=== PATIENT | male | born 1945 | race Caucasian/White ===

== ENCOUNTER 2017-06-11 09:49 | Emergency (ER) | payer MEDICARE, OTHER, SELFPAY ==
[2017-06-11 09:52] VITALS: BP 146/98; PULSE 81; RESP 22; TEMP 37; O2SAT 95; BMI 30.3
--- NOTE | 2017-06-11 10:05 | RAD_ITS ---
STUDY: X-RAY CHEST REASON FOR EXAM: Male, 71 years old. Dyspnea and palpitations. TECHNIQUE: Single portable frontal chest. COMPARISON: 2 views of the chest dated August 15, 2012. FINDINGS: There is stable appearance and positioning of the 2-lead left pectoral pacemaker, well placed. Patient is status post CABG. There is mixed interstitial and alveolar density within the medial right lung base in the lateral left lung base. There is no pleural effusion. There is no pneumothorax. There is new mild enlargement of the cardiomediastinal silhouette. There is no vascular congestion identified. Normal visualized pulmonary arteries. There is atherosclerotic calcification of the aortic arch with tortuosity. There are diffuse degenerative changes of the visualized thoracic spine. There is no acute osseous abnormality. There is no demonstrated abnormality of the visualized soft tissue structures of the upper abdomen. RAD/Chest 1 View (Portable) IMPRESSION: Foci of atelectasis versus early consolidation within the right medial lung base and left lateral lung base. Status post CABG. Atherosclerotic peripheral vascular disease. Stable appearance and positioning of the 2-lead left pectoral pacemaker. Mild cardiomegaly. No pleural effusion. No pneumothorax. Electronically Signed: Fran Mott MD at 10:48 EDT , Service support ,
--- NOTE | 2017-06-11 10:06 | EKG12_ITS ---
Test Reason : PALPS Blood Pressure : / mmHG Vent. Rate : 068 BPM Atrial Rate : 197 BPM P-R Int : 000 ms QRS Dur : 124 ms QT Int : 464 ms P-R-T Axes : 265 083 -71 degrees QTc Int : 493 ms Atrial flutter with variable A-V block with frequent ventricular-paced complexes Inferior infarct , age undetermined ST & T wave abnormality, consider lateral ischemia Abnormal ECG Confirmed by BEVERLEY ARITA, LISA ([id number]), city editor EDOUARD SAPP ([id number]) on 06/14/2017 1:00:24 PM Referred By: ANDERSON Confirmed By:LISA LOWERY MD
[2017-06-11 10:10] VITALS: O2SAT 91
--- NOTE | 2017-06-11 10:10 | ED.DCSUM_ITS ---
- ER Visit Summary Date of Service: 06/11/17 Chief Complaint: [Palpitations and shortness of breath] History of Present Illness: The patient is a 71 M [presents the emergency department with palpitations that started for 5 days ago. Patient states that he has a vibrating sensation in the middle of his chest.] Patient denies any chest pain. Patient states that he has not been able to sleep for the last 2 nights due to feeling short of breath. Patient describes some swelling in both lower extremities. Overall the patient does not feel like he has gained weight though. Patient states last pacer check was about a month ago when he was told that he had 8 years left on his battery life. Patient does have a history of coronary artery disease and history of atrial fibrillation. Physical Examination: [HEENT-PERRLA, EOMI. Cranial nerves II through XII grossly intact. TMs clear. Mucous membranes moist. No adenopathy. Cardiovascular-irregularly irregular with a 2 out of 6 systolic ejection murmur. Lungs-clear to auscultation, chest wall stable without crepitus or subcu emphysema Abdomen-normoactive bowel sounds, soft, nontender, no rebound or rigidity, no peritoneal signs. Extremities-intact ?4, normal range of motion, normal pulses, atraumatic]. +1 edema bilateral lower extremities that is symmetric. Test Results: EKG obtained on arrival showed atrial flutter with variable AV block as well as old inferior infarct noted and nonspecific ST changes noted] CBC with differential showed a white count of 6.4, hemoglobin 13.5, hematocrit 40.5, platelets 142. Chemistries unremarkable. BUN was 18 and creatinine 1.34. Troponin was 0.15. BNP was 516. Chest x-ray showed some atelectasis versus consolidation left lung base. Patient had cardiomegaly. Patient clinically does not have pneumonia or infectious process. Emergency Department Course and Treatment: [Patient case was discussed with Dr. Cam Fong his cracking and fanning machine operator. Dr. Fong recommended starting patient on Lasix and potassium. Patient was given 40 mg Lasix IV.] Patient had his pacemaker interrogated and he is chronically in atrial flutter. It is anticoagulated. Treatment Plan: [Patient states that he has been very anxious and is requesting something for anxiety. Patient was started on Lasix and potassium. Patient will also be dispensed an albuterol MDI at his request because he feels like he is having wheezing at times. Disposition: [Discharged home in stable condition.] Impression: [Atrial flutter Dyspnea suspect secondary to CHF Anxiety] This note was generated with [employer] dictation software. It may contain incorrect words, spelling, and punctuation that were not noted in review of the chart prior to signing ED Disposition - Plan for ED Patient: Chief Complaint: Palpitations Referrals: Asaf Sanon MD [Primary Care Provider] -
[2017-06-11 10:33] LABS: Basophil# 0.01 X10^3/uL; Basophil% 0.2 % (0-1); Eosinophil# 0.08 X10^3/uL; Eosinophils% 1.3 % (0-5); Hematocrit 40.5 % (40-54); Hemoglobin 13.6 g/dl (13.0-16.5); Lymphocyte % 12.5 % (19-41); Mean Corp Hgb Conc 33.6 g/gl (32-36); Mean Corpuscular Volume 101.3 fL (80-94); Mean Platelet Vol. 11.2 fl (6.2-12.0); Monocyte# 0.53 X10^3/uL; Monocyte% 8.3 % (0-10); Neutrophil # 4.97 X10^3/uL (2.7-7.7); Neutrophil % 77.5 % (47-70); Platelet Count 142 K/mm3 (150-450); RBC Distribution Width CV 14.3 % (11.6-14.6); White Blood Count 6.4 K/mm3 (4.4-11.0)
[2017-06-11 10:35] LABS: POSITIVE COUNT NO; POSITIVE DIFFERENTIAL NO; POSITIVE MORPHOLOGY NO
[2017-06-11 10:39] VITALS: BP 162/106; PULSE 60; RESP 18; O2SAT 94
[2017-06-11 10:47] LABS: Anion Gap 8 (5-15); BUN 18 mg/dL (7-18); BUN/Creat Ratio 13.4 RATIO (10-20); Calcium,Total 8.9 mg/dL (8.5-10.1); Chloride 109 mmol/L (98-107); Creatinine, Serum 1.34 mg/dL (0.70-1.30); EST Glomerular Filtration Rate 55 mL/min (>60); Est Glom Filt Rate - Afr Amer 67 mL/min (>60); Estimated Creatinine Clearance 55.49 ml/min; Glucose 156 mg/dL (74-106); Potassium 3.8 mmol/L (3.5-5.1); Sodium Level 139 mmol/L (136-145)
[2017-06-11 11:01] LABS: BNP,B-Type NATRIURETIC PEPTIDE 516.1 pg/mL (0-100)
[2017-06-11 11:45] VITALS: BP 154/100; PULSE 69; RESP 22; O2SAT 96
[2017-06-11] MEDS: Furosemide 40 MG/4 ML Vial IV (12:03)
--- NOTE | 2017-06-11 12:05 | ED.DEP ---
ED Disposition - Plan for ED Patient: Chief Complaint: Palpitations Instructions: ED Paroxysmal Atrial Flutter, ED Afib, ED CHF General, ED Stress React Prescriptions: Furosemide [Lasix] 40 mg PO BIDLX #60 tab Lorazepam [Ativan] 1 mg PO TID PRN PRN #15 tab PRN Reason: Anxiety Potassium Chloride [K-Dur] 20 meq PO DAILY #30 tab Referrals: Asaf Sanon MD [Primary Care Provider] - Additional Instructions: Follow up with Dr. Fong's office Discontinue your HCTZ medication
--- NOTE | 2017-06-11 12:51 | PCM.PACRNU ---
Pacer Nurse Hospital Visit Notes: Dual Chamber Pacemaker Evaluation: Interrogation completed at bedside in ER#14 per MD order for increased SOB. Interrogation shows atrial burden 99.9%. Pt appears to be in atrial flutter continuously since 05/31/17. No VHR episodes noted since last check on 05/31/17. Ventricular rate fairly well controlled. Left pectoral pocket/incision w/o s/s of infection or erosion. Presenting rhythm shows atrial flutter with ventricular paced @ 62 ppm. CENTRAL SUPPLY MANAGER=94.2%. Battery longevity approx 5.5 yrs. Lead impedances and sensing remain stable. Normal PPM function. No parameter changes made. Dr. Garcia aware of above findings. Dr. Fong notified of above findings. No parameter changes made. Mel Jackson RN - Pacer Check Procedure Procedures: 94951 PM Eval Dual
== END 2017-06-11 12:30 | disposition home or self-care (01) ==
PROVIDERS: Emergency Provider Emergency Medicine; Family Provider Family Medicine; PCP Family Medicine
DX: I48.92 Unspecified atrial flutter (principal); R06.00 Dyspnea, unspecified; I50.9 Heart failure, unspecified; F41.9 Anxiety disorder, unspecified; I25.10 Atherosclerotic heart disease of native coronary artery without angina pectoris; I48.91 Unspecified atrial fibrillation; I25.2 Old myocardial infarction; E78.00 Pure hypercholesterolemia, unspecified; Z95.0 Presence of cardiac pacemaker; Z79.02 Long term (current) use of antithrombotics/antiplatelets; Z79.82 Long term (current) use of aspirin; Z79.899 Other long term (current) drug therapy
CPT/HCPCS: 71045; 80048; 83880; 84484; 85025; 93005; 94640; 96374; 99284; A4216; J1940

== ENCOUNTER → 2017-06-22 14:53 | Outpatient (CLI) | payer MEDICARE, OTHER, SELFPAY ==
[2017-06-22 15:54] LABS: Anion Gap 5 (5-15); BUN 17 mg/dL (7-18); BUN/Creat Ratio 11.4 RATIO (10-20); Calcium,Total 9.3 mg/dL (8.5-10.1); Chloride 106 mmol/L (98-107); Creatinine, Serum 1.49 mg/dL (0.70-1.30); EST Glomerular Filtration Rate 49 mL/min (>60); Est Glom Filt Rate - Afr Amer 59 mL/min (>60); Glucose 168 mg/dL (74-106); Potassium 3.9 mmol/L (3.5-5.1); Sodium Level 140 mmol/L (136-145)
== END ==
PROVIDERS: Family Provider Family Medicine; PCP Family Medicine; Visit Provider Physician Assistant Medical
DX: I48.0 Paroxysmal atrial fibrillation (principal); I25.5 Ischemic cardiomyopathy
CPT/HCPCS: 36415; 80048

== ENCOUNTER 2017-06-26 11:08 | Day surgery (SDC) | payer MEDICARE, OTHER, SELFPAY ==
[2017-06-25 08:47] VITALS: BMI 30.4
--- NOTE | 2017-06-26 12:48 | PCM.OP.BLANK ---
Problem List (1) Atrial flutter Status: Chronic Operative Report Date of Procedure: 06/26/17 DC cardioversion. Indication: Atrial flutter with a controlled ventricular response rate status post pacemaker placement. Symptomatic. Procedure: The patient was seen by Dr. Pedersen of the critical care division and after informed consent was obtained anterior posterior pads were applied. The patient was then administered 4 mg of intravenous etomidate and then underwent DC cardioversion with 200 J of synchronized DC cardioversion energy with prompt reversal to sinus rhythm. EKG documented AV sequential pacing. Conclusion: Successful DC cardioversion to sinus rhythm. Patient would follow-up with EKG in the office in a week.
--- NOTE | 2017-06-26 13:31 | PCM.OP.BLANK ---
Operative Report Date of Procedure: 06/26/17 CONSCIOUS SEDATION REPORT DATE OF SERVICE: June 26, 2017 BRIEF HISTORY OF PRESENT ILLNESS: The patient is a 71-year-old male who presented to [facility] for elective outpatient cardioversion due to underlying atrial fibrillation. The patient's most recent echocardiogram revealed ejection fraction of approximately 30%. The patient did undergo a previous cardioversion in December 2016, for which he received 4 mg of etomidate. The patient denies any previous anesthetic complications. He is currently anticoagulated on Xarelto. He does have a history of obstructive sleep apnea, for which he is reportedly compliant with use of nocturnal CPAP therapy. PHYSICAL EXAMINATION: VITAL SIGNS: Reviewed and were acceptable. GENERAL: The patient is a male, in no apparent distress, speaking in full sentences. HEENT: Normocephalic, atraumatic. Mucous membranes are moist and pink. Good mouth opening noted. Trachea is midline. Good neck mobility. CHEST: S1, S2 irregularly irregular. No murmurs, rubs or gallops were noted. LUNGS: Clear to auscultation bilaterally without appreciable wheezes, rales or rhonchi. ABDOMEN: Soft, nontender, nondistended. Positive bowel sounds. EXTREMITIES: There is no clubbing, cyanosis or edema. ASA Class: II DESCRIPTION OF PROCEDURE: After confirmation of informed consent, the patient's anesthesia plan was reviewed in detail. Etomidate was chosen. Risks and benefits were reviewed and the patient agreed to proceed. At 1234, the patient was given 4 mg of etomidate. The patient achieved an appropriate level of sedation and was given a 200 joule synchronized cardioversion by Dr. Fong at the bedside. This was successful in achieving normal sinus rhythm. The patient was monitored until 1244, at which time he reached his baseline mental status and function. The patient tolerated the procedure well. COMPLICATIONS: None ESTIMATED BLOOD LOSS: None RECOMMENDATIONS: Okay to recover in usual fashion. Code Visit 9xxxx: Other Procedure See Report - [id number]
== END 2017-06-26 13:00 | disposition home or self-care (01) ==
LOC: CLSP 11:10
PROVIDERS: Family Provider Family Medicine; PCP Family Medicine; Visit Provider Internal Medicine Cardiovascular Disease
DX: I48.92 Unspecified atrial flutter (principal); I34.0 Nonrheumatic mitral (valve) insufficiency; I49.5 Sick sinus syndrome; I25.10 Atherosclerotic heart disease of native coronary artery without angina pectoris; I25.810 Atherosclerosis of coronary artery bypass graft(s) without angina pectoris; I25.5 Ischemic cardiomyopathy; E78.5 Hyperlipidemia, unspecified; G47.33 Obstructive sleep apnea (adult) (pediatric); I25.2 Old myocardial infarction; G62.9 Polyneuropathy, unspecified; I13.0 Hypertensive heart and chronic kidney disease with heart failure and stage 1 through stage 4 chronic kidney disease, or unspecified chronic kidney disease; N18.9 Chronic kidney disease, unspecified; I50.22 Chronic systolic (congestive) heart failure; Z79.82 Long term (current) use of aspirin; Z79.02 Long term (current) use of antithrombotics/antiplatelets; Z79.899 Other long term (current) drug therapy
CPT/HCPCS: 92960; 93005; J7040

== ENCOUNTER 2018-01-22 19:23 | Emergency (ER) | payer MEDICARE, OTHER, SELFPAY ==
[2018-01-22 19:24] VITALS: BP 96/73; PULSE 66; RESP 18; TEMP 36; O2SAT 99; BMI 27.8
--- NOTE | 2018-01-22 19:38 | EKG12_ITS ---
Test Reason : HYPERGLYCEMIA Blood Pressure : / mmHG Vent. Rate : 060 BPM Atrial Rate : 060 BPM P-R Int : 372 ms QRS Dur : 128 ms QT Int : 472 ms P-R-T Axes : 000 -11 259 degrees QTc Int : 472 ms Atrial-paced rhythm with prolonged AV conduction Left ventricular hypertrophy with QRS widening and repolarization abnormality Inferior infarct , age undetermined Abnormal ECG Confirmed by LEONIDAS ARITA, GERARD ([id number]), purchasing expeditor EDOUARD SAPP ([id number]) on 01/25/2018 2:30:21 PM Referred By: BENY Confirmed By:GERARD LAUREN MD
[2018-01-22 19:41] LABS: Bedside Glucose 309 mg/dL (70-110)
[2018-01-22] MEDS: 0.9% Normal Saline 1,000 ML 1000 ML IV (20:01)
[2018-01-22 20:14] LABS: Absolute Lymphocyte Count 0.67 X10^3/ul (0.83-4.51); Absolute Neutrophil Count 2.2 X10^3/uL (2.0-7.7); Basophil# 0.01 X10^3/uL; Basophil% 0.3 % (0-1); Eosinophil# 0.13 X10^3/uL; Eosinophils% 3.8 % (0-5); Hematocrit 44.9 % (40-54); Hemoglobin 15.3 g/dl (13.0-16.5); Lymphocyte # 0.67 X10^3/ul (4.0); Lymphocyte % 19.6 % (19-41); Mean Corp Hgb Conc 34.1 g/gl (32-36); Mean Corpuscular Hgb 32.2 pg (27.0-32.0); Mean Corpuscular Volume 94.5 fL (80-94); Mean Platelet Vol. 11.4 fl (6.2-12.0); Monocyte# 0.43 X10^3/uL; Monocyte% 12.6 % (0-10); Neutrophil # 2.18 X10^3/uL (2.7-7.7); Neutrophil % 63.7 % (47-70); Platelet Count 128 K/mm3 (150-450); RBC Distribution Width CV 13.8 % (11.6-14.6); Red Blood Count 4.75 M/mm3 (4.6-6.2); White Blood Count 3.4 K/mm3 (4.4-11.0)
[2018-01-22 20:19] LABS: POSITIVE COUNT NO; POSITIVE DIFFERENTIAL NO; POSITIVE MORPHOLOGY NO
[2018-01-22 20:30] LABS: Anion Gap 7 (5-15); BUN 20 mg/dL (7-18); BUN/Creat Ratio 13.2 RATIO (10-20); Calcium,Total 8.9 mg/dL (8.5-10.1); Chloride 99 mmol/L (98-107); Creatinine, Serum 1.51 mg/dL (0.70-1.30); EST Glomerular Filtration Rate 48 mL/min (>60); Est Glom Filt Rate - Afr Amer 58 mL/min (>60); Glucose 294 mg/dL (74-106); Potassium 4.1 mmol/L (3.5-5.1); Sodium Level 135 mmol/L (136-145)
[2018-01-22 20:45] LABS: Bacteria 0 SEEN /hpf (None Seen); Mucous, Urine 0 SEEN /hpf (<or=2+); Red Blood Cells-Urine 0 SEEN /hpf (0-5); Squamous Epithelial Cells - UA 0 SEEN /hpf (0-5)
[2018-01-22 20:49] LABS: Color, Urine Yellow (Yellow); Glucose, Dipstick 1000 mg/dl (Normal); Ketone-Dipstick 5 mg/dl (Negative); Leukocyte Esterase-Dipstick Negative /ul (Negative); Nitrite-Dipstick Negative (Negative); Occult Blood-Urine 25 /ul (Negative); Protein-Dipstick 30 mg/dl (Negative); Specific Gravity, Urine 1.015 (1.002-1.030); Urine Bilirubin Dipstick Negative (Negative); Urine Clarity Clear (Clear); Urine Urobilinogen Normal (Normal)
[2018-01-22 20:58] LABS: Hyaline Cast 0-5 SEEN /lpf (0-5)
[2018-01-22 20:59] LABS: White Blood Cells 0-5 SEEN /hpf (0-5)
--- NOTE | 2018-01-22 21:22 | ED.VISSUMM ---
- ER Visit Summary Date of Service: 01/22/18 Chief Complaint: Blood sugar greater than 500 on routine blood work History of Present Illness: The patient is a 72 M who has multiple medical problems presents because blood sugar 8500. He had polyuria, polydipsia, nocturia and polyphagia for some time. He also reports intermittent blurred vision. He denies double vision or loss of vision. Denies fever, chills or night sweats. He denies trouble speech or swallowing. He denies cardiac respiratory symptoms. He denies nausea, vomiting or diarrhea. He denies skin lesion. He denies any neurologic symptoms. Past medical history coronary disease, GA, ischemic heart myopathy, paroxysmal atrial fibrillation, hypertension hypercholesterolemia. Does have a pacemaker. Physical Examination: Vital signs noted and unremarkable. HEENT exam is marked with dry mucosa and tongue. Trach is midline. Lungs are clear to auscultation. Heart is regular. Abdomen is soft nontender. Patient is alert and oriented ?3. Motor is 5 over 5. Sensory is intact. DTRs are symmetric with no clonus or Babinski sign. Cranial 2 through 12 are intact. Cerebellar testing is normal. Test Results: EKG reveals a atrial paced rhythm with prolonged [place] interval and QRS duration. There is evidence of LVH with repolarization changes. There is also evidence of a prior inferior GA. White count is 3.4 with 63% segs 30% lymphocytes. Sodium is 135. CO2 is 29 with an anion gap of 7. Blood sugars 294. BUN is 20 and currently is 1.51. Most recent creatinine was June 22, 2017 and was 1.49. Urine is marked for ketones, 5 and glucose, 1000. Emergency Department Course and Treatment: Patient has classic symptoms for new onset diabetes. He was administered 1 L of normal saline wide open. Since his anion gap is normal will treat with Metformin. She does first dose emergency department. He is to follow-up with Dr. tay in 1 week for diabetic education and counseling. Treatment Plan: Outpatient follow-up with his primary care physician Dr. Asaf tay Disposition: Discharged home in stable improved condition Impression: Newly diagnosed diabetes History coronary disease History of myocardial infarction History of ischemic cardia myopathy History hypertension History of hypercholesterolemia This note was generated with [employer] software. It may contain incorrect words, spelling, and punctuation that were not noted in review of the chart prior to signing ED Disposition - Plan for ED Patient: Disposition: Home or Assisted Living Chief Complaint: Hyperglycemia Instructions: ED Hyperglycemia Diabetic Prescriptions: Metformin HCl 500 mg PO BID #60 tablet Referrals: Asaf Sanon MD [Primary Care Provider] - 1 Week Additional Instructions: Your prescription was electronically transmitted to [facility] pharmacy in [facility]. [facility] for [facility] of blood sugar and diabetic counseling and education.
--- NOTE | 2018-01-22 21:27 | ED.DCSUM_ITS ---
- ER Visit Summary Date of Service: 01/22/18 Chief Complaint: Blood sugar greater than 500 on routine blood work History of Present Illness: The patient is a 72 M who has multiple medical problems presents because blood sugar 8500. He had polyuria, polydipsia, nocturia and polyphagia for some time. He also reports intermittent blurred vision. He denies double vision or loss of vision. Denies fever, chills or night sweats. He denies trouble speech or swallowing. He denies cardiac respiratory symptoms. He denies nausea, vomiting or diarrhea. He denies skin lesion. He denies any neurologic symptoms. Past medical history coronary disease, DC, ischemic heart myopathy, paroxysmal atrial fibrillation, hypertension hypercholesterolemia. Does have a pacemaker. Physical Examination: Vital signs noted and unremarkable. HEENT exam is marked with dry mucosa and tongue. Trach is midline. Lungs are clear to auscultation. Heart is regular. Abdomen is soft nontender. Patient is alert and oriented ?3. Motor is 5 over 5. Sensory is intact. DTRs are symmetric with no clonus or Babinski sign. Cranial 2 through 12 are intact. Cerebellar testing is normal. Test Results: EKG reveals a atrial paced rhythm with prolonged ID interval and QRS duration. There is evidence of LVH with repolarization changes. There is also evidence of a prior inferior DC. White count is 3.4 with 63% segs 30% lymphocytes. Sodium is 135. CO2 is 29 with an anion gap of 7. Blood sugars 294. BUN is 20 and currently is 1.51. Most recent creatinine was June 22, 2017 and was 1.49. Urine is marked for ketones, 5 and glucose, 1000. Emergency Department Course and Treatment: Patient has classic symptoms for new onset diabetes. He was administered 1 L of normal saline wide open. Since his anion gap is normal will treat with Metformin. She does first dose emergency department. He is to follow-up with Dr. tay in 1 week for diabetic education and counseling. Treatment Plan: Outpatient follow-up with his primary care physician Dr. Asaf tay Disposition: Discharged home in stable improved condition Impression: Newly diagnosed diabetes History coronary disease History of myocardial infarction History of ischemic cardia myopathy History hypertension History of hypercholesterolemia This note was generated with [employer] software. It may contain incorrect words, spelling, and punctuation that were not noted in review of the chart prior to signing ED Disposition - Plan for ED Patient: Disposition: Home or Assisted Living Chief Complaint: Hyperglycemia Instructions: ED Hyperglycemia Diabetic Prescriptions: Metformin HCl 500 mg PO BID #60 tablet Referrals: Asaf Sanon MD [Primary Care Provider] - 1 Week Additional Instructions: Your prescription was electronically transmitted to [facility] pharmacy in [facility]. [facility] for [facility] of blood sugar and diabetic counseling and education.
[2018-01-22 21:41] VITALS: BP 140/81; PULSE 61; RESP 16; O2SAT 98
== END 2018-01-22 21:41 | disposition home or self-care (01) ==
PROVIDERS: Emergency Provider Emergency Medicine; Family Provider Family Medicine; PCP Family Medicine
DX: E11.9 Type 2 diabetes mellitus without complications (principal); I25.10 Atherosclerotic heart disease of native coronary artery without angina pectoris; I25.2 Old myocardial infarction; G72.89 Other specified myopathies; I10 Essential (primary) hypertension; E78.00 Pure hypercholesterolemia, unspecified; Z95.0 Presence of cardiac pacemaker
CPT/HCPCS: 80048; 81001; 82962; 85025; 93005; 96360; 96361; 99284; J7030

== ENCOUNTER → 2018-03-29 12:59 | Outpatient (CLI) | payer MEDICARE, OTHER, SELFPAY ==
[2018-03-14 09:37] VITALS: BMI 27.8
--- NOTE | 2018-03-29 13:01 | ECHOD_ITS ---
Reason For Study: ATRIAL FIB-FLUTTER Procedure This was a 2D Doppler, Color Flow transthoracic echocardiogram. Exam performed in department. Left Ventricle Normal LV size. Mild concentric left ventricular hypertrophy. The estimated ejection fraction is 35 %. Moderate global left ventricular systolic dysfunction. Unable to assess diastolic dysfunction due to arrhythmia. Right Ventricle Normal RV size. ICD or pacer leads identified within the right ventricle. Normal systolic function. Atria The left atrium is mildly enlarged. The right atrium is mildly enlarged. Mitral Valve Normal mitral valve. Mild (1+) eccentric mitral valve insufficiency. Tricuspid Valve Normal tricuspid valve. Aortic Valve Normal aortic valve. Trisinus/trileaflet aortic valve. Mild (1+) eccentric aortic valve insufficiency. Pulmonic Valve Normal pulmonic valve. Great Vessels Normal aortic root. The pulmonary artery is normal size. Normal inferior vena cava. Pericardium/Pleural No pericardial effusion. MMode/2D Measurements & Calculations LVIDd: 5.5 cm IVSd: 1.2 cm Ao root diam: 3.6 cm LVIDs: 5.0 cm LVPWd: 1.3 cm RVDd: 3.6 cm FS: 7.6 % LAV(MOD-bp): 82.2 ml LVAd ap4: 43.3 cm2 SV(MOD-sp4): 51.8 ml LAV(MOD-bp) Indexed: 38.3 ml/m2 EDV(MOD-sp4): 176.6 ml LAV(MOD-sp2): 79.3 ml EDV(sp4-el): 179.9 ml LAV(MOD-sp4): 70.6 ml LVAs ap4: 34.8 cm2 ESV(MOD-sp4): 124.8 ml ESV(sp4-el): 127.3 ml EF(MOD-sp4): 29.3 % EF(sp4-el): 29.2 % SV(sp4-el): 52.6 ml LA A4 area: 25.5 cm2 LA dimension(2D): 4.4 cm RA A4 area: 23.2 cm2 Time Measurements MV dec time: 0.19 sec Doppler Measurements & Calculations MV E max mazin: 75.8 cm/sec Lat Peak E' Mazin: 10.2 cm/sec Med Peak E' Mazin: 3.7 cm/sec MV A max mazin: 55.7 cm/sec E/E' lat: 7.4 E/E' med: 20.6 MV E/A: 1.4 Ao V2 max: 122.7 cm/sec AI max mazin: 424.8 cm/sec LV V1 max: 78.1 cm/sec Ao max P.0 mmHg AI max P.2 mmHg LV V1 max P.4 mmHg AI dec slope: 185.9 cm/sec2 AI P1/2t: 669.1 msec PA V2 max: 64.4 cm/sec TR max mazin: 282.2 cm/sec TR max P.9 mmHg Interpretation Summary Normal LV size. Mild concentric left ventricular hypertrophy. The estimated ejection fraction is 35 %. Moderate global left ventricular systolic dysfunction. Unable to assess diastolic dysfunction due to arrhythmia. ICD or pacer leads identified within the right ventricle. Compared to previous study, the left ventricular systolic function has improved.. Ordering Physician: Cam Fong Referring Physician: SATURNINO GRIGSBY Performed By: Concetta Isaac RDCS
== END ==
PROVIDERS: Family Provider Family Medicine; PCP Family Medicine; Referring Provider Internal Medicine Cardiovascular Disease; Visit Provider Internal Medicine Cardiovascular Disease
DX: I25.5 Ischemic cardiomyopathy (principal)
CPT/HCPCS: 93306

== ENCOUNTER → 2018-07-31 | Outpatient (CLI) | payer MEDICARE, OTHER, SELFPAY ==
[2018-03-14 09:37] VITALS: BMI 27.8
--- NOTE | 2018-07-31 09:46 | VDLE_ITS ---
Reason For Study: RLE pain RIGHT LEFT GSV is normal. CFV is compressible, spontaneous, phasic, CFV is compressible, spontaneous, phasic, competent, and demonstrates normal competent and demonstrates normal augmentation. augmentation. FV is compressible, spontaneous, phasic, competent and demonstrates normal augmentation. POP V is compressible, spontaneous, phasic, competent and demonstrates normal augmentation. T/P Trunk is compressible. PTV is compressible. RT PerV is compressible. Procedure Exam performed in department. A preliminary report was called and/or faxed to Jessica Olivas @ [phone] @ 10:10 am. Interpretation Summary Deep veins of the right lower extremity are patent and compressible segmentally. There is no evidence of right lower extremity deep vein thrombosis. Valvular competence appears intact within the proximal deep venous system on the right . The right greater saphenous vein appears patent and compressible segmentally. Ordering Physician: Jessica Olivas Referring Physician: Josemanuel Riley Performed By: Alina Sullivan, MEIR, RVT
== END | disposition home or self-care (01) ==
LOC: CVS 09:44
PROVIDERS: Family Provider Internal Medicine; PCP Internal Medicine; Referring Provider Physician Assistant; Visit Provider Physician Assistant
DX: M79.661 Pain in right lower leg (principal)
CPT/HCPCS: 93971

== ENCOUNTER 2018-08-07 13:04 | Observation (INO) | payer MEDICARE, OTHER, SELFPAY ==
[2018-03-14 09:37] VITALS: BMI 27.8
[2018-08-07] VITALS (13 sets, daily range): BP systolic 83–124; BP diastolic 62–92; PULSE 61–143; RESP 13–19; TEMP 36.1–36.9; O2SAT 93–100; BMI 26.7; BMI 26.4
--- NOTE | 2018-08-07 13:12 | EKG12_ITS ---
Test Reason : POST-CARDIOVERSION Blood Pressure : / mmHG Vent. Rate : 067 BPM Atrial Rate : 067 BPM P-R Int : 192 ms QRS Dur : 178 ms QT Int : 470 ms P-R-T Axes : 000 -71 109 degrees QTc Int : 496 ms AV dual-paced rhythm Abnormal ECG Confirmed by KATJA SHAIKH ([id number]), content editor PEGGY FRANCOIS ([id number]) on 08/12/2018 10:04:32 AM Referred By: Dariana Valentin Confirmed By:KATJA SHAIKH
--- NOTE | 2018-08-07 13:16 | RAD_ITS ---
STUDY: X-RAY CHEST REASON FOR EXAM: Male, 72 years old. Chest pain. TECHNIQUE: Single AP portable view of the chest. COMPARISON: Comparison is made with prior study dated June 11, 2017. FINDINGS: EKG electrodes are seen. Minimal residual pleural parenchymal changes at the left lung base although there has been improvement as compared to prior study. Sternal cerclage wires and vascular clips are present from a prior sternotomy and coronary artery bypass graft procedure (CABG). A left-sided dual-chamber pacemaker is seen. Cardiomegaly. Normal mediastinum and kaushik. Normal visualized pulmonary arteries. There is atherosclerotic calcification of the aortic arch with tortuosity. There are diffuse degenerative changes of the visualized thoracic spine. Normal visualized ribs, clavicles, and shoulders. There is no demonstrated abnormality of the visualized soft tissue structures of the upper abdomen. RAD/Chest 1 View (Portable) IMPRESSION: Mild pleural parenchymal changes at the left lung base. Electronically Signed: Andre Pena, at 14:03 EDT , Service support ,
[2018-08-07] MEDS: dilTIAZem 25 MG/5 ML Vial 20 MG IV BOLUS (13:38)
[2018-08-07 13:39] LABS: Absolute Lymphocyte Count 0.43 X10^3/ul (0.83-4.51); Absolute Neutrophil Count 3.4 X10^3/uL (2.0-7.7); Basophil# 0.01 X10^3/uL; Basophil% 0.2 % (0-1); Eosinophil# 0.14 X10^3/uL; Hematocrit 38.7 % (40-54); Hemoglobin 12.2 g/dl (13.0-16.5); Lymphocyte # 0.43 X10^3/ul (4.0); Lymphocyte % 9.3 % (19-41); Mean Corp Hgb Conc 31.5 g/gl (32-36); Mean Corpuscular Hgb 30.3 pg (27.0-32.0); Mean Corpuscular Volume 96.3 fL (80-94); Mean Platelet Vol. 11.6 fl (6.2-12.0); Monocyte# 0.64 X10^3/uL; Monocyte% 13.8 % (0-10); Neutrophil # 3.42 X10^3/uL (2.7-7.7); Neutrophil % 73.7 % (47-70); Platelet Count 135 K/mm3 (150-450); RBC Distribution Width CV 16.5 % (11.6-14.6); RBC Distribution Width SD 57.8 fl (35.1-43.9); Red Blood Count 4.02 M/mm3 (4.6-6.2); White Blood Count 4.6 K/mm3 (4.4-11.0)
--- NOTE | 2018-08-07 13:40 | ED.VISSUMM ---
- ER Visit Summary Date of Service: 08/07/18 Chief Complaint: Palpitations History of Present Illness: The patient is a 72 M history of CAD, OK, A. fib, pacemaker, double bypass surgery in 2004, anticoagulated on Xarelto, zyu-[id number]-omlbyyshi diabetes, ischemic cardiomyopathy. Patient had palpitations that started suddenly today and is been continuous. He denies any chest pain or shortness of breath. It began around 10 AM. Says he felt a little lightheaded but did not pass out. He denies any recent illness. He is currently on amiodarone and beta-jeffery for his A. fib. Physical Examination: Older male initial blood pressure 83/62 while in the room his pressure was 121/68. He is currently getting a fluid bolus. He has a wide-complex tachycardia on the monitor with a rate of 143. Afebrile. He is awake alert he is talking he is interacting well he is tolerating the heart rate well. H EENT exam unremarkable. Neck nontender no lymphadenopathy. Lungs clear to auscultation bilaterally. Heart tachycardic rate about 141 I do not appreciate a murmur abdomen is soft and nontender. Normal bowel sounds no peritoneal signs. Patient is moving all 4 extremities. He has 1+ pitting edema both lower extremities. Calves are nontender. Neurologically is awake and alert with no focal motor deficits. Test Results: Chest x-ray shows cardiomegaly with left-sided pacemaker but no acute process. Initial EKG shows a wide complex tachycardia that may be A. fib with aberrancy cannot be ruled out that it is V. tach or another rhythm. But is tolerating it very well. CBC shows a white count of 4 hemoglobin 12. Chemistries are unremarkable creatinine 1.33 is some known renal insufficiency troponin slightly elevated 0.092. Emergency Department Course and Treatment: Older male with a significant cardiac history with a pacemaker. History of A. fib. Has a wide-complex tachycardia this could be atrial fib or atrial flutter with aberrancy. It could be an SVT with a bundle branch block or V. tach. He is awake alert currently he is normotensive. I am a try to treat him with IV Cardizem. We may have to cardiovert the patient and pacer pads are in place. Treatment Plan: Patient was given IV Cardizem without any relief of his symptoms. Spoke to cardiology we felt it was his best interest to cardioverting. Patient was given 50 mg IV at propofol had good conscious sedation cardioverted at 360 J x 1. Patient immediately went into a sinus rhythm. He woke up from the conscious sedation and currently is doing very well on repeat exam at 1440. Due to patient's elevated troponin and cardioversion and history I feel is appropriate to admit him overnight for further evaluation and cardiac monitoring. I spoke to the hospitalist. Disposition: Admission Impression: Acute palpitations secondary to wide-complex tachycardia secondary to acute A. fib with RVR and aberrancy History of A. fib anticoagulated on Xarelto History of pacemaker History of ischemic cardiomyopathy, CAD, double bypass surgery Acute conscious sedation by ER physician using propofol for 10 minutes Acute cardioversion by ER physician This note was generated with [employer] dictation software. It may contain incorrect words, spelling, and punctuation that were not noted in review of the chart prior to signing ED Disposition - Plan for ED Patient: Disposition: Acute Care [facility]
[2018-08-07 13:41] LABS: Differential Indicated SCAN CRITERIA MET; POSITIVE COUNT NO; POSITIVE DIFFERENTIAL YES; POSITIVE MORPHOLOGY NO
[2018-08-07 13:48] LABS: Anion Gap 8 (5-15); BUN 28 mg/dL (7-18); BUN/Creat Ratio 21.1 RATIO (10-20); Calcium,Total 9.4 mg/dL (8.5-10.1); Chloride 103 mmol/L (98-107); Creatinine, Serum 1.33 mg/dL (0.70-1.30); EST Glomerular Filtration Rate 56 mL/min (>60); Est Glom Filt Rate - Afr Amer 67 mL/min (>60); Estimated Creatinine Clearance 53.48 ml/min; Glucose 140 mg/dL (74-106); Potassium 3.6 mmol/L (3.5-5.1); Sodium Level 139 mmol/L (136-145)
--- NOTE | 2018-08-07 14:41 | HP.PCM_ITS ---
Problem List (1) Atrial fibrillation with RVR Status: Acute (2) Hypotensive episode Status: Acute (3) Presence of cardiac pacemaker Status: Chronic (4) Sick sinus syndrome Status: Chronic Comment: S/P PPM November 2005; (5) Atherosclerosis of coronary artery bypass graft without angina pectoris Status: Chronic Qualifiers: [place] vs. transplanted heart: [place] heart Qualified Code(s): I25.810 - Atherosclerosis of coronary artery bypass graft(s) without angina pectoris (6) Ischemic cardiomyopathy Status: Chronic (7) Hyperlipidemia Status: Chronic Qualifiers: Hyperlipidemia type: pure hypercholesterolemia Qualified Code(s): E78.00 - Pure hypercholesterolemia, unspecified; E78.0 - Pure hypercholesterolemia (8) Hypertension Status: Chronic Qualifiers: Hypertension type: essential hypertension Qualified Code(s): I10 - Essential (primary) hypertension (9) Atherosclerosis of coronary artery of [place] heart without angina pectoris Status: Chronic Qualifiers: Coronary Disease-Associated Artery/Lesion type: [place] artery Qualified Code(s): I25.10 - Atherosclerotic heart disease of [place] coronary artery without angina pectoris Comment: PTCA/Stent to RCA 06/27/2004; CABG with MCKENZIE to LAD and free MARGAUX to OM2 in June 2004; PTCA/Stent of the proximal LAD June 2007; (10) Chronic systolic (congestive) heart failure Status: Chronic History of Present Illness Date of Admission: 08/07/18 Chief Complaint: Chest pain, Lightheadedness, Dizziness, Hypotensive. The patient is a 72 y/o M w/ PMHx: Diabetes mellitus type II, CKD stage III (baseline Cr 1.3-1.5), PAF/PAFlutter s/p prior Cardioversions, Hx PVT, Sick sinus syndrome s/p pacemaker placement, CAD s/p PTCA/Stent to RCA 06/27/2004, CABG x 2 with MCKENZIE to LAD and free MARGAUX to OM2 in June 2004,PTCA/Stent of the proximal LAD June 2007, HTN, HLD, Ischemic Cardiomyopathy, Chronic Systolic CHF, Anxiety and Depression who presents to the [facility] ED on 08/07/18 with history of onset at approximately 10 AM palpitations, sensation of racing heart with associated lightheadedness and severe fatigue and malaise with no associated chest discomfort or dyspnea prompting eventual presentation to the ED for evaluation. He notes that he had similar presentations in the past with episodes of atrial fibrillation with RVR. He denies any recent illnesses. Work- up in the ED initially T 96.9, heart rate 143, BP 83/62, respiratory rate 18, 98% on room air--> HR 140, with cardioversion, successful with rate following 71, BP 112/89, respiratory rate 16, 96% on 2 L, CBC with WBC 4.6, hemoglobin 12.2, platelet 135 with mild shift, BMP with BUN/Cr 28/1.33, glucose 140, trop 0.092, initial EKG with atrial fibrillation with RVR, follow-up EKG following cardioversion w/ successfully cardioverted, paced, CXR with mild pleural- parenchymal changes at the left lung base. In the ED patient administered Cardizem 20 mg IV bolus as well as propofol and normal saline. ED physician discussed case with Dr. Fong who recommended cardioversion. Past Medical History Past Medical History (Chronic Problems): Chronic Problems (Last Reviewed 03/14/18 @ 09:28 by Cam Fong MD) Paroxysmal atrial fibrillation (Chronic) DCCV 12/2016 and June 2017; Nonrheumatic mitral (valve) insufficiency (Chronic) Paroxysmal ventricular tachycardia (Chronic) Atrial flutter (Chronic) Presence of cardiac pacemaker (Chronic ~08/19/12) Sick sinus syndrome (Chronic) S/P PPM November 2005; H/O coronary artery bypass surgery (Chronic ~06/28/04) MCKENZIE-LAD, Free MARGAUX-OM2 History of coronary artery stent placement (Chronic) Stent - RCA 06/2004 Stent-LAD 06/2007 Atherosclerosis of coronary artery bypass graft without angina pectoris (Chronic) Ischemic cardiomyopathy (Chronic) Hyperlipidemia (Chronic) Hypertension (Chronic) Atherosclerosis of coronary artery of [place] heart without angina pectoris (Chronic) PTCA/Stent to RCA 06/27/2004; CABG with MCKENZIE to LAD and free MARGAUX to OM2 in June 2004; PTCA/Stent of the proximal LAD June 2007; Chronic systolic (congestive) heart failure (Chronic) Medical History: Medical History (Last Reviewed 03/14/18 @ 09:28 by Cam Fong MD) Nonrheumatic mitral (valve) insufficiency (Chronic) I34.0 Paroxysmal ventricular tachycardia (Chronic) I47.2 Atrial flutter (Chronic) I48.92 Sick sinus syndrome (Chronic) I49.5 S/P PPM November 2005; Atherosclerosis of coronary artery bypass graft without angina pectoris (Chronic) I25.810 Ischemic cardiomyopathy (Chronic) I25.5 Hyperlipidemia (Chronic) E78.5 Hypertension (Chronic) I10 Atherosclerosis of coronary artery of [place] heart without angina pectoris (Chronic) I25.10 PTCA/Stent to RCA 06/27/2004; CABG with MCKENZIE to LAD and free MARGAUX to OM2 in June 2004; PTCA/Stent of the proximal LAD June 2007; Chronic systolic (congestive) heart failure (Chronic) I50.22 History of cardioversion Onset Date: ~12/25/16 Z98.890 Obstructive sleep apnea G47.33 Old myocardial infarction Onset Date: ~06/2004 I25.2 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 Renal insufficiency N28.9 Allergies Penicillins Adverse Reaction (Mild, Verified 03/14/18 08:51) Upset Stomach SEASONAL Allergy (Mild, Uncoded 01/22/18 19:24) Other Home Medications: Ambulatory Orders Medication Instructions Recorded Amiodarone HCl 200 mg PO DAILY 08/07/18 Gabapentin [Neurontin] 300 mg PO PRN PRN 08/07/18 Latanoprost 0.005% [Xalatan 1 drp QHS 08/07/18 Opthalmic] Lisinopril 5 mg PO QHS 08/07/18 Metoprolol Tartrate [Lopressor] 100 mg PO DAILY 08/07/18 Prednisolone Acetate [Pred Forte] 1 drp OP QHS 08/07/18 Rivaroxaban [Xarelto] 20 mg PO DAILY 08/07/18 Rosuvastatin Calcium [Crestor] 40 mg PO QHS 08/07/18 Tamsulosin HCl [Flomax] 0.4 mg PO DAILY 08/07/18 Venlafaxine HCl [Venlafaxine HCl 150 mg PO DAILY 08/07/18 ER] Surgical History: Surgical History (Last Reviewed 03/14/18 @ 09:28 by Cam Fong MD) Presence of cardiac pacemaker (Chronic) Onset Date: ~08/19/12 Z95.0 H/O coronary artery bypass surgery (Chronic) Onset Date: ~06/28/04 Z95.1 MCKENZIE-LAD, Free MARGAUX-OM2 History of coronary artery stent placement (Chronic) Z95.5 Stent - RCA 06/2004 Stent-LAD 06/2007 History of electrophysiologic study Onset Date: ~05/2008 Z98.890 07/09/07 History of right hip replacement Z96.641 Surgical History: coronary bypass surgery, - - CABG x2, PCI, right hip replacement, pacemaker placement, bilateral total knee replacement. 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 Drugs: None - *Family History Maternal Family History: Family History (Last Reviewed 03/14/18 @ 09:28 by Cam Fong MD) Mother CVA (cerebral vascular accident) Hypertension Sister Hypertension Daughter Brain aneurysm History Items: - - Patient notes a maternal family history of hypertension. Paternal Family History: Family History (Last Reviewed 03/14/18 @ 09:28 by Cam Fong MD) Mother CVA (cerebral vascular accident) Hypertension Sister Hypertension Daughter Brain aneurysm History Items: - - Patient notes a paternal family history of coronary disease, heart disease, passed from [place]. Review of Systems Constitutional: Reports: Malaise, Weakness, Fatigue. Denies: Chills, Fever, Weight Change HEENT: Denies: Head Aches, Sinus Congestion, Sinus Drainage Cardiovascular: Reports: Edema, Light Headedness, Palpitations. Denies: Chest Pain, Chest Pressure, Chest Tightness, Heaviness, Paroxysmal Noc. Dyspnea, Syncope Respiratory: Denies: Cough, Shortness of breath at rest, Sputum production Gastrointestinal: Denies: Abdominal Pain, Nausea, Vomiting Genitourinary: Denies: Dysuria Musculoskeletal: Reports: Joint Pain. Denies: Joint Tenderness Skin: Denies: Rash, Wounds Neurological: Reports: - - Dizziness.. Denies: Focal weakness, Numbness, Tingling Psychiatric: Reports: Anxiety, Depression. Denies: Homicidal Ideations, Suicidal Ideations Hematologic/ Lymphatic: Reports: Anemia, Easy Bruising, Easy Bleeding VTE Information - Inpt Only VTE Present on Admission: No VTE Mechan Device Prophylaxis: SCD's VTE Pharm Prophylaxis ordered?: Yes Patient Problems: Active and Suspected Problems (Last Reviewed 03/14/18 @ 09:28 by Cam Fong MD) Atrial fibrillation with RVR (Acute) Hypotensive episode (Acute) Subjective: Seated upright in ED bed, notably improved since cardioversion successfully return to paced rhythm. Objective: Physical Examination: General: awake, alert, oriented x 3 and cooperative, seated upright in the ED bed, fatigued appearing but notes he is feeling remarkably improved since initial presentation status post successful cardioversion. Skin: normal color, turgor, no icterus, cyanosis except occasional very staged ecchymoses to extremities, some abrasions to bilateral lower extremity shins. HEENT: AT/NC, EOMI, PERRLA, only dry MM, no carotid bruits or JVD noted. Lungs: CTA bilaterally, moderate effort, moderate decrease BL bases, no rales, ronchi or wheezing. Heart: Initially irregular regular with atrial fibrillation with RVR, now paced; no gallop, rub audible. Abdomen: soft, overweight, NTTP, ND, normal BS, no HSM. Extremities: no cyanosis, clubbing, lateral lower extremity pedal to mid mayes 1+ pitting edema. Neurological: patient awake, alert, oriented x 3; cognitive function intact; pupils equally reactive to light and accomodation; cranial nerves II-XII grossly normal, moving all 4 extremities, no focal deficits, strength [place] to severely global decrease secondary to acute presentation. Psychiatric: affect appears fatigued, no acute evidence of depressive or anxiety feelings. - Physical Exam Vital Signs Temp Pulse Resp BP Pulse Ox 96.9 F L 140 H 16 112/89 H 96 08/07/18 13:06 08/07/18 14:22 08/07/18 14:22 08/07/18 14:22 08/07/18 14:14 Oxygen Flow Rate (L/min) [1 ( 2 Initial Baseline)] Oxygen Flow Rate (L/min) 2 Oxygen Delivery Method [1 ( Nasal Cannula Initial Baseline)] Oxygen Delivery Method Nasal Cannula Weight: 197 lb 1.492 oz Body Mass Index (BMI) 26.7 Finger Stick Blood Glucose 309 Laboratory Tests Past 24 Hrs 08/07/18 08/07/18 13:20 13:20 WBC 4.6 RBC 4.02 L Hgb 12.2 L Hct 38.7 L MCV 96.3 H MCH 30.3 MCHC 31.5 L RDW 16.5 H RDW Differential 57.8 H Plt Count 135 L MPV 11.6 Immature Gran % (Auto) 0.000 Neut % (Auto) 73.7 H Lymph % (Auto) 9.3 L Crisp % (Auto) 13.8 H Eos % (Auto) 3.0 Baso % (Auto) 0.2 Absolute Neuts (auto) 3.4 Absolute Lymphs (auto) 0.43 L Total Counted Not Reportable Sodium 139 Potassium 3.6 Chloride 103 Carbon Dioxide 28.0 Anion Gap 8 BUN 28 H Creatinine 1.33 H Estim Creat Clear Calc 53.48 Est GFR (MDRD) Af Amer 67 Est GFR (MDRD) Non-Af 56 L BUN/Creatinine Ratio 21.1 H Glucose 140 H Calcium 9.4 Troponin I 0.092 H Assessment/Plan All Active Problems (Last Reviewed 03/14/18 @ 09:28 by Cam Fong MD) Atrial fibrillation with RVR (Acute) Hypotensive episode (Acute) The patient is a 72 y/o M w/ PMHx: Diabetes mellitus type II, CKD stage III (baseline Cr 1.3-1.5), PAF/PAFlutter s/p prior Cardioversions, Hx PVT, Sick sinus syndrome s/p pacemaker placement, CAD s/p PTCA/Stent to RCA 06/27/2004, CABG x 2 with MCKENZIE to LAD and free MARGAUX to OM2 in June 2004,PTCA/Stent of the proximal LAD June 2007, HTN, HLD, Ischemic Cardiomyopathy, Chronic Systolic CHF, Anxiety and Depression who presents to the [facility] ED on 08/07/18 with history of onset at approximately 10 AM palpitations, sensation of racing heart with associated lightheadedness and severe fatigue and malaise with no associated chest discomfort or dyspnea prompting eventual presentation to the ED for evaluation. (1) Paroxsymal atrial fibrillation/flutter w/ RVR: Work-up in the ED initially T 96.9, heart rate 143, BP 83/62, respiratory rate 18, 98% on room air--> HR 140, with cardioversion, successful with rate following 71, BP 112/89, respiratory rate 16, 96% on 2 L, CBC with WBC 4.6, hemoglobin 12.2, platelet 135 with mild shift, BMP with BUN/Cr 28/1.33, glucose 140, trop 0.092, initial EKG with atrial fibrillation with RVR, follow-up EKG following cardioversion w/ successfully cardioverted, paced, CXR with mild pleural-parenchymal changes at the left lung base. Will admit to PCU to closely monitor and reassure no recurrent atrial fibrillation with RVR, maintain on telemetry, obtain cardiac enzyme serial set, obtain magnesium level, recent 03/29/18 ECHO w/ normal LV size, mild concentric LVH, EF 35%, moderate global left ventricular systolic dysfunction noted improvement from prior echo, obtain TSH level. We will continue patient metoprolol, Xarelto regimen. Cardiology consulted, pending. (2) CAD: s/p PTCA/Stent to RCA 06/27/2004, CABG x 2 with MCKENZIE to LAD and free MARGAUX to OM2 in June 2004,PTCA/Stent of the proximal LAD June 2007, maintain on Xarelto, statin, beta-jeffery, ELVA inhibitor. (3) Chronic Systolic CHF, Ischemic Cardiomyopathy: Will maintain on Xarelto, statin, beta-jeffery, ELVA inhibitor, recent 03/29/18 ECHO w/ normal LV size, mild concentric LVH, EF 35%, moderate global left ventricular systolic dysfunction noted improvement from prior echo. Does have recent BL LE edema, but denies weight gain, notes weight loss, place SNUG elva wraps. (4) History sick sinus syndrome: Status post pacemaker, interrogation pending. (5) Diabetes mellitus type II: Not on regimen, ADA diet, accu checks w/ ISS. (6) Hypertension: Continue home regimen including lisinopril, metoprolol with hold parameters given initially hypotensive but likely associated with RVR presentation, PRN hydralazine. (7) Hyperlipidemia: Continue home statin regimen. (8) Chronic Kidney Disease Stage III: Admission BUN/Cr 28/1.331, baseline renal function.3-1.5, stable, repeat BMP in AM. (9) Chronic Normocytic Anemia: Admission Hgb 12.2, encourage outpatient Fe panel, ferritin evaluation per PCP. (10) Anxiety and Depression: Continue home venlafaxine regimen. (11) BPH: Continue home Flomax regimen. (12) DVT prophylaxis: SCDs, Xarelto. (13) CODE status: Patient does not have healthcare power of [place] attorney or living will set up. Patient is present and discussed the importance of initiating this following his discharge and to discuss his preferences especially living will given specifics he noted with his children. Discussed CODE status at length including difference between FULL code, DNR-CCA and DNR-CC status. Following discussions about the differences in these status, Full Code status. Advanced Care Planning Face to Face Time: 16 minutes. Code Visit OBSV E&M: 93030 Initial observation care L3 Procedures: 09255 Advncd Care Plan 30 Min
--- NOTE | 2018-08-07 14:56 | NURSING ---
DR HERNANDEZ FOR DR LLAMAS
--- NOTE | 2018-08-07 15:00 | CM.ED ---
SOCIAL WORK INFORMANT: ADMISSION NURSE REASON FOR REFERRAL: PLACEMENT NEEDS FOR MET WITH PATIENT AND IN ROOM. INTRODUCED ROLE AND REASON FOR REFERRAL. PATIENT REPORTS HAS HAD SEVERAL PORTILLO AND IS UNABLE TO RETURN HOME ALONE. 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 PATIENT REPORTS HAS MEDICAID AND SERVICES THROUGH [employer]. PATIENT UNABLE TO RECALL NAME OF GUEST RELATIONS ASSOCIATE THROUGH [employer]. DISCUSSED SAFE PLAN FOR . PATIENT REPORTS DOES HAVE A FRIEND WHO WOULD BE ABLE TO ASSIST, BUT FRIEND IS CURRENTLY OUT OF TOWN. INQUIRED IF THIS WORKER COULD CALL CHILDREN TO DISCUSS SITUATION AND PLAN FOR . PATIENT DOES NOT WISH FOR CHILDREN TO BE CALLED AT THIS TIME. PATIENT REPORTS GUEST RELATIONS ASSOCIATE WAS JUST AT THE HOME AND THEY DISCUSSED RESPITE CARE IN A SITUATION LIKE THIS. NOT WANTING TO GO TO FACILITY. SUPPORT AND EDUCATION PROVIDED TO AND PATIENT. INFORMED PATIENT AND THIS WORKER WILL DISCUSS WITH [facility] [address] NEED FOR RESPITE CARE FOR . BOTH IN AGREEMENT WITH PLAN. CALL TO [facility] [place], SPOKE WITH PRAVEEN. HAS MEDICAID-[facility]. PRAVEEN UPDATED ON THE ABOVE AND STATES WILL REACH OUT TO [facility] IN REGARDS TO BED FOR FOR RESPITE CARE WHILE PATIENT IN HOSPITAL. PRAVEEN INQUIRING WHAT FACILITY PATIENT AND WANTING RESPITE. WILL DISCUSS WITH PATIENT AND AND CALL PRAVEEN BACK. PLAN: PATIENT TO BE ADMITTED, WORKING ON EMERGENCY RESPITE FOR . DARI CANTU, WATER TREATMENT TECHNICIAN, DIGITAL MARKETING ASSISTANT.
--- NOTE | 2018-08-07 15:03 | NURSING ---
DR HERNANDEZ IN ER
--- NOTE | 2018-08-07 15:03 | NURSING ---
PCU AFIB WITH RVR WHITE
--- NOTE | 2018-08-07 15:30 | CM.ED ---
SOCIAL WORK THIS WORKER ASSISTING PATIENT WITH EMERGENCY RESPITE FOR D/T ADMISSION TO PCU. CALL BACK TO THE [facility] ON [place], SPOKE WITH PRAVEEN AND UPDATED ON PATIENT AND 'S REQUEST FOR RES[facility]ITE AT THE [facility] OR [facility]. PRAVEEN ARZOLA WILL REACH OUT TO FACILITIES TO UPDATE ON SITUATION AND WILL CALL THIS WORKER BACK. NURSING STAFF UPDATED. THIS WORKER TO CONTINUE TO FOLLOW. DARI CANTU, CREDIT CLERK, SALES AGENT TRADING STAMPS.
[2018-08-07 15:59] LABS: Magnesium 2.3 mg/dL (1.6-2.6); Thyroid Stim Hormone (TSH) 4.25 uIU/mL (0.358-3.74)
--- NOTE | 2018-08-07 16:20 | CM.ED ---
SOCIAL WORK CALL TO PRAVEEN WITH THE [facility] FOR UPDATE ON STATUS OF EMERGENCY RESPITE FOR PATIENT'S . PRAVEEN ON THE PHONE. THIS WORKER TO CALL BACK. DARI CANTU, TUBE TURNER, RECONCILIATION ACCOUNTANT.
--- NOTE | 2018-08-07 16:30 | CM.ED ---
SOCIAL WORK CALL TO PRAVEEN WITH THE [facility]. PER PRAVEEN, HAS REACHED OUT TO FACILITIES AND HAS NOT HEARD BACK AT THIS TIME. PRAVEEN TO CALL THIS WORKER BACK. DARI CANTU, COURTROOM DEPUTY OR CALENDAR CLERK, BOWLING BALL WEIGHER AND PACKER.
--- NOTE | 2018-08-07 16:45 | CM.ED ---
SOCIAL WORK CALL TO DR. TAFOYA OFFICE. OFFICE TO FAX OVER MOST RECENT HISTORY AND PHYSICAL FROM 06/12/18. SPOKE WITH MARIEL AT THE [facility], UPDATED ON NEED FOR RESPITE CARE FOR PATIENT'S . MARIEL TO SPEAK WITH [email or web address] AND GET BACK TO THIS WORKER. DARI CANTU, WASTE PICKER, CLINICAL REHABILITATION LIAISON.
--- NOTE | 2018-08-07 17:15 | CM.ED ---
SOCIAL WORK HISTORY AND PHYSICAL FROM DR. TAFOYA OFFICE RECEIVED FOR PATIENT'S . CALL FROM MARIEL WITH THE [facility] WHO REPORTS ABLE TO ACCOMMODATE . WILL UPDATE NURSING, PATIENT AND . DARI CANTU, RESEARCH CHEMICAL ENGINEER, FIXTURE FABRICATOR REPAIRER.
[2018-08-07 17:20] LABS: Bedside Glucose 101 mg/dL (70-110)
--- NOTE | 2018-08-07 17:40 | CM.ED ---
SOCIAL WORK UPDATED BY CHARGE NURSE, DANIEL- DR. LAUREN TO BE IN TO SEE PATIENT. DISPOSITION PENDING. DANIEL TO CALL THIS WORKER ONCE DR. LAUREN HAS ASSESSED PATIENT. RESPITE FOR PATIENT'S HAS BEEN SET UP, IF NEEDED, AT THE AVENUE. THIS WORKER TO CONTINUE TO FOLLOW. DARI CANTU, DOCTOR CHIROPRACTIC, LEAD TANK MECHANIC.
[2018-08-07 17:52] LABS: T4 Free Direct 1.39 ng/dL (0.76-1.46)
--- NOTE | 2018-08-07 18:19 | CON.PCM_ITS ---
Reason for Consult Date of Consultation: 08/07/18 Reason for Consultation: Palpitations. History of Present Illness: The patient is a 72 year old M with a history of coronary artery disease status post coronary artery bypass surgery in 2004 with a left internal mammary artery to the left anterior descending artery, free right internal mammary artery to the obtuse marginal branch, and previous angioplasty and stenting of the right coronary artery in June 2004 and angioplasty of the left anterior descending artery in June 2007. He also has a history of ischemic cardia myopathy with an estimated ejection fraction of 30%, paroxysmal atrial fibrillation status post cardioversion December 2016 in June 2017. He also has a history of hypertension as well as permanent pacemaker implantation. He had been doing well at home until today when he called saying that he was having palpitations and checked his blood pressure and it was noted to be 70 systolic. He was sent from our office to the emergency room where he was noted to be in a wide-complex tachycardia with a rate of approximately 141 bpm. It appeared to be consistent with an atrial flutter after discussion with the ER physician he was DC cardioverted and currently is doing well with what appears to be an AV dual paced rhythm. He denied any chest pain or paroxysmal nocturnal dyspnea. [] Past Medical History Allergies/Adverse Reactions: Allergies Penicillins Adverse Reaction (Mild, Verified 03/14/18 08:51) Upset Stomach SEASONAL Allergy (Mild, Uncoded 01/22/18 19:24) Other Home Medications: Ambulatory Orders Medication Instructions Recorded Amiodarone HCl 200 mg PO DAILY 08/07/18 Furosemide 20 mg PO DAILY 08/07/18 Gabapentin [Neurontin] 300 mg PO BID 08/07/18 Latanoprost 0.005% [Xalatan 1 drp EACH EYE QHS 08/07/18 Opthalmic] Lisinopril 5 mg PO QHS 08/07/18 Metoprolol Tartrate [Lopressor] 100 mg PO DAILY 08/07/18 Prednisolone Acetate [Pred Forte] 1 drp EACH EYE QHS 08/07/18 Rivaroxaban [Xarelto] 20 mg PO DAILY 08/07/18 Rosuvastatin Calcium [Crestor] 40 mg PO QHS 08/07/18 Tamsulosin HCl [Flomax] 0.4 mg PO DAILY 08/07/18 Venlafaxine HCl [Venlafaxine HCl 150 mg PO DAILY 08/07/18 ER] metFORMIN (XR) [Glucophage Xr] 500 mg PO BID 08/07/18 Past Medical History (Chronic Problems): Chronic Problems (Last Reviewed 03/14/18 @ 09:28 by Cam Fong MD) Paroxysmal atrial fibrillation (Chronic) DCCV 12/2016 and June 2017; Nonrheumatic mitral (valve) insufficiency (Chronic) Paroxysmal ventricular tachycardia (Chronic) Atrial flutter (Chronic) Presence of cardiac pacemaker (Chronic ~08/19/12) Sick sinus syndrome (Chronic) S/P PPM November 2005; H/O coronary artery bypass surgery (Chronic ~06/28/04) MCKENZIE-LAD, Free MARGAUX-OM2 History of coronary artery stent placement (Chronic) Stent - RCA 06/2004 Stent-LAD 06/2007 Atherosclerosis of coronary artery bypass graft without angina pectoris (Chronic) Ischemic cardiomyopathy (Chronic) Hyperlipidemia (Chronic) Hypertension (Chronic) Atherosclerosis of coronary artery of [place] heart without angina pectoris (Chronic) PTCA/Stent to RCA 06/27/2004; CABG with MCKENZIE to LAD and free MARGAUX to OM2 in June 2004; PTCA/Stent of the proximal LAD June 2007; Chronic systolic (congestive) heart failure (Chronic) Surgical History: coronary bypass surgery, - - CABG x2, PCI, right hip replaceme nt, pacemaker placement, bilateral total knee replacement. Psychiatric History: Anxiety, Depression - *Family History Maternal Family History: Family History (Last Reviewed 03/14/18 @ 09:28 by Cam Fong MD) Mother CVA (cerebral vascular accident) Hypertension Sister Hypertension Daughter Brain aneurysm History Items: - - Patient notes a maternal family history of hypertension. Paternal Family History: Family History (Last Reviewed 03/14/18 @ 09:28 by Cam Fong MD) Mother CVA (cerebral vascular accident) Hypertension Sister Hypertension Daughter Brain aneurysm History Items: - - Patient notes a paternal family history of coronary disease, heart disease, passed from ID. 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 Drugs: None Review of Systems - Review of Systems General: Reports: Fatigue. Denies: Fever, Night Sweats HEENT: Denies: Vision Change Cardiovascular: Reports: Palpitations. Denies: Chest Discomfort, Shortness of Breath, Orthopnea, PND, Peripheral Edema, Lightheadedness, Dizziness, Near Syncope, Syncope Respiratory: Denies: Cough, Sputum Production, Hemoptysis Gastrointestinal: Denies: Indigestion, Hematemesis, Hematochezia, Melena Genitourinary: Denies: Dysuria, Hematuria Muscoloskeletal: Denies: Myalgias Skin: Denies: Rash Neurological: Reports: Dizziness Psychiatric: Denies: Anxiety Hematologic/ Lymphatic: Denies: Anemia Subjectve: Pleasant gentleman in no distress at this time Objective: Vital Signs Temp Pulse Resp BP Pulse Ox 98.4 F 70 16 121/77 H 100 08/07/18 15:27 08/07/18 15:51 08/07/18 15:27 08/07/18 15:27 08/07/18 15:27 Oxygen Flow Rate (L/min) [1 ( 2 Initial Baseline)] Oxygen Flow Rate (L/min) 6 Oxygen Delivery Method [1 ( Nasal Cannula Initial Baseline)] Oxygen Delivery Method Nasal Cannula Weight: 195 lb 1.745 oz Body Mass Index (BMI) 26.4 Finger Stick Blood Glucose 309 General: Awake, Alert, Oriented x 3 HEENT: PERRL, EOMI, Sclera Non Icteric Neck: Supple, Good ROM, No Lymph Node Enlargement Lungs: Clear to auscultation Cardiovascular: Regular Rhythm, Normal S1, Normal S2, No Murmurs, No Rubs, No Gallops Vascular: No Carotid Bruits, Normal Femoral Pulses, Normal Radial Pulses, Normal Dorsalis Pedal Pulse, Normal Posterior Tibial Pulses Abdomen: Bowel Sounds Present, Soft, Non Tender, No HSM, No Organomegaly Extremities: No Cyanosis, No Clubbing, No edema Musculoskeletal: No Erythema Skin: No Rashes Lymphatic: No Lymph Node Enlargement Neurological: No Focal Motor or Sensory Deficit 08/07/18 13:20: WBC 4.6, RBC 4.02 L, Hgb 12.2 L, Hct 38.7 L, MCV 96.3 H, MCH 30.3, MCHC 31.5 L, RDW 16.5 H, RDW Differential 57.8 H, Plt Count 135 L, MPV 11.6, Immature Gran % (Auto) 0.000, Neut % (Auto) 73.7 H, Lymph % (Auto) 9.3 L, Cook % (Auto) 13.8 H, Eos % (Auto) 3.0, Baso % (Auto) 0.2, Absolute Neuts (auto) 3.4, Total Counted Not Reportable 08/07/18 13:20: Sodium 139, Potassium 3.6, Chloride 103, Carbon Dioxide 28.0, Anion Gap 8, BUN 28 H, Creatinine 1.33 H, Est GFR (MDRD) Af Amer 67, Est GFR (MDRD) Non-Af 56 L, BUN/Creatinine Ratio 21.1 H, Glucose 140 H, Calcium 9.4, Troponin I 0.092 H 08/07/18 13:20: Magnesium 2.3 08/07/18 16:02: Troponin I 0.130 H Rhythm: EKG: ECHO: Stress Test: Cardiac Cath: PCI: CT Surgery: Holter monitor: EPS: PPM: CXR: Chest CT Scan: Assessment/Plan 1. Wide-complex tachycardia. Patient presents with a symptomatic wide-complex tachycardia. He previously has a history of atrial fibrillation and it appears that this is consistent with the same. He underwent DC cardioversion. He is therapeutically anticoagulated and is on a beta-jeffery as well as amiodarone. I would recommend that we give him an extra loading dose of IV amiodarone. He does have significant social issues and at some point he may be a candidate for AV fawad ablation. At this time however we will try and control the above rhythm. I would also suggest that we increase his metoprolol to 100 mg twice a day 2. Coronary artery disease * He is status post coronary artery bypass surgery I do not get indication that there is any evidence of angina. He does have mild troponin elevation but I suspect the above is secondary to his atrial tachyarrhythmia. No further changes will be made. * 3. Hypertension * He does have a previous history of hypertension and will continue his current medications for appropriate blood pressure control. * 4. Cardiomyopathy * He does have evidence of previous cardiomyopathy with an estimated ejection fraction per recent echocardiogram of approximately 35%. He has not had any heart failure symptoms. We will continue him on the same medications. * 5. Status post pacemaker * His pacemaker was last interrogated in February of this year. It will be interrogated again in a.m. to make sure that this is not ventricular tachycardia. After medicated the above with the pacemaker nurse. In the meantime his electrolytes should be kept within the normal ranges with potassium over 4 and magnesium close to 2. * * Thank you for allowing me to participate in the care of your patient. Please don't hesitate to call if any issues arise
--- NOTE | 2018-08-07 18:25 | CM.ED ---
SOCIAL WORK UPDATED BY CHARGE NURSE, PATIENT TO REMAIN IN OBSERVATION OVERNIGHT. NURSE TO SET UP TRANSPORT FOR TO THE AVENUE. CALL TO MARIEL WITH THE [facility]EN[facility] TO UPDATE ON PLAN FOR TRANSPORT WITHIN THE HOUR. DARI CANTU, SEED POTATO ARRANGER, NUCLEAR CONTROL ROOM OPERATOR.
[2018-08-07] MEDS: Lisinopril 5 MG Tablet PO (22:18)
[2018-08-07] MEDS: Latanoprost 0.005% 1 Bottle 1 DRP EACH EYE (22:18)
[2018-08-07] MEDS: Metoprolol Tartrate 100 MG Tablet PO (22:19)
[2018-08-07] MEDS: prednisoLONE eye drops (1 mL) 1 DROP OPTH.BTL 1 DRP OP (22:19)
[2018-08-07] MEDS: Atorvastatin Calcium 80 MG Tablet PO (22:19)
[2018-08-07 23:41] LABS: Bedside Glucose 100 mg/dL (70-110)
[2018-08-08 02:54] VITALS: PULSE 60
[2018-08-08 03:30] VITALS: BP 142/83; PULSE 56; RESP 18; TEMP 36.8; O2SAT 97
--- NOTE | 2018-08-08 05:55 | EKG12_ITS ---
Test Reason : PALPATIONS Blood Pressure : / mmHG Vent. Rate : 141 BPM Atrial Rate : 141 BPM P-R Int : 000 ms QRS Dur : 164 ms QT Int : 424 ms P-R-T Axes : 000 -68 119 degrees QTc Int : 649 ms Ventricular-paced rhythm Abnormal ECG Possible SVT with paced Ventricular Response Confirmed by KATJA SHAIKH ([id number]), order editor PEGGY FRANCOIS ([id number]) on 08/12/2018 10:05:46 AM Referred By: Dariana Valentin Confirmed By:KATJA SHAIKH
[2018-08-08 06:22] LABS: Anion Gap 9 (5-15); BUN 25 mg/dL (7-18); BUN/Creat Ratio 20.7 RATIO (10-20); Calcium,Total 8.5 mg/dL (8.5-10.1); Chloride 106 mmol/L (98-107); Creatinine, Serum 1.21 mg/dL (0.70-1.30); EST Glomerular Filtration Rate 62 mL/min (>60); Est Glom Filt Rate - Afr Amer 75 mL/min (>60); Estimated Creatinine Clearance 58.79 ml/min; Glucose 85 mg/dL (74-106); Potassium 3.3 mmol/L (3.5-5.1); Sodium Level 140 mmol/L (136-145)
[2018-08-08 07:00] VITALS: PULSE 55
[2018-08-08 07:10] LABS: Bedside Glucose 78 mg/dL (70-110)
[2018-08-08 07:40] VITALS: O2SAT 94
[2018-08-08 09:04] VITALS: BP 130/79; PULSE 58; PULSE 60; RESP 14; TEMP 37.1; O2SAT 94
[2018-08-08] MEDS: Metoprolol Tartrate 100 MG Tablet PO (09:04)
[2018-08-08] MEDS: Venlafaxine XR 150 MG Capsule PO (09:04)
[2018-08-08] MEDS: Tamsulosin HCl 0.4 MG Capsule PO (09:04)
[2018-08-08] MEDS: Amiodarone 200 MG Tablet PO (09:05)
--- NOTE | 2018-08-08 09:15 | PN.CARD_ITS ---
Subjectve: Patient seen and evaluated. Appears to be doing well. Did well overnight. Objective: Vital Signs Temp Pulse Resp BP Pulse Ox 98.7 F 60 14 130/79 H 94 08/08/18 09:04 08/08/18 09:04 08/08/18 09:04 08/08/18 09:04 08/08/18 09:04 Oxygen Flow Rate (L/min) [1 ( 2 Initial Baseline)] Oxygen Flow Rate (L/min) 6 Oxygen Delivery Method [1 ( Nasal Cannula Initial Baseline)] Oxygen Delivery Method Room Air Weight: 195 lb 1.745 oz Body Mass Index (BMI) 26.4 Finger Stick Blood Glucose 309 Intake and Output for Last 24 Hours 08/06/18 08/07/18 08/08/18 23:59 23:59 23:59 Intake Total 562 / 562 Balance 562 / 562 General: Awake, Alert, Oriented x 3 HEENT: PERRL, EOMI, Sclera Non Icteric Neck: Supple, Good ROM, No Lymph Node Enlargement Lungs: Clear to auscultation Cardiovascular: Regular Rhythm, Normal S1, Normal S2, No Murmurs, No Rubs, No Gallops Vascular: No Carotid Bruits, Normal Femoral Pulses, Normal Radial Pulses, Normal Dorsalis Pedal Pulse, Normal Posterior Tibial Pulses Abdomen: Bowel Sounds Present, Soft, Non Tender, No HSM, No Organomegaly Extremities: No Cyanosis, No Clubbing, No edema Musculoskeletal: No Erythema Skin: No Rashes Lymphatic: No Lymph Node Enlargement Neurological: No Focal Motor or Sensory Deficit Psych/Mental Status: Appropriate 08/07/18 13:20: WBC 4.6, RBC 4.02 L, Hgb 12.2 L, Hct 38.7 L, MCV 96.3 H, MCH 30.3, MCHC 31.5 L, RDW 16.5 H, RDW Differential 57.8 H, Plt Count 135 L, MPV 11.6, Immature Gran % (Auto) 0.000, Neut % (Auto) 73.7 H, Lymph % (Auto) 9.3 L, [place]rus % (Auto) 13.8 H, Eos % (Auto) 3.0, Baso % (Auto) 0.2, Absolute Neuts (auto) 3.4, Total Counted Not Reportable 08/07/18 13:20: Sodium 139, Potassium 3.6, Chloride 103, Carbon Dioxide 28.0, Anion Gap 8, BUN 28 H, Creatinine 1.33 H, Est GFR (MDRD) Af Amer 67, Est GFR (MDRD) Non-Af 56 L, BUN/Creatinine Ratio 21.1 H, Glucose 140 H, Calcium 9.4, Troponin I 0.092 H 08/07/18 13:20: Magnesium 2.3 08/07/18 16:02: Troponin I 0.130 H 08/07/18 19:50: Troponin I 0.228 H 08/08/18 05:40: Sodium 140, Potassium 3.3 L, Chloride 106, Carbon Dioxide 25.0, Anion Gap 9, BUN 25 H, Creatinine 1.21, Est GFR (MDRD) Af Amer 75, Est GFR (MDRD) Non-Af 62, BUN/Creatinine Ratio 20.7 H, Glucose 85, Calcium 8.5 Rhythm: EKG: ECHO: Stress Test: Cardiac Cath: PCI: CT Surgery: Holter monitor: EPS: PPM: CXR: Chest CT Scan: Medical Necessity - Tobacco Use Smoking Status: Never smoker Tobacco Use: Non-smoker Assessment/Plan 1. Wide-complex tachycardia. Patient presents with a symptomatic wide-complex tachycardia. He previously has a history of atrial fibrillation and it appears that this is consistent with the same. He underwent DC cardioversion. He is therapeutically anticoagulated and is on a beta-jeffery as well as amiodarone. I would recommend that we give him an extra loading dose of IV amiodarone. He does have significant social issues and at some point he may be a candidate for AV fawad ablation. At this time however we will try and control the above rhythm. I would also suggest that we increase his metoprolol to 100 mg twice a day 2. Coronary artery disease * He is status post coronary artery bypass surgery I do not get indication that there is any evidence of angina. He does have mild troponin elevation but I suspect the above is secondary to his atrial tachyarrhythmia. No further changes will be made. * 3. Hypertension * He does have a previous history of hypertension and will continue his current medications for appropriate blood pressure control. * 4. Cardiomyopathy * He does have evidence of previous cardiomyopathy with an estimated ejection fraction per recent echocardiogram of approximately 35%. He has not had any heart failure symptoms. We will continue him on the same medications. * 5. Status post pacemaker * His pacemaker was last interrogated in February of this year. It will be interrogated again in a.m. to make sure that this is not ventricular tachycardia. After medicated the above with the pacemaker nurse. In the meantime his electrolytes should be kept within the normal ranges with potassium over 4 and magnesium close to 2. * Device was interrogated this morning and it demonstrates normally functioning permanent pacemaker. * * From my standpoint the patient can be discharged. * Thank you for allowing me to participate in the care of your patient. Please don't hesitate to call if any issues arise
--- NOTE | 2018-08-08 10:52 | PCM.DC ---
- Discharge Diagnoses Current Active Problems: Current Active and Chronic Problems (Last Reviewed 03/14/18 @ 09:28 by Cam Fong MD) Atrial fibrillation with RVR (Acute) Hypotensive episode (Acute) You will use the following diet at home:: Cardiac Discharge Activity: Return to Normal Activity Call your doctor if you observe: Shortness of breath, Dizziness, Fainting spells, Chest pain, Increased palpitations (irregular heartbeat) Allergies/Adverse Reactions: Allergies Penicillins Adverse Reaction (Mild, Verified 03/14/18 08:51) Upset Stomach SEASONAL Allergy (Mild, Uncoded 01/22/18 19:24) Other Medications to take at Discharge Amiodarone HCl 200 mg PO DAILY 08/07/18 Furosemide 20 mg PO DAILY 08/07/18 Gabapentin [Neurontin] 300 mg PO BID 08/07/18 Latanoprost 0.005% [Xalatan Opthalmic] 1 drp EACH EYE QHS 08/07/18 Lisinopril 5 mg PO QHS 08/07/18 Prednisolone Acetate [Pred Forte] 1 drp EACH EYE QHS 08/07/18 Rivaroxaban [Xarelto] 20 mg PO DAILY 08/07/18 Rosuvastatin Calcium [Crestor] 40 mg PO QHS 08/07/18 Tamsulosin HCl [Flomax] 0.4 mg PO DAILY 08/07/18 Venlafaxine HCl [Venlafaxine HCl ER] 150 mg PO DAILY 08/07/18 metFORMIN (XR) [Glucophage Xr] 500 mg PO BID 08/07/18 Metoprolol Tartrate [Lopressor (beta jeffery)] 100 mg PO BID #60 tab 08/08/18 The following prescriptions were given: Metoprolol Tartrate [Lopressor (beta jeffery)] 100 mg PO BID #60 tab Transmission Status: Pending to [facility]/pharmacy #[id number] Primary Care Physician: Josemanuel Riley MD [Primary Care Provider] - Please follow up with your Primary Care Physician in: 1 Week Test Results: Test results from this visit will be discussed in further detail at your follow-up appointment, if applicable. Please Follow Up With: Cam Fong MD - May see [employer] TE[employer]/PA When: 1-2 Weeks Proposed Discharge Date: 08/08/18
--- NOTE | 2018-08-08 10:59 | DS.PCM_ITS ---
<Lulu Lindo - Last Filed: 08/08/18 11:16> Discharge Date and Diagnosis Date of Admission: 08/07/18 Date of Discharge: 08/08/18 - Primary Discharge Diagnosis Active and Suspected Problems (Last Reviewed 03/14/18 @ 09:28 by Cam Fong MD) 1. Paroxysmal atrial fibrillation/flutter with RVR/wide-complex tachycardia 2. CAD status post PTCA/stent and CABG x2 (2004) 3. Chronic systolic CHF, ischemic cardiomyopathy 4. History of sick sinus syndrome status post pacemaker 5. Type 2 diabetes mellitus 6. Hypertension 7. Hyperlipidemia 8. Chronic kidney disease stage III 9. Chronic normocytic anemia 10. Anxiety and depression 11. BPH - Secondary Discharge Diagnosis Chronic Problems (Last Reviewed 03/14/18 @ 09:28 by Cam Fong MD) Paroxysmal atrial fibrillation (Chronic) DCCV 12/2016 and June 2017; Nonrheumatic mitral (valve) insufficiency (Chronic) Paroxysmal ventricular tachycardia (Chronic) Atrial flutter (Chronic) Presence of cardiac pacemaker (Chronic ~08/19/12) Sick sinus syndrome (Chronic) S/P PPM November 2005; H/O coronary artery bypass surgery (Chronic ~06/28/04) MCKENZIE-LAD, Free MARGAUX-OM2 History of coronary artery stent placement (Chronic) Stent - RCA 06/2004 Stent-LAD 06/2007 Atherosclerosis of coronary artery bypass graft without angina pectoris (Chronic) Ischemic cardiomyopathy (Chronic) Hyperlipidemia (Chronic) Hypertension (Chronic) Atherosclerosis of coronary artery of [place] heart without angina pectoris (Chronic) PTCA/Stent to RCA 06/27/2004; CABG with MCKENZIE to LAD and free MARGAUX to OM2 in June 2004; PTCA/Stent of the proximal LAD June 2007; Chronic systolic (congestive) heart failure (Chronic) Hospital Course and Treatment Imaging Results: Diagnostic Data Chest X-Ray 08/07/18 13:16 IMPRESSION: Mild pleural parenchymal changes at the left lung base. Electronically Signed: Andre Pena, at 14:03 EDT , Service support , Dr. Fong- Cardiology Operations: None Procedures: None Summary of Care Provided: The patient is a 72 year old M admitted 08/07/2018 due to chest pain, lightheadedness, dizziness, hypotension. 1. Paroxysmal atrial fibrillation/flutter with RVR/wide-complex tachycardia- Follows with Dr. Fong, consulted during admission. Initial EKG in ED with atrial fibrillation with RVR, patient was successfully cardioverted. Has remained AV paced. Pacemaker interrogation completed and demonstrated normally functioning permanent pacemaker. Patient's metoprolol regimen increased to 100 mg twice daily. Continue amiodarone, Xarelto regimen. Follow-up with cardiology in 1 to 2 weeks. 2. CAD status post PTCA/stent and CABG x2 (2004)-patient has a history of stent to RCA June 2004, CABG x2 with mckenzie to LAD and free MARGAUX to OM 2 in June 2004, stent of proximal LAD June 2007. Continue Xarelto, statin, beta-jeffery, ELVA inhibitor. 3. Chronic systolic CHF, ischemic cardiomyopathy-no acute exacerbation. Echo March 2017 with EF 35%, moderate global left ventricular systolic dysfunction improved from prior echo. Continue Xarelto, statin, beta-jeffery, ELVA inhibitor. 4. History of sick sinus syndrome status post pacemaker-pacemaker interrogated as noted above. 5. Type 2 diabetes mellitus-continue metformin regimen. 6. Hypertension-stable, continue lisinopril regimen. Metoprolol increased as noted above. 7. Hyperlipidemia-continue statin. 8. Chronic kidney disease stage III-stable. 9. Chronic normocytic anemia-hemoglobin mildly decreased. Recommend outpatient iron, ferritin lab. 10. Anxiety and depression-continue home venlafaxine regimen. 11. BPH-continue Flomax regimen. Patient seen and examined prior to discharge. Physical assessment as noted below. Patient is stable for discharge with follow up recommendations as noted above. This patient was seen by NAWAF Cloud under the supervision of Dr. Romo. - Physical Exam General: Alert, Oriented x3, Cooperative HEENT: Atraumatic, PERRLA, EOMI, Normocephalic Neck: Supple, No JVD, Negative Carotid Bruits Lungs: Clear to auscultation, Normal air movement Cardiovascular: Regular rate, Regular Rhythm, Normal S1, Normal S2, No murmurs, - - AV paced. Abdomen: Bowel Sounds Present, Soft, Non Tender, Non-Distended Extremities: No clubbing, No cyanosis, No edema, Capillary Refill Less than 3 Seconds Skin: No rashes, No breakdown Musculoskeletal: No Tenderness to Palpation of Joints or Extremities Neurological: Cranial nerves II-XII grossly intact, Neuro grossly intact Psych/Mental Status: Normal Affect, Appropriate Vital Signs Temp Pulse Resp BP Pulse Ox 98.7 F 60 14 130/79 H 94 08/08/18 09:04 08/08/18 09:04 08/08/18 09:04 08/08/18 09:04 08/08/18 09:04 Oxygen Flow Rate (L/min) [1 ( 2 Initial Baseline)] Oxygen Flow Rate (L/min) 6 Oxygen Delivery Method [1 ( Nasal Cannula Initial Baseline)] Oxygen Delivery Method Room Air Weight: 195 lb 1.745 oz Body Mass Index (BMI) 26.4 Finger Stick Blood Glucose 309 Intake and Output for Last 24 Hours 08/06/18 08/07/18 08/08/18 23:59 23:59 23:59 Intake Total 562 / 562 Balance 562 / 562 Laboratory Tests Past 24 Hrs 08/07/18 08/07/18 08/07/18 13:20 13:20 13:20 WBC 4.6 RBC 4.02 L Hgb 12.2 L Hct 38.7 L MCV 96.3 H MCH 30.3 MCHC 31.5 L RDW 16.5 H RDW Differential 57.8 H Plt Count 135 L MPV 11.6 Immature Gran % (Auto) 0.000 Neut % (Auto) 73.7 H Lymph % (Auto) 9.3 L [place] % (Auto) 13.8 H Eos % (Auto) 3.0 Baso % (Auto) 0.2 Absolute Neuts (auto) 3.4 Absolute Lymphs (auto) 0.43 L Total Counted Not Reportable Sodium 139 Potassium 3.6 Chloride 103 Carbon Dioxide 28.0 Anion Gap 8 BUN 28 H Creatinine 1.33 H Estim Creat Clear Calc 53.48 Est GFR (MDRD) Af Amer 67 Est GFR (MDRD) Non-Af 56 L BUN/Creatinine Ratio 21.1 H Glucose 140 H Calcium 9.4 Magnesium 2.3 Troponin I 0.092 H TSH 4.25 H Free T4 08/07/18 08/07/18 08/07/18 16:02 16:02 19:50 WBC RBC Hgb Hct MCV MCH MCHC RDW RDW Differential Plt Count MPV Immature Gran % (Auto) Neut % (Auto) Lymph % (Auto) [place] % (Auto) Eos % (Auto) Baso % (Auto) Absolute Neuts (auto) Absolute Lymphs (auto) Total Counted Sodium Potassium Chloride Carbon Dioxide Anion Gap BUN Creatinine Estim Creat Clear Calc Est GFR (MDRD) Af Amer Est GFR (MDRD) Non-Af BUN/Creatinine Ratio Glucose Calcium Magnesium Troponin I 0.130 H 0.228 H TSH Free T4 1.39 08/08/18 05:40 WBC RBC Hgb Hct MCV MCH MCHC RDW RDW Differential Plt Count MPV Immature Gran % (Auto) Neut % (Auto) Lymph % (Auto) [place] % (Auto) Eos % (Auto) Baso % (Auto) Absolute Neuts (auto) Absolute Lymphs (auto) Total Counted Sodium 140 Potassium 3.3 L Chloride 106 Carbon Dioxide 25.0 Anion Gap 9 BUN 25 H Creatinine 1.21 Estim Creat Clear Calc 58.79 Est GFR (MDRD) Af Amer 75 Est GFR (MDRD) Non-Af 62 BUN/Creatinine Ratio 20.7 H Glucose 85 Calcium 8.5 Magnesium Troponin I TSH Free T4 POC Glucose 08/08/18 08/07/18 08/07/18 07:00 22:15 17:08 POC Glucose 78 100 101 Discharge Diet: Low fat/ Low Cholesterol Discharge Activity: Return to Normal Activity Call your doctor if you observe: Shortness of breath, Dizziness, Fainting spells, Chest pain, Increased palpitations (irregular heartbeat) Home Medications: Medications to take at Discharge Amiodarone HCl 200 mg PO DAILY 08/07/18 Furosemide 20 mg PO DAILY 08/07/18 Gabapentin [Neurontin] 300 mg PO BID 08/07/18 Latanoprost 0.005% [Xalatan Opthalmic] 1 drp EACH EYE QHS 08/07/18 Lisinopril 5 mg PO QHS 08/07/18 Prednisolone Acetate [Pred Forte] 1 drp EACH EYE QHS 08/07/18 Rivaroxaban [Xarelto] 20 mg PO DAILY 08/07/18 Rosuvastatin Calcium [Crestor] 40 mg PO QHS 08/07/18 Tamsulosin HCl [Flomax] 0.4 mg PO DAILY 08/07/18 Venlafaxine HCl [Venlafaxine HCl ER] 150 mg PO DAILY 08/07/18 metFORMIN (XR) [Glucophage Xr] 500 mg PO BID 08/07/18 Metoprolol Tartrate [Lopressor (beta jeffery)] 100 mg PO BID #60 tab 08/08/18 Following Prescrptions Were Given to Patient: Metoprolol Tartrate [Lopressor (beta jeffery)] 100 mg PO BID #60 tab Transmission Status: Received by [id number] Primary Care Physician: Josemanuel Riley MD [Primary Care Provider] - Please follow up with your Primary Care Physician in: 1 Week Please Follow Up With: Cam Fong MD - May see LOOM BLOWER/PA When: 1-2 Weeks Disposition: Home Minutes spent on discharge:: 35 Patient Condition:: Stable Medical Necessity - Tobacco Use Smoking Status: Never smoker Tobacco Use: Non-smoker Meaningful Use Info Meaningful Use Diagnoses (Choose all that apply): None applicable <[email or web address] - Last Filed: 08/08/18 17:18> Discharge Date and Diagnosis - Secondary Discharge Diagnosis Chronic Problems (Last Reviewed 03/14/18 @ 09:28 by Cam Fong MD) Paroxysmal atrial fibrillation (Chronic) DCCV 12/2016 and June 2017; Nonrheumatic mitral (valve) insufficiency (Chronic) Paroxysmal ventricular tachycardia (Chronic) Atrial flutter (Chronic) Presence of cardiac pacemaker (Chronic ~08/19/12) Sick sinus syndrome (Chronic) S/P PPM November 2005; H/O coronary artery bypass surgery (Chronic ~06/28/04) MCKENZIE-LAD, Free MARGAUX-OM2 History of coronary artery stent placement (Chronic) Stent - RCA 06/2004 Stent-LAD 06/2007 Atherosclerosis of coronary artery bypass graft without angina pectoris (Chronic) Ischemic cardiomyopathy (Chronic) Hyperlipidemia (Chronic) Hypertension (Chronic) Atherosclerosis of coronary artery of [place] heart without angina pectoris (Chronic) PTCA/Stent to RCA 06/27/2004; CABG with MCKENZIE to LAD and free MARGAUX to OM2 in June 2004; PTCA/Stent of the proximal LAD June 2007; Chronic systolic (congestive) heart failure (Chronic) Hospital Course and Treatment Summary of Care Provided: This patient was seen in conjunction with Lulu STEVENS. I have independently interviewed and examined the patient and reviewed pertinent history, examination findings, laboratory and plan of management. I have reviewed the note and agree with the documented findings with the few additional points. In brief, patient is admitted for chest pain, palpitation, lightheadedness, dizziness and hypotension, systolic 70 at home secondary to wide-complex tachycardia. Patient was noted to have wide-complex tachycardia, probably aberrant from pacemaker heart rate 141/min. Patient was successfully cardioverted after it appeared consistent with atrial flutter/atrial fibrillation. Patient was seen by floor worker. Pacemaker interrogation was done. Found normally functioning pacemaker. Metoprolol increased to 200 mg twice daily. On amiodarone and Xarelto. Other active comorbidities include coronary artery status post stents and two- vessel CABG. Chronic systolic heart failure with ischemic cardiomyopathy, no acute exacerbation. Sick sinus syndrome status post pacemaker. Other comorbidities include [facility] at [facility], hypertension, dyslipidemia, chronic kidney disease stage III chronic normocytic anemia and BPH. Discharge medication reconciliation done. Discharge follow-up instructions completed. Discharge process discussed with the patient and all questions were answered to patient's satisfaction. Total time spent, exact 35 minutes on discharge meds reconciliation, examination, review of imaging and blood test and discussion with the patient on follow-up instructions. I have discussed my assessment with LOOM BLOWERLulu and orders have been reviewed. M [] Subjective: Patient had no acute event last night. Heart rate is controlled, 55 to 60/min, regular. Blood pressure is stable. - Physical Exam General: Alert, Oriented x3, Cooperative HEENT: Atraumatic, PERRLA, EOMI, Normocephalic Neck: Supple, No JVD, Negative Carotid Bruits Lungs: Clear to auscultation, Normal air movement Cardiovascular: Regular rate, Normal S1, Normal S2, No murmurs, - Abdomen: Bowel Sounds Present, Soft, Non Tender, Non-Distended Extremities: No cyanosis, No edema, Capillary Refill Less than 3 Seconds Skin: No rashes, No breakdown Musculoskeletal: No Tenderness to Palpation of Joints or Extremities, Arthritic Changes Neurological: Cranial nerves II-XII grossly intact Psych/Mental Status: Normal Affect, Appropriate Vital Signs Temp Pulse Resp BP Pulse Ox 98.7 F 60 14 130/79 H 94 08/08/18 09:04 08/08/18 09:04 08/08/18 09:04 08/08/18 09:04 08/08/18 09:04 Oxygen Flow Rate (L/min) [1 ( 2 Initial Baseline)] Oxygen Flow Rate (L/min) 6 Oxygen Delivery Method [1 ( Nasal Cannula Initial Baseline)] Oxygen Delivery Method Room Air Weight: 195 lb 1.745 oz Body Mass Index (BMI) 26.4 Finger Stick Blood Glucose 309 Intake and Output for Last 24 Hours 08/06/18 08/07/18 08/08/18 23:59 23:59 23:59 Intake Total 562 / 562 Balance 562 / 562 Laboratory Tests Past 24 Hrs 08/07/18 08/07/18 08/08/18 16:02 19:50 05:40 Sodium 140 Potassium 3.3 L Chloride 106 Carbon Dioxide 25.0 Anion Gap 9 BUN 25 H Creatinine 1.21 Estim Creat Clear Calc 58.79 Est GFR (MDRD) Af Amer 75 Est GFR (MDRD) Non-Af 62 BUN/Creatinine Ratio 20.7 H Glucose 85 Calcium 8.5 Troponin I 0.228 H Free T4 1.39 POC Glucose 08/08/18 08/08/18 08/07/18 11:16 07:00 22:15 POC Glucose 123 H 78 100 08/07/18 17:08 POC Glucose 101 Code Visit Inpatient E&M: 24001 Disch Hosp
[2018-08-08 11:25] LABS: Bedside Glucose 123 mg/dL (70-110)
--- NOTE | 2018-08-08 11:41 | PHA.DC.MC ---
Pharmacy Service has performed discharge medication reconciliation and counseling for this patient. The patient's discharge medication list was reviewed for discrepancies and discrepancies were resolved. The patient was counseled on the following discharge medications and changes in medications for homegoing were reviewed. 1. METOPROLOL TARTRATE: DOSE INCREASED The Reason for Use, instructions for use, and potential side effects were reviewed for all new medications. The patient's questions regarding all of their medications were answered. The patient was able to verbally demonstrate an understanding of their discharge medications. Home Medications Amiodarone HCl 200 mg PO DAILY 08/07/18 Furosemide 20 mg PO DAILY 08/07/18 Gabapentin [Neurontin] 300 mg PO BID 08/07/18 Latanoprost 0.005% [Xalatan Opthalmic] 1 drp EACH EYE QHS 08/07/18 Lisinopril 5 mg PO QHS 08/07/18 Prednisolone Acetate [Pred Forte] 1 drp EACH EYE QHS 08/07/18 Rivaroxaban [Xarelto] 20 mg PO DAILY 08/07/18 Rosuvastatin Calcium [Crestor] 40 mg PO QHS 08/07/18 Tamsulosin HCl [Flomax] 0.4 mg PO DAILY 08/07/18 Venlafaxine HCl [Venlafaxine HCl ER] 150 mg PO DAILY 08/07/18 metFORMIN (XR) [Glucophage Xr] 500 mg PO BID 08/07/18 Metoprolol Tartrate [Lopressor (beta jeffery)] 100 mg PO BID #60 tab 08/08/18
== END 2018-08-08 10:58 | disposition home or self-care (01) ==
LOC: ED 13:33 → PCU 15:13
PROVIDERS: Admitting Provider Family Medicine; Emergency Provider Emergency Medicine; Family Provider Internal Medicine; PCP Internal Medicine; Referring Provider Family Medicine; Visit Provider Internal Medicine
DX: I48.0 Paroxysmal atrial fibrillation (principal); I25.10 Atherosclerotic heart disease of native coronary artery without angina pectoris; I13.0 Hypertensive heart and chronic kidney disease with heart failure and stage 1 through stage 4 chronic kidney disease, or unspecified chronic kidney disease; I50.22 Chronic systolic (congestive) heart failure; E11.22 Type 2 diabetes mellitus with diabetic chronic kidney disease; N18.3 Chronic kidney disease, stage 3 (moderate); E78.5 Hyperlipidemia, unspecified; I25.2 Old myocardial infarction; N40.0 Benign prostatic hyperplasia without lower urinary tract symptoms; I48.92 Unspecified atrial flutter; G47.33 Obstructive sleep apnea (adult) (pediatric); E11.42 Type 2 diabetes mellitus with diabetic polyneuropathy; F41.9 Anxiety disorder, unspecified; F32.9 Major depressive disorder, single episode, unspecified; D64.9 Anemia, unspecified; Z79.899 Other long term (current) drug therapy; Z95.1 Presence of aortocoronary bypass graft; Z79.01 Long term (current) use of anticoagulants; Z79.84 Long term (current) use of oral hypoglycemic drugs; Z95.0 Presence of cardiac pacemaker
CPT/HCPCS: 36415; 71045; 80048; 82962; 83735; 84439; 84443; 84484; 85025; 92960; 93005; 96365; 96375; 97162; 97166; 99218; 99285; J7030; J7040; A4216; G0378

== ENCOUNTER → 2018-08-13 | Outpatient (CLI) | payer MEDICARE, OTHER, SELFPAY ==
[2018-08-13 15:27] VITALS: BMI 26.4
[2018-08-13 16:13] LABS: Absolute Lymphocyte Count 0.41 X10^3/ul (0.83-4.51); Absolute Neutrophil Count 2.4 X10^3/uL (2.0-7.7); Basophil# 0.01 X10^3/uL; Basophil% 0.3 % (0-1); Eosinophil# 0.11 X10^3/uL; Eosinophils% 3.2 % (0-5); Hemoglobin 11.8 g/dl (13.0-16.5); Lymphocyte # 0.41 X10^3/ul (4.0); Mean Corp Hgb Conc 31.1 g/gl (32-36); Mean Corpuscular Hgb 29.9 pg (27.0-32.0); Mean Corpuscular Volume 96.2 fL (80-94); Mean Platelet Vol. 12.2 fl (6.2-12.0); Monocyte# 0.47 X10^3/uL; Monocyte% 13.8 % (0-10); Neutrophil # 2.41 X10^3/uL (2.7-7.7); Neutrophil % 70.7 % (47-70); Platelet Count 115 K/mm3 (150-450); RBC Distribution Width CV 16.7 % (11.6-14.6); Red Blood Count 3.95 M/mm3 (4.6-6.2); White Blood Count 3.4 K/mm3 (4.4-11.0)
[2018-08-13 16:17] LABS: Differential Indicated SCAN CRITERIA MET; POSITIVE COUNT NO; POSITIVE DIFFERENTIAL YES; POSITIVE MORPHOLOGY NO
[2018-08-13 16:25] LABS: Anion Gap 7 (5-15); BUN 24 mg/dL (7-18); Chloride 108 mmol/L (98-107); Creatinine, Serum 1.26 mg/dL (0.70-1.30); EST Glomerular Filtration Rate 59 mL/min (>60); Est Glom Filt Rate - Afr Amer 72 mL/min (>60); Glucose 122 mg/dL (74-106); Potassium 3.8 mmol/L (3.5-5.1); Sodium Level 142 mmol/L (136-145)
[2018-08-13 16:55] LABS: Platelet Estimate SLT DEC (ADEQ)
[2018-08-13 16:56] LABS: Anisocytosis 1+; Differential Comment SCANNED
== END | disposition home or self-care (01) ==
LOC: LAB 15:36
PROVIDERS: Family Provider Internal Medicine; PCP Internal Medicine; Referring Provider Physician Assistant Medical; Visit Provider Physician Assistant Medical
DX: I48.91 Unspecified atrial fibrillation (principal)
CPT/HCPCS: 36415; 80048; 85025

== ENCOUNTER 2018-08-21 14:44 | Inpatient (IN) | payer MEDICARE, OTHER, SELFPAY ==
[2018-08-13 15:27] VITALS: BMI 26.4
[2018-08-21] VITALS (7 sets, daily range): BP systolic 127–145; BP diastolic 66–86; PULSE 61–106; RESP 15–22; TEMP 36.3–36.8; O2SAT 97–100; BMI 22.9; BMI 23.0; BMI 22.2; BMI 22.3
--- NOTE | 2018-08-21 15:00 | CM.ED ---
SOCIAL WORK INFORMANT: NURSE SUZANNE REASON FOR REFERRAL: PLACEMENT FOR PATIENT'S CASE DISCUSSED WITH NURSING. PATIENT AND KNOWN TO THIS WORKER FROM PREVIOUS VISIT IN JULY. MET WITH PATIENT AND IN ROOM. PER PATIENT, HE HAS ALREADY DISCUSSED NEED FOR PLACEMENT OF WITH [facility] APPEALS NURSE. PLAN IS FOR [place] [facility] [place]. CALL TO THE AVENUE, SPOKE WITH FRAN. PER MARIEL PETERS AWARE OF PLACEMENT AND EVERYTHING HAS BEEN ARRANGED. THIS WORKER TO ASSIST WITH TRANSPORTATION NEED. THIS WORKER DISCUSSED TRANSPORT WITH PATIENT AND . FRIEND AT [facility] AND STATES ABLE TO TRANSPORT PATIENT TO FACILITY IF [facility] CAN ASSIST WITH GETTING PATIENT IN AND OUT OF CAR. ALL IN AGREEMENT WITH PLAN. WANTING TO STAY WITH PATIENT FOR A WHILE IN ED BEFORE GOING TO THE AVENUE. MARIEL AT THE AVENUE AWARE AND REQUESTS THIS WORKER CALL THE AVENUE WHEN IS IN ROUTE TO FACILITY. NURSING STAFF UPDATED ON THE ABOVE. DARI CANTU, ELECTRICAL SIGN WIRER HELPER, LICENSE REGISTRATION EXAMINER.
--- NOTE | 2018-08-21 15:22 | CM.ED ---
SOCIAL WORK RECEIVED VOICEMAIL FROM [place] WITH [facility]. PER [facility], HOME HEALTH WAS TO OPEN PATIENT THIS DAY. IF HOME HEALTH NEEDED UPON D/C, [facility] ABLE TO ACCOMMODATE NEED. DARI CANTU, SECRETARY, INSTRUMENT ROOM TECHNICIAN
--- NOTE | 2018-08-21 15:24 | CT_ITS ---
STUDY: CT BRAIN WITHOUT CONTRAST REASON FOR EXAM: Male, 73 years old. Generalized weakness after falling. RADIATION DOSAGE (If Supplied By Facility): CTDIvol = ( 44.99 ) mGy, DLP = ( 796.11 ) mGycm TECHNIQUE: Transaxial CT imaging of the brain was performed without administration of intravenous contrast material. Individualized dose optimization techniques were used for this CT. COMPARISON: No relevant priors. FINDINGS: Normal soft tissue structures. Normal calvarium. Normal size ventricles and extra-axial spaces for the patient's age. Normal white matter tracts of the cerebral hemispheres. Normal basal ganglia and thalami. Normal brainstem. Normal cerebellum. There is no intracranial hemorrhage. There are no findings of an acute ischemic infarction. Circumferential mucosal thickening in the right maxillary sinus status post nasoantral window. CT/Brain/Head without Contrast IMPRESSION: Normal unenhanced CT scan of the brain. Circumferential mucosal thickening in the right maxillary sinus status post nasoantral window. Electronically Signed: Pauline Lyman MD at 17:12 EDT , Service support ,
--- NOTE | 2018-08-21 15:24 | EKG12_ITS ---
Test Reason : WEAKNESS Blood Pressure : / mmHG Vent. Rate : 065 BPM Atrial Rate : 065 BPM P-R Int : 320 ms QRS Dur : 132 ms QT Int : 488 ms P-R-T Axes : 065 011 219 degrees QTc Int : 507 ms Atrial-paced rhythm with prolonged AV conduction with occasional sinus complexes and Premature atrial complexes Non-specific intra-ventricular conduction block Inferior infarct , age undetermined T wave abnormality, consider anterolateral ischemia Abnormal ECG Confirmed by BEVERLEY ARITA, LISA ([id number]), editor map YAZMIN ISLAS ([id number]) on 08/26/2018 1:28:16 PM Referred By: CD Confirmed By:LISA LOWERY MD
--- NOTE | 2018-08-21 15:30 | RAD_ITS ---
STUDY: X-RAY CHEST REASON FOR EXAM: Male, 73 years old. Weakness TECHNIQUE: Single AP portable view of the chest. COMPARISON: Prior chest exam of August 07, 2018 FINDINGS: The lungs are clear and expanded. The previous atelectasis has resolved. Negative for pleural effusion. Normal size heart. Status post prior midline sternotomy. Right atrial and right ventricular pacemaker leads are in good position and unchanged from the prior exam. Normal visualized pulmonary arteries. There is atherosclerotic calcification of the aortic arch with tortuosity. Normal visualized thoracic spine. Normal visualized ribs, clavicles, and shoulders. There is no demonstrated abnormality of the visualized soft tissue structures of the upper abdomen. RAD/Chest 1 View (Portable) IMPRESSION: No acute cardiopulmonary findings. Negative for consolidation, focal atelectasis, cardiomegaly or pleural effusion. Prior atelectatic changes have resolved. Status post midline sternotomy. Right atrial and ventricular pacemaker leads are in good position and unchanged from prior exam. Electronically Signed: Pauline Lyman MD at 16:40 EDT , Service support ,
--- NOTE | 2018-08-21 15:56 | ED.DCSUM_ITS ---
History of Present Illness Chief Complaint: Weakness Narrative: Generalized weakness for several weeks. He has fallen multiple times sustaining an abrasion to his left forehead and injuring his coccyx. He has felt near syncopal. He stopped his Lasix and is still not feeling better. He complains of diffuse weakness, nothing lateralizing. No slurred speech or facial droop. No mental status change. Current severity is moderate. No relieving or exacerbating factors. Past Medical History - Allergies and Home Meds Allergies/Adverse Reactions: Allergies Penicillins Adverse Reaction (Mild, Verified 08/21/18 14:54) Upset Stomach SEASONAL Allergy (Mild, Uncoded 08/21/18 14:54) Other Primary Care Physician: Josemanuel Riley MD [Primary Care Provider] - Prior records reviewed: Yes Surgical History: coronary bypass surgery, - - CABG x2, PCI, right hip replacement, pacemaker placement, bilateral total knee replacement. Smoking Status: Never smoker - Family History Maternal Family History: Family History (Last Reviewed 03/14/18 @ 09:28 by Cam Fong MD) Mother CVA (cerebral vascular accident) Hypertension Sister Hypertension Daughter Brain aneurysm Family History: Reports: - - Patient notes a maternal family history of hypertension. Paternal Family History: Family History (Last Reviewed 03/14/18 @ 09:28 by Cam Fong MD) Mother CVA (cerebral vascular accident) Hypertension Sister Hypertension Daughter Brain aneurysm Family History: Reports: - - Patient notes a paternal family history of coronary disease, heart disease, passed from [place]. Review of Systems General: Reports: Malaise. Denies: Chills, Fever, Sweats Eyes: Denies: Visual changes - bilaterally, Diplopia ENT: Denies: Rhinorrhea, Sore throat Cardiovascular: Reports: - - syncope. Denies: Chest pain, Palpitations Respiratory: Reports: Dyspnea. Denies: Cough, Dyspnea on exertion Gastrointestinal: Denies: Abdominal pain, Nausea, Vomiting, Diarrhea, Melena, Hematochezia Genitourinary: Denies: Dysuria, Hematuria, Frequency Musculoskeletal: Denies: Back pain, Extremity Pain Skin: Denies: Rash, Wounds Neurological: Reports: Headache, Weakness. Denies: Numbness Psych: Denies: Anxiety Hematologic: Denies: Easy bruising, Easy bleeding Allergy: Denies: Swelling of the mouth Physical Exam Vital Signs/Narrative: Vital Signs Temp Pulse Resp BP Pulse Ox 08/21/18 14:45 97.4 F L 71 16 129/86 H 98 General: Well nourished, Cachectic, No Acute Distress Head: Normocephalic, Trauma - left forehead Eyes: Perrl, EOMI, Scleral icterus ENT: No rhinorrhea, Dry mucous membranes Neck: Supple, Nontender Cardiovascular: Regular rate, Regular rhythm, No murmurs Respiratory: No distress, CTA bilaterally, Chest nontender Abdomen: Soft, Nontender, Nondistended, Normal bowel sounds Back: Nontender, Normal Inspection Extremities: Nontender, No edema Skin: No rash, Pallor Neurological: Alert, Oriented x3, Cranial nerves II-XII grossly intact, Normal Strength, Normal Sensation Psychological: Normal affect, Normal Mood Diagnostic/Tx/Re-eval - Rhythm Strip Rate: 65 - Medical Decision Making Initial labs revealed a creatinine of almost 7 and a BUN of over 100. Liver enzymes are also elevated and lipase is 500. Troponin is elevated but his creatinine is markedly elevated so likely insignificant. He has no chest pain or shortness of breath and no ischemic findings on his EKG. CT brain is negative and hip films are negative. A CT abdomen/pelvis is negative for obvious renal pathology or obvious other abnormality. A Boykin catheter was placed and he had approximately 400 cc of urine that appeared concentrated but no evidence of significant urinary retention. Exact cause of his symptoms is unclear. I do feel he meets criteria for full admission and may require right upper quadrant imaging and possible MRCP. He is quite weak and unable to ambulate. His neurologic exam remains normal and he appears to be mentating well. Care time of 37 minutes was spent, reviewing imaging, discussing with radiologist, arranging admission. Speak with the hospitalist and documenting. Full serial examinations were performed. - Critical Care Time Critical care time (excluding procedures): 30-74 minutes ED Disposition - Plan for ED Patient: Disposition: Acute Care Hospital [facility] Diagnosis: Acute renal failure, Dehydration, Elevated liver enzymes Referrals: Josemanuel Riley MD [Primary Care Provider] -
[2018-08-21 16:01] LABS: Bacteria 0 SEEN /hpf (None Seen); Mucous, Urine 0 SEEN /hpf (<or=2+)
[2018-08-21 16:06] LABS: Color, Urine Yellow (Yellow); Glucose, Dipstick Normal (Normal); Ketone-Dipstick Negative (Negative); Leukocyte Esterase-Dipstick Negative /ul (Negative); Nitrite-Dipstick Negative (Negative); Occult Blood-Urine 150 /ul (Negative); Protein-Dipstick 100 mg/dl (Negative); Specific Gravity, Urine 1.015 (1.002-1.030); Urine Bilirubin Dipstick Negative (Negative); Urine Clarity Sl. Cloudy (Clear); Urine Urobilinogen 4 mg/dl (Normal)
[2018-08-21 16:14] LABS: Amorphous Sediment 1+ URATE; Red Blood Cells-Urine 10-25 SEEN /hpf (0-5); Squamous Epithelial Cells - UA 0-5 SEEN /hpf (0-5); Transitional Epithelial - Ur 0-5 SEEN /hpf (0-5); White Blood Cells 0-5 SEEN /hpf (0-5)
--- NOTE | 2018-08-21 17:05 | RAD_ITS ---
STUDY: X-RAY - PELVIS AND RIGHT HIP REASON FOR EXAM: Male, 73 years old. Pain in the right hip after falling. Prior history of hip replacement. TECHNIQUE: 3 views of the pelvis and hip. COMPARISON: None. FINDINGS: There is a non-specific bowel gas pattern. Normal visualized soft tissue structures. Normal bilateral iliac wings, sacroiliac joints and visualized sacrum. Normal bilateral superior and inferior pubic rami. Normal pubic symphysis. Normal bilateral ischial tuberosities. Status post total hip replacement. The standard femoral and tibial components remain located without disruption or periprosthetic fracture. RAD/HIP, UNI W/ Pelvis 2-3 Views IMPRESSION: Status post total hip arthroplasty with no acute bone, joint or hardware findings. Electronically Signed: Pauline Lyman MD at 17:23 EDT , Service support ,
[2018-08-21 17:19] LABS: Absolute Lymphocyte Count 0.57 X10^3/ul (0.83-4.51); Absolute Neutrophil Count 7.1 X10^3/uL (2.0-7.7); Eosinophil# 0.03 X10^3/uL; Eosinophils% 0.4 % (0-5); Hematocrit 35.9 % (40-54); Hemoglobin 11.5 g/dl (13.0-16.5); Lymphocyte # 0.57 X10^3/ul (4.0); Lymphocyte % 6.7 % (19-41); Mean Corpuscular Hgb 29.6 pg (27.0-32.0); Mean Corpuscular Volume 92.3 fL (80-94); Mean Platelet Vol. 11.7 fl (6.2-12.0); Monocyte# 0.81 X10^3/uL; Monocyte% 9.5 % (0-10); Neutrophil # 7.11 X10^3/uL (2.7-7.7); Neutrophil % 83.2 % (47-70); Platelet Count 216 K/mm3 (150-450); RBC Distribution Width CV 17.2 % (11.6-14.6); RBC Distribution Width SD 55.9 fl (35.1-43.9); Red Blood Count 3.89 M/mm3 (4.6-6.2); White Blood Count 8.5 K/mm3 (4.4-11.0)
[2018-08-21 17:26] LABS: Differential Indicated SCAN CRITERIA MET; POSITIVE COUNT NO; POSITIVE DIFFERENTIAL YES; POSITIVE MORPHOLOGY NO
--- NOTE | 2018-08-21 17:31 | ED.RN ---
bun 113 creat 6.71 lipase [address] lab. dr tian aware
[2018-08-21 17:32] LABS: AST(SGOT) 69 U/L (15-37); Alanine Aminotransfer ALT/SGPT 46 U/L (16-61); Albumin, Serum 3.7 g/dL (3.2-5.0); Alkaline Phosphatase 120 U/L (45-117); Anion Gap 19 (5-15); BUN 113 mg/dL (7-18); BUN/Creat Ratio 16.8 RATIO (10-20); Bilirubin, Direct 1.65 mg/dL (0.00-0.30); Calcium,Total 9.1 mg/dL (8.5-10.1); Chloride 92 mmol/L (98-107); Creatinine, Serum 6.71 mg/dL (0.70-1.30); EST Glomerular Filtration Rate 9 mL/min (>60); Est Glom Filt Rate - Afr Amer 10 mL/min (>60); Estimated Creatinine Clearance 10.62 ml/min; Globulin 4.7 g/dL (2.2-4.2); Glucose 136 mg/dL (74-106); Lipase 500 U/L (73-393); Potassium 3.1 mmol/L (3.5-5.1); Protein, Total 8.4 g/dL (6.4-8.2); Sodium Level 137 mmol/L (136-145)
--- NOTE | 2018-08-21 17:33 | CT_ITS ---
HISTORY: RIGHT FLANK PAIN, C/O RIGHT LEG PAIN FROM FALLING RECENTLY, SYNCOPE, CAD, CHF, HTN, PACER TECHNIQUE: Helically acquired images were obtained of the abdomen and pelvis without oral or IV contrast. A radiation dose optimization technique was used for this scan. COMPARISON: None FINDINGS: # of images incl. paperwork: 545 LOWER CHEST: 4 mm nodule anterior aspect base of the lower lobe of the right lung. Sternotomy wires, implanted cardiac device leads partially visible. LIVER: Incidental small cysts and calcifications. No concerning lesions. GALLBLADDER AND BILIARY TREE: Status post cholecystectomy. Likely incidental mild prominence of the common bile duct. KIDNEYS AND URETERS: 4 mm nonobstructing stone anterior lower pole calyx left kidney. No hydronephrosis. Ureters unremarkable. Incidental small renal cysts. ADRENAL GLANDS: Non-enlarged. SPLEEN: Normal size, no mass. PANCREAS: No pancreatic inflammation or mass. BOWEL: Prior appendectomy. No obstruction or inflammation of the bowel. Colonic anastomosis in the pelvis. Scattered diverticula of the left colon, no diverticulitis. LYMPH NODES: No enlarged mesenteric or retroperitoneal lymph nodes. PERITONEUM: No ascites or free air. No other fluid collection. VESSELS: Atherosclerosis with ectatic but nonaneurysmal infrarenal abdominal aorta 2.8 cm in greatest diameter. URINARY BLADDER: Decompressed with Boykin catheter. REPRODUCTIVE ORGANS: No pelvic masses.Prostate normal size. ABDOMINAL WALL: Mild subcutaneous edema right flank, and right greater than left buttocks and hips. BONES: No acute osseous abnormality. Right lateral 10th and 11th rib fractures which are either chronic or late subacute. Status post right hip arthroplasty. Degenerative changes lumbar spine. CT/Abdomen/Pelvis without Cont IMPRESSION: Mild subcutaneous edema right flank, and right greater than left buttocks and hips. This could represent incidental nonspecific edema, bruising, or cellulitis. Please correlate with physical examination. No other acute findings. Individualized dose optimization techniques were used for this CT. at 1923 Reported and signed by: Charanjit Valdovinos MD Electronically Signed: Charanjit Valdovinos, at 19:22 EDT Tel , Service support ,
[2018-08-21 17:57] LABS: International Normalized Ratio 1.2; Prothrombin Time (Protime)PT. 15.2 SECONDS (11.7-14.9)
[2018-08-21 17:59] LABS: Platelet Estimate ADEQUATE (ADEQ); Red Cell Morphology NORM C+C NORMAL (NORM C&C)
--- NOTE | 2018-08-21 19:24 | CM.ED ---
SOCIAL WORK UPDATED BY NURSING PATIENT'S IS READY TO LEAVE. FRIEND IS HERE TO TRANSPORT. CALL TO THE AVENUE TO UPDATE IS LEAVING AT THIS TIME. DARI CANTU, GAME DESIGNER, [employer]OOM HANDLE DIPPER.
--- NOTE | 2018-08-21 20:04 | HP.PCM_ITS ---
Problem List (1) RAFAT (acute kidney injury) Status: Acute (2) Hyperalbuminemia Status: Acute (3) Elevated liver enzymes Status: Acute History of Present Illness Date of Admission: 08/21/18 Chief Complaint: weakness and falls The patient is a 73 year old M with a significant history of CAD status post CABG and stent; hypertension; atrial fibrillation; and CKD who presented to the emergency department with a 6-week history of weakness and multiple falls. He reported that 6 weeks ago he fell and next day he could barely move. He reported that because of some cardiac issues [address] and ever he has had lightheadedness with standing up; near syncope and multiple falls. He thinks that one of the medication that was escalated was Lasix. He is unable to tell which other medication was escalated. The last time that he took Lasix was 4 days ago. Last time he fell was about 3 days ago. He reports excruciating pain on his right buttocks because of his fall. Reportedly Following his fall he had an x-ray at our hospital and also he went to orthopedic surgeon's office for an x-ray. Past Medical History Past Medical History (Chronic Problems): Chronic Problems (Last Reviewed 08/22/18 @ 03:47 by Lavelle Robertson MD) Paroxysmal atrial fibrillation (Chronic) DCCV 12/2016 and June 2017; Nonrheumatic mitral (valve) insufficiency (Chronic) Paroxysmal ventricular tachycardia (Chronic) Atrial flutter (Chronic) Presence of cardiac pacemaker (Chronic ~08/19/12) Sick sinus syndrome (Chronic) S/P PPM November 2005; H/O coronary artery bypass surgery (Chronic ~06/28/04) MCKENZIE-LAD, Free MARGAUX-OM2 History of coronary artery stent placement (Chronic) Stent - RCA 06/2004 Stent-LAD 06/2007 Atherosclerosis of coronary artery bypass graft without angina pectoris (Chronic) Ischemic cardiomyopathy (Chronic) Hyperlipidemia (Chronic) Hypertension (Chronic) Atherosclerosis of coronary artery of false pass heart without angina pectoris (Chronic) PTCA/Stent to RCA 06/27/2004; CABG with MCKENZIE to LAD and free MARGAUX to OM2 in June 2004; PTCA/Stent of the proximal LAD June 2007; Chronic systolic (congestive) heart failure (Chronic) Medical History: Medical History (Last Reviewed 08/22/18 @ 03:47 by Lavelle Robertson MD) Nonrheumatic mitral (valve) insufficiency (Chronic) I34.0 Paroxysmal ventricular tachycardia (Chronic) I47.2 Atrial flutter (Chronic) I48.92 Sick sinus syndrome (Chronic) I49.5 S/P PPM November 2005; Atherosclerosis of coronary artery bypass graft without angina pectoris (Chronic) I25.810 Ischemic cardiomyopathy (Chronic) I25.5 Hyperlipidemia (Chronic) E78.5 Hypertension (Chronic) I10 Atherosclerosis of coronary artery of false pass heart without angina pectoris (Chronic) I25.10 PTCA/Stent to RCA 06/27/2004; CABG with MCKENZIE to LAD and free MARGAUX to OM2 in June 2004; PTCA/Stent of the proximal LAD June 2007; Chronic systolic (congestive) heart failure (Chronic) I50.22 History of cardioversion Onset Date: ~12/25/16 Z98.890 Obstructive sleep apnea G47.33 Old myocardial infarction Onset Date: ~06/2004 I25.2 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 Renal insufficiency N28.9 Allergies Penicillins Adverse Reaction (Mild, Verified 08/21/18 14:54) Upset Stomach SEASONAL Allergy (Mild, Uncoded 08/21/18 14:54) Other Home Medications: Ambulatory Orders Medication Instructions Recorded Amiodarone HCl 200 mg PO DAILY 08/07/18 Gabapentin [Neurontin] 300 mg PO BID 08/07/18 Latanoprost 0.005% [Xalatan 1 drp EACH EYE QHS 08/07/18 Opthalmic] Prednisolone Acetate [Pred Forte] 1 drp EACH EYE QHS 08/07/18 Rivaroxaban [Xarelto] 20 mg PO DAILY 08/07/18 Rosuvastatin Calcium [Crestor] 40 mg PO QHS 08/07/18 Tamsulosin HCl [Flomax] 0.4 mg PO DAILY 08/07/18 Venlafaxine HCl [Venlafaxine HCl 150 mg PO DAILY 08/07/18 ER] metFORMIN (XR) [Glucophage Xr] 500 mg PO BID 08/07/18 Surgical History: Surgical History (Last Reviewed 08/22/18 @ 03:47 by Lavelle Robertson MD) Presence of cardiac pacemaker (Chronic) Onset Date: ~08/19/12 Z95.0 H/O coronary artery bypass surgery (Chronic) Onset Date: ~06/28/04 Z95.1 MCKENZIE-LAD, Free MARGAUX-OM2 History of coronary artery stent placement (Chronic) Z95.5 Stent - RCA 06/2004 Stent-LAD 06/2007 History of electrophysiologic study Onset Date: ~05/2008 Z98.890 07/09/07 History of right hip replacement Z96.641 Surgical History: coronary bypass surgery, - - CABG x2, PCI, right hip replacement, pacemaker placement, bilateral total knee replacement. Psychiatric History: Anxiety, Depression Smoking Status: Never smoker Tobacco Use: Non-smoker - *Family History Maternal Family History: Family History (Last Reviewed 08/22/18 @ 03:47 by Lavelle Robertson MD) Mother CVA (cerebral vascular accident) Hypertension Sister Hypertension Daughter Brain aneurysm History Items: - - Patient notes a maternal family history of hypertension. Paternal Family History: Family History (Last Reviewed 08/22/18 @ 03:47 by Lavelle Robertson MD) Mother CVA (cerebral vascular accident) Hypertension Sister Hypertension Daughter Brain aneurysm History Items: - - Patient notes a paternal family history of coronary disease, heart disease, passed from [place]. Review of Systems Constitutional: Reports: Weakness. Denies: Chills, Fever, Weight Change HEENT: Denies: Head Aches, Sinus Congestion, Sinus Drainage Cardiovascular: Reports: Light Headedness. Denies: Chest Pain, Palpitations Respiratory: Denies: Cough, Shortness of breath at rest, Sputum production Gastrointestinal: Denies: Abdominal Pain, Nausea, Vomiting Genitourinary: Denies: Dysuria Musculoskeletal: Reports: - - pain at right buttocks. Denies: Joint Pain, Joint Tenderness Skin: Reports: - - multiple bruises. Denies: Rash, Wounds Neurological: Denies: Numbness, Tingling, Focal weakness Psychiatric: Denies: Anxiety, Depression, Homicidal Ideations, Suicidal Ideations Hematologic/ Lymphatic: Reports: Purpura. Denies: Adenopathy, Petechiae VTE Information - Inpt Only VTE Present on Admission: No VTE Mechan Device Prophylaxis: None VTE Pharm Prophylaxis ordered?: No Reason prophylaxis not ordered:: Treatment Not Indicated - On Xarelto for Afib, continue Patient Problems: Active and Suspected Problems (Last Reviewed 08/22/18 @ 03:47 by Lavelle Robertson MD) Acute renal failure (Acute) Dehydration (Acute) Elevated liver enzymes (Acute) RAFAT (acute kidney injury) (Acute) Hyperalbuminemia (Acute) - Physical Exam General: Alert, Oriented x3, Cooperative HEENT: Atraumatic, PERRLA, EOMI, Normocephalic Neck: Supple, No JVD, Negative Carotid Bruits Lungs: Clear to auscultation, Normal air movement Cardiovascular: No murmurs, Irregular Rate Abdomen: Bowel Sounds Present, Soft, Non Tender Extremities: No edema, Capillary Refill Less than 3 Seconds Skin: No rashes, No breakdown, - - multiple bruise on body. Swelling of right buttocks; tender. Musculoskeletal: No Tenderness to Palpation of Joints or Extremities Neurological: Cranial nerves II-XII grossly intact Psych/Mental Status: Normal Affect, Appropriate Vital Signs Temp Pulse Resp BP Pulse Ox 97.4 F L 62 15 127/76 H 97 08/21/18 14:45 08/21/18 19:38 08/21/18 19:38 08/21/18 17:19 08/21/18 19:38 Oxygen Delivery Method Room Air Weight: 78.925 kg Body Mass Index (BMI) 22.9 Finger Stick Blood Glucose 309 Laboratory Tests Past 24 Hrs 08/21/18 08/21/18 08/21/18 15:50 16:50 16:50 WBC 8.5 RBC 3.89 L Hgb 11.5 L Hct 35.9 L MCV 92.3 MCH 29.6 MCHC 32.0 RDW 17.2 H RDW Differential 55.9 H Plt Count 216 MPV 11.7 Immature Gran % (Auto) 0.200 Neut % (Auto) 83.2 H Lymph % (Auto) 6.7 L [place] % (Auto) 9.5 Eos % (Auto) 0.4 Baso % (Auto) 0.0 Absolute Neuts (auto) 7.1 Absolute Lymphs (auto) 0.57 L Total Counted Not Reportable Differential Comment Diff Path Review May foll Platelet Estimate ADEQUATE RBC Morphology NORM C+C PT 15.2 H INR 1.2 Sodium Potassium Chloride Carbon Dioxide Anion Gap BUN Creatinine Estim Creat Clear Calc Est GFR (MDRD) Af Amer Est GFR (MDRD) Non-Af BUN/Creatinine Ratio Glucose Calcium Total Bilirubin Direct Bilirubin AST ALT Alkaline Phosphatase Troponin I Total Protein Albumin Globulin Lipase Urine Color Yellow Urine Clarity Sl. Cloudy Urine pH 6.0 Ur Specific [place] 1.015 Urine Protein 100 H Urine Glucose (UA) Normal Urine Ketones Negative Urine Occult Blood 150 H Urine Nitrite Negative Urine Bilirubin Negative Urine Urobilinogen 4 H Ur Leukocyte Esterase Negative Urine RBC 10-25 SEEN Urine WBC 0-5 SEEN Ur Squamous Epith Cells 0-5 SEEN Ur Transition Epith Cell 0-5 SEEN Amorphous Sediment 1+ URATE Urine Bacteria 0 SEEN Urine Mucus 0 SEEN 08/21/18 16:50 WBC RBC Hgb Hct MCV MCH MCHC RDW RDW Differential Plt Count MPV Immature Gran % (Auto) Neut % (Auto) Lymph % (Auto) [place] % (Auto) Eos % (Auto) Baso % (Auto) Absolute Neuts (auto) Absolute Lymphs (auto) Total Counted Differential Comment Diff Path Review Platelet Estimate RBC Morphology PT INR Sodium 137 Potassium 3.1 L Chloride 92 L Carbon Dioxide 26.0 Anion Gap 19 H BUN 113 H* Creatinine 6.71 H Estim Creat Clear Calc 10.62 Est GFR (MDRD) Af Amer 10 L Est GFR (MDRD) Non-Af 9 L BUN/Creatinine Ratio 16.8 Glucose 136 H Calcium 9.1 Total Bilirubin 2.90 H Direct Bilirubin 1.65 H AST 69 H ALT 46 Alkaline Phosphatase 120 H Troponin I 0.173 H Total Protein 8.4 H Albumin 3.7 Globulin 4.7 H Lipase 500 H Urine Color Urine Clarity Urine pH Ur Specific [place] Urine Protein Urine Glucose (UA) Urine Ketones Urine Occult Blood Urine Nitrite Urine Bilirubin Urine Urobilinogen Ur Leukocyte Esterase Urine RBC Urine WBC Ur Squamous Epith Cells Ur Transition Epith Cell Amorphous Sediment Urine Bacteria Urine Mucus Assessment/Plan All Active Problems (Last Reviewed 08/22/18 @ 03:47 by Lavelle Robertson MD) Acute renal failure (Acute) Dehydration (Acute) Elevated liver enzymes (Acute) RAFAT (acute kidney injury) (Acute) Hyperalbuminemia (Acute) Atrial fibrillation with RVR (Acute) Hypotensive episode (Acute) The patient is a 73 year old M with a significant history of CAD status post CABG and stent; hypertension; atrial fibrillation; and CKD who presented to the emergency department with a 6-week history of weakness and multiple falls and found to have severely BUN and creatinine; hyperbilirubinemia and elevated liver enzymes; as well as elevated troponin consistent with acute on chronic kidney injury secondary to likely dehydration. Acute on chronic kidney injury Stage IIIa Of presentation his creatinine was 6.71 Review of old records show that his baseline creatinine is about 1.24 His BUN on presentation was 113. His BUN 8 days ago was 24. Review of old records show that his previous highest BUN was in 2013 and at that time it was 31. BUN over creatinine is 16.8; less than 20. Likely intrinsic renal (ATN) from progression of prerenal. Will get urinary studies. Because of dysuria severity of kidney injury will consult nephrology. Patient received normal saline bolus in the emergency department. Will continue on gentle IV hydration. Avoid nephrotoxic's Fall with multiple bruises Likely due to dehydration . IV hydration as above. Check Vitamin B12. PRN oxycodone PT and OT to work with patient for strengthening and balance training. Hyperbilirubinemia with transaminitis CT of the abdomen and pelvis showed status post cholecystectomy. Likely incidental mild prominence of the common bile duct. We will get ultrasound of gallbladder to further evaluate biliary ducts. Of note patient has had cholecystectomy as above. If clinically indicated consider MRCP. Elevated troponin Likely due to poor clearance secondary to RAFAT Trend Neuropathy Because of RAFAT: Adjust home gabapentin. Atrial fibrillation On presentation patient is stable A. fib Amiodarone continued Xarelto continued BPH Flomax continued Depression Effexor continued Hyperlipidemia Lipitor continued DVT prophylaxis Not indicated since patient is on Xarelto for A. fib Xarelto continued. Code Visit Inpatient E&M: 37920 Init Hosp L3
[2018-08-21] MEDS: 0.9% Normal Saline 1,000 ML 100 ML IV (23:36)
[2018-08-21] MEDS: 0.9% NaCl Peripheral Flush Adult/Peds IV (23:36)
[2018-08-22] VITALS (9 sets, daily range): BP systolic 93–122; BP diastolic 61–70; PULSE 60–103; RESP 16; TEMP 36.6–37.1; O2SAT 96–100
[2018-08-22] MEDS: oxyCODONE 5 MG Tablet PO ×4 (00:13→23:03)
[2018-08-22 00:52] LABS: Urea Nitrogen, Urine 651 mg/dL (NO RANGE EST.); Urine Sodium 41 mmol/L (Not Establ.)
[2018-08-22 04:55] LABS: Osmolality, Urine 378 mOsm/KG
--- NOTE | 2018-08-22 05:55 | US_ITS ---
STUDY: ABDOMINAL ULTRASOUND - RIGHT UPPER QUADRANT REASON FOR VISIT: Male, 73 years old. Abnormal labs TECHNIQUE: Ultrasound evaluation of the right upper quadrant was performed with real-time and static ponce-scale imaging. TECHNICAL QUALITY: Adequate. COMPARISON: None. FINDINGS: Liver: The liver measures 17 cm. There is normal echogenicity of the liver. The bile ducts are within normal limits. There is hepatic color flow. The direction of portal flow is hepatopetal. There is no demonstrated mass lesion. Gallbladder: Removed. Common Bile Duct (C.B.D.): The common bile duct measures 12 mm. Pancreas: Normal size of the head, body and tail of the pancreas. There is normal echogenicity of the pancreas. There is no demonstrated pancreatic mass or cyst. Right Kidney: Normal size of the right kidney. The right kidney measures 12 cm. Nonobstructing right renal cortical calcification present. There is no demonstrated renal mass or cyst. There is no right hydronephrosis. US/Abdomen Limited IMPRESSION: No acute abdominal pathology identified. Common bile duct prominence, likely secondary to cholecystectomy status. Correlate clinically. Electronically Signed: Asaf Loja, at 19:08 EDT Tel , Service support ,
[2018-08-22 08:33] LABS: Anion Gap 12 (5-15); BUN 107 mg/dL (7-18); BUN/Creat Ratio 17.1 RATIO (10-20); Calcium,Total 8.9 mg/dL (8.5-10.1); Chloride 99 mmol/L (98-107); Creatinine, Serum 6.26 mg/dL (0.70-1.30); EST Glomerular Filtration Rate 9 mL/min (>60); Est Glom Filt Rate - Afr Amer 11 mL/min (>60); Estimated Creatinine Clearance 11.05 ml/min; Glucose 117 mg/dL (74-106); Potassium 3.7 mmol/L (3.5-5.1); Sodium Level 139 mmol/L (136-145)
[2018-08-22] MEDS: Gabapentin 100 MG Capsule PO ×2 (08:52→15:05)
[2018-08-22] MEDS: Venlafaxine XR 150 MG Capsule PO (08:52)
[2018-08-22] MEDS: 0.9% Normal Saline 1,000 ML 100 ML IV (08:52)
[2018-08-22] MEDS: Amiodarone 200 MG Tablet PO (08:52)
--- NOTE | 2018-08-22 10:08 | PN_ITS ---
Patient Problems: Active and Suspected Problems (Last Reviewed 08/22/18 @ 03:47 by Lavelle Robertson MD) Acute renal failure (Acute) Dehydration (Acute) Elevated liver enzymes (Acute) RAFAT (acute kidney injury) (Acute) Hyperalbuminemia (Acute) Subjective: Patient is a 73-year-old gentleman with multiple comorbidities admitted to the emergency department with progressive generalized weakness and multiple falls. Patient was found to have markedly elevated BUN and creatinine. Creatinine admission was 6.71; patient had a creatinine of 1.26 on 08/13/2018. Admitted to a monitored bed for subsequent management Objective: GENERAL: frail HEENT: Atraumatic; EYES; Anicteric, NECK; supple, normal thyroid, RESPIRATORY: Diminished to auscultation CARDIOVASCULAR: Regular S1 S2, systolic murmur GI: soft, non-tender, normoactive bowel sounds, : No Renal angle tenderness; EXTREMITIES: No edema, no clubbing, no cyanosis. MUSCULOSKELETAL: No Joint Tenderness; NEURO: Awake; no lateralizing signs. SKIN: Bruises on both upper and lower extremities PSYCH; flat affect Vitals/I&O's: Vital Signs Temp Pulse Resp BP Pulse Ox 98.6 F 60 16 122/68 H 100 08/22/18 08:48 08/22/18 08:48 08/22/18 08:48 08/22/18 08:48 08/22/18 08:48 Oxygen Delivery Method Room Air Weight: 76.6 kg Body Mass Index (BMI) 22.2 Finger Stick Blood Glucose 309 Intake and Output for Last 24 Hours 08/20/18 08/21/18 08/22/18 23:59 23:59 23:59 Intake Total 662 / 662 Output Total 600 / 600 450 / 450 Balance -600 / -600 212 / 212 Laboratory Results 08/21/18 15:50: Urine Color Yellow, Urine Clarity Sl. Cloudy, Urine pH 6.0, Ur Specific [facility] 1.015, Urine Protein 100 H, Urine Glucose (UA) Normal, Urine Ketones Negative, Urine Occult Blood 150 H, Urine Nitrite Negative, Urine Bilirubin Negative, Urine Urobilinogen 4 H, Ur Leukocyte Esterase Negative, Urine RBC 10-25 SEEN, Urine WBC 0-5 SEEN, Ur Squamous Epith Cells 0-5 SEEN, Ur Transition Epith Cell 0-5 SEEN, Amorphous Sediment 1+ URATE, Urine Bacteria 0 SEEN, Urine Mucus 0 SEEN 08/21/18 16:50: WBC 8.5, RBC 3.89 L, Hgb 11.5 L, Hct 35.9 L, MCV 92.3, MCH 29.6, MCHC 32.0, RDW 17.2 H, RDW Differential 55.9 H, Plt Count 216, MPV 11.7, Im mature Gran % (Auto) 0.200, Neut % (Auto) 83.2 H, Lymph % (Auto) 6.7 L, [place] % (Auto) 9.5, Eos % (Auto) 0.4, Baso % (Auto) 0.0, Absolute Neuts (auto) 7.1, Absolute Lymphs (auto) 0.57 L, Total Counted Not Reportable, Differential Comment , Diff Path Review June, Platelet Estimate ADEQUATE, RBC Morphology NORM C+C 08/21/18 16:50: PT 15.2 H, INR 1.2 08/21/18 16:50: Sodium 137, Potassium 3.1 L, Chloride 92 L, Carbon Dioxide 26.0, Anion Gap 19 H, BUN 113 H*, Creatinine 6.71 H, Estim Creat Clear Calc 10.62, Est GFR (MDRD) Af Amer 10 L, Est GFR (MDRD) Non-Af 9 L, BUN/Creatinine Ratio 16.8, Glucose 136 H, Calcium 9.1, Total Bilirubin 2.90 H, Direct Bilirubin 1.65 H, AST 69 H, ALT 46, Alkaline Phosphatase 120 H, Troponin I 0.173 H, Total Protein 8.4 H, Albumin 3.7, Globulin 4.7 H, Lipase 500 H 08/22/18 00:19: Urine Osmolality 378 08/22/18 00:19: Urine Creatinine Cancelled 08/22/18 00:19: Ur Random Sodium 41, Urine Creatinine 63.50, Urine Urea Nitrogen 651 08/22/18 00:19: Ur Random Sodium Cancelled 08/22/18 03:50: Troponin I 0.194 H 08/22/18 06:18: Sodium 139, Potassium 3.7, Chloride 99, Carbon Dioxide 28.0, Anion Gap 12, BUN 107 H*, Creatinine 6.26 H, Estim Creat Clear Calc 11.05, Est GFR (MDRD) Af Amer 11 L, Est GFR (MDRD) Non-Af 9 L, BUN/Creatinine Ratio 17.1, Glucose 117 H, Calcium 8.9, Troponin I 0.192 H 08/22/18 06:18: Vitamin B12 Pending 08/22/18 09:10: Troponin I 0.203 H Current Medications [facility]) [facility] Last Admin: 08/22/18 08:52 Dose: 200 mg Documented by: Atorvastatin Calcium (Lipitor) 80 mg PO QHS [facility] Dextrose (D50w Syringe) 0 gm IV X1 PRN; Protocol PRN Reason: Hypoglycemia Gabapentin (Neurontin) [facility] Last Admin: 08/22/18 08:52 Dose: 100 mg Documented by: Glucagon () 1 mg IM .X1 PRN PRN Reason: Hypoglycemia Sodium Chloride () 250 mls @ 15 mls/hr IV .[id number] PRN PRN Reason: SALINE FLUSH Sodium Chloride () 1,000 mls @ 100 mls/hr IV .Q10H [facility] Stop: 08/22/18 13:58 Last Admin: 08/22/18 08:52 Dose: 100 mls/hr Documented by: Latanoprost (Xalatan Opthalmic) 1 drop EACH EYE QHS [facility] Nutritional Formula (Lactose Free) (Glucerna Shake) 120 ml PO 4X/DAY [facility] Last Admin: 08/22/18 08:52 Dose: Not Given Documented by: Ondansetron HCl (Zofran) 4 mg IV Q8H PRN PRN PRN Reason: NAUSEA/VOMITING Oxycodone HCl (Oxyir) 5 mg PO Q4H PRN PRN PRN Reason: Moderate Pain (4-6/10) Last Admin: 08/22/18 08:55 Dose: 5 mg Documented by: Prednisolone Acetate (Pred Forte Eye Drops (5 Ml)) 1 drop EACH EYE QHS [facility] Rivaroxaban (Xarelto) 20 mg PO DAILY@1700 [facility] Sodium Chloride () 10 - 40 ml IV UD PRN PRN Reason: SALINE FLUSH Last Admin: 08/21/18 23:36 Dose: 10 ml Documented by: Tamsulosin HCl (Flomax) 0.4 mg PO DAILY@1730 [facility] Venlafaxine HCl (Effexor Xr) 150 mg PO DAILY [facility] Last Admin: 08/22/18 08:52 Dose: 150 mg Documented by: Medical Necessity - Tobacco Use Smoking Status: Never smoker Tobacco Use: Non-smoker Assessment/Plan All Active Problems (Last Reviewed 08/22/18 @ 03:47 by Lavelle Robertson MD) Acute renal failure (Acute) Dehydration (Acute) Elevated liver enzymes (Acute) RAFAT (acute kidney injury) (Acute) Hyperalbuminemia (Acute) Atrial fibrillation with RVR (Acute) Hypotensive episode (Acute) Patient is a 73-year-old gentleman with multiple comorbidities admitted to the emergency department with progressive generalized weakness and multiple falls. Patient was found to have markedly elevated BUN and creatinine. Creatinine admission was 6.71; patient had a creatinine of 1.26 on 08/13/2018. Admitted to a monitored bed for subsequent management 1. Acute kidney injury: [place] to be secondary to prerenal as well as medications. Patient was discharged home on 08/08/2018 with metformin as well as lisinopril. The offending medications discontinued on on admission, patient admitted to a monitored bed way where patient is being managed with IV fluids with subsequent monitoring of electrolytes. As part of patient management ordered renal ultrasound and consultation was placed to nephrology on admission 2. Adult failure to thrive with multiple falls and extensive bruises requested for PT OT eval 3. Coronary artery disease with previous CABG and subsequent stent placement (CABG x2 (2004)-patient has a history of stent to RCA June 2004, CABG x2 with [place] to LAD and free MARGAUX to OM 2 in June 2004, stent of proximal LAD June 2007) 4. Paroxysmal atrial fibrillation patient is on amiodarone as well as systemic anticoagulation with Xarelto. The patient underwent DC cardioversion on 08/07/2018 5. Hypertension-blood pressure controlled, home medications continued with dose adjustment as needed 6. Dyslipidemia-patient is on statin therapy, continued at home dose 7. Elevated troponin secondary to demand ischemia as a result of patient acute kidney injury 8. BPH patient is on Flomax 9. Depression patient is on SSRI 10. Sick sinus syndrome status post pacemaker placement 11. Diabetes mellitus type 2 patient on metformin discontinued in view of his impaired kidney function 12. Chronic kidney disease stage II-III with baseline creatinine of 1.2-1.4 13. Anemia secondary to anemia of chronic disorder monitoring H&H 14. Chronic systolic congestive heart failure secondary to ischemic cardiomyopathy with an ejection fraction of 35% based on echo obtain on 03/29/2018 15. DVT prophylaxis on Xarelto Active Medications Amiodarone HCl (Cordarone) 200 mg PO DAILYCM [facility] Last Admin: 08/22/18 08:52 Dose: 200 mg Documented by: Atorvastatin Calcium (Lipitor) 80 mg PO QHS [facility] Dextrose (D50w Syringe) 0 gm IV X1 PRN; Protocol PRN Reason: Hypoglycemia Gabapentin (Neurontin) 100 mg PO BIDCM [facility] Last Admin: 08/22/18 08:52 Dose: 100 mg Documented by: Glucagon () 1 mg IM .X1 PRN PRN Reason: Hypoglycemia Sodium Chloride () 250 mls @ 15 mls/hr IV .[id number] PRN PRN Reason: SALINE FLUSH Sodium Chloride () 1,000 mls @ 100 mls/hr IV .Q10H [facility] Stop: 08/22/18 13:58 Last Admin: 08/22/18 08:52 Dose: 100 mls/hr Documented by: Latanoprost (Xalatan Opthalmic) 1 drop EACH EYE QHS [facility] Nutritional Formula (Lactose Free) (Glucerna Shake) 120 ml PO 4X/DAY [facility] Last Admin: 08/22/18 08:52 Dose: Not Given Documented by: Ondansetron HCl (Zofran) 4 mg IV Q8H PRN PRN PRN Reason: NAUSEA/VOMITING Oxycodone HCl (Oxyir) 5 mg PO Q4H PRN PRN PRN Reason: Moderate Pain (4-6/10) Last Admin: 08/22/18 08:55 Dose: 5 mg Documented by: Prednisolone Acetate (Pred Forte Eye Drops (5 Ml)) 1 drop EACH EYE QHS [facility] Rivaroxaban (Xarelto) 20 mg PO DAILY@1700 [facility] Sodium Chloride () 10 - 40 ml IV UD PRN PRN Reason: SALINE FLUSH Last Admin: 08/21/18 23:36 Dose: 10 ml Documented by: Tamsulosin HCl (Flomax) 0.4 mg PO DAILY@1730 [facility] Venlafaxine HCl (Effexor Xr) 150 mg PO DAILY [facility] Last Admin: 08/22/18 08:52 Dose: 150 mg Documented by: Clinical Impression(s) from Imaging Studies Brain CT 08/21/18 15:24 IMPRESSION: Normal unenhanced CT scan of the brain. Circumferential mucosal thickening in the right maxillary sinus status post nasoantral window. Electronically Signed: Pauline Lyman MD at 17:12 EDT , Service support , Chest X-Ray 08/21/18 15:30 IMPRESSION: No acute cardiopulmonary findings. Negative for consolidation, focal atelectasis, cardiomegaly or pleural effusion. Prior atelectatic changes have resolved. Status post midline sternotomy. Right atrial and ventricular pacemaker leads are in good position and unchanged from prior exam. Electronically Signed: Pauline Lyman MD at 16:40 EDT , Service support , Hip/Pelvis X-Ray 08/21/18 17:05 IMPRESSION: Status post total hip arthroplasty with no acute bone, joint or hardware findings. Electronically Signed: Pauline Lyman MD at 17:23 EDT , Service support , Abdomen/Pelvis CT 08/21/18 17:33 IMPRESSION: Mild subcutaneous edema right flank, and right greater than left buttocks and hips. This could represent incidental nonspecific edema, bruising, or cellulitis. Please correlate with physical examination. No other acute findings. Individualized dose optimization techniques were used for this CT. at 1923 Reported and signed by: Charanjit Valdovinos MD Electronically Signed: Charanjit Valdovinos, at 19:22 EDT Tel , Service support , Code Visit Inpatient E&M: 40706 Subs Hosp L3
--- NOTE | 2018-08-22 10:18 | US_ITS ---
STUDY: RENAL ULTRASOUND - COMPLETE REASON FOR EXAM: Male, 73 years old. Acute renal failure TECHNIQUE: Ultrasound evaluation of the kidneys was performed with real-time and static hodgson-scale imaging. COMPARISON: Prior abdomen and pelvic CT exam of August 21, 2018 FINDINGS: RIGHT KIDNEY: Normal location of the right kidney, which is normal in size. The right kidney measures 11.3 x 6.6 x 4.6 cm. There is a normal cortex of the right kidney. The renal cortex measures 1.7 cm. 1.3 cm cyst. 2 echogenic foci. There is no right hydronephrosis. DISTAL RIGHT URETER: There is non-visualization of the distal right ureter. There is no demonstrated right ureteral jet. LEFT KIDNEY: Normal location of the left kidney, which is normal in size. The left kidney measures 10.8 x 5.8 x 6.3 cm. There is a normal cortex of the left kidney. The renal cortex measures 1.9 cm. Multiple small cysts of the left kidney measuring on average 1.6 cm and 0.9 cm. 1 echogenic focus. There is no left hydronephrosis. DISTAL LEFT URETER: There is non-visualization of the distal left ureter. There is no demonstrated left ureteral jet. BLADDER: Urinary bladder drained by Boykin catheter. US/Kidney and Bladder IMPRESSION: Normal size of the kidneys bilaterally without hydronephrosis. Simple renal cysts bilaterally. There is one nonobstructing echogenic focus in the lower mid pole of the left kidney, a confirmed nonobstructing renal stone by CT exam. There are 2 nonobstructing echogenic foci of the right kidney; however, not identified on CT exam as renal stones. Electronically Signed: Pauline Lyman MD at 15:35 EDT , Service support ,
[2018-08-22] MEDS: Tamsulosin HCl 0.4 MG Capsule PO (15:05)
[2018-08-22] MEDS: Rivaroxaban 20 MG Tablet PO (15:05)
[2018-08-22] MEDS: 0.9% Normal Saline 1,000 ML 125 ML IV ×2 (15:06→23:00)
[2018-08-22] MEDS: Glucerna Shake 120 ML LIQUID PO ×2 (15:08→21:22)
--- NOTE | 2018-08-22 16:39 | CON.PCM_ITS ---
Problem List (1) RAFAT (acute kidney injury) Status: Acute Consultation - Renal PCP/ Referring MD: Requesting physician: [] Primary care physician: Josemanuel Riley MD - History of Present Illness History of Present Illness: The patient is a 73 year old M past medical history of coronary disease status post CABG, hypertension, A. fib, chronic kidney disease with a baseline creatinine around 1.5 . Patient presented to [facility] emergency room with multiple falls . Patient's fall started about a month ago . Patient stated his cardiac medication doses were increased . He does not know what the name of the medications that were increased he thinks might be Lasix . Patient could not walk yesterday so I decided to go the emergency room . In the emergency room he was found to have acute worsening kidney function with creatinine up to 6.7 . Patient said he has not been eating for the last week . He said he did not notice any decrease in the urine output . Patient was started on maintenance IV fluid at 125 cc/h . Kidney function slightly better today at 6.26 . Renal ultrasound is negative for hydronephrosis . Patient has Boykin catheter in place . He is off diuretics . Patient still complaining of generalized weakness . Denied any nausea vomiting . Breathing is stable . Denies any chest pain . Review of system : 12 system review is negative except for mentioned HPI [] - Allergies Allergies: Allergies Penicillins Adverse Reaction (Mild, Verified 08/21/18 14:54) Upset Stomach SEASONAL Allergy (Mild, Uncoded 08/21/18 14:54) Other - Current Medications Current Medications: Current Medications [facility] Last Admin: 08/22/18 08:52 Dose: 200 mg Documented by: Atorvastatin Calcium (Lipitor) 80 mg PO QHS [facility] Dextrose (D50w Syringe) 0 gm IV X1 PRN; Protocol PRN Reason: Hypoglycemia Gabapentin ([facility]urontin) [facility] Last Admin: 08/22/18 15:05 Dose: 100 mg Documented by: Glucagon () 1 mg IM .X1 PRN PRN Reason: Hypoglycemia Sodium Chloride () 250 mls @ 15 mls/hr IV .[id number] PRN PRN Reason: SALINE FLUSH Sodium Chloride () 1,000 mls @ 125 mls/hr IV .Q8H [facility] Stop: 08/23/18 18:54 Last Admin: 08/22/18 15:06 Dose: 125 mls/hr Documented by: Latanoprost (Xalatan Opthalmic) 1 drop EACH EYE QHS [facility] Nutritional Formula (Lactose Free) (Glucerna Shake) 120 ml PO 4X/DAY [facility] Last Admin: 08/22/18 15:08 Dose: 120 ml Documented by: Ondansetron HCl (Zofran) 4 mg IV Q8H PRN PRN PRN Reason: NAUSEA/VOMITING Oxycodone HCl (Oxyir) 5 mg PO Q4H PRN PRN PRN Reason: Moderate Pain (4-6/10) Last Admin: 08/22/18 08:55 Dose: 5 mg Documented by: Prednisolone Acetate (Pred Forte Eye Drops (5 Ml)) 1 drop EACH EYE QHS [facility] Rivaroxaban (Xarelto) 20 mg PO DAILY@1700 [facility] Last Admin: 08/22/18 15:05 Dose: 20 mg Documented by: Sodium Chloride () 10 - 40 ml IV UD PRN PRN Reason: SALINE FLUSH Last Admin: 08/21/18 23:36 Dose: 10 ml Documented by: Tamsulosin HCl (Flomax) 0.4 mg PO DAILY@1730 [facility] Last Admin: 08/22/18 15:05 Dose: 0.4 mg Documented by: Venlafaxine HCl (Effexor Xr) 150 mg PO DAILY [facility] Last Admin: 08/22/18 08:52 Dose: 150 mg Documented by: - Past Medical History Past Medical History (Chronic Problems): Chronic Problems (Last Reviewed 08/22/18 @ 03:47 by Lavelle Robertson MD) Paroxysmal atrial fibrillation (Chronic) [facility] 12/2016 and June 2017; Nonrheumatic mitral (valve) insufficiency (Chronic) Paroxysmal ventricular tachycardia (Chronic) Atrial flutter (Chronic) Presence of cardiac pacemaker (Chronic ~08/19/12) Sick sinus syndrome (Chronic) S/P PPM November 2005; H/O coronary artery bypass surgery (Chronic ~06/28/04) MCKENZIE-LAD, Free MARGAUX-OM2 History of coronary artery stent placement (Chronic) Stent - RCA 06/2004 Stent-LAD 06/2007 Atherosclerosis of coronary artery bypass graft without angina pectoris (Chronic) Ischemic cardiomyopathy (Chronic) Hyperlipidemia (Chronic) Hypertension (Chronic) Atherosclerosis of coronary artery of [place] heart without angina pectoris (Chronic) PTCA/Stent to RCA 06/27/2004; CABG with MCKENZIE to LAD and free MARGAUX to OM2 in June 2004; PTCA/Stent of the proximal LAD June 2007; Chronic systolic (congestive) heart failure (Chronic) - Past Surgical History Surgical History: coronary bypass surgery, - - CABG x2, PCI, right hip replacement, pacemaker placement, bilateral total knee replacement. - Social History Smoking Status: Never smoker - Family History Maternal Family History: Family History (Last Reviewed 08/22/18 @ 03:47 by Lavelle Robertson MD) Mother CVA (cerebral vascular accident) Hypertension Sister Hypertension Daughter Brain aneurysm History Items: - - Patient notes a maternal family history of hypertension. Paternal Family History: Family History (Last Reviewed 08/22/18 @ 03:47 by Lavelle Robertson MD) Mother CVA (cerebral vascular accident) Hypertension Sister Hypertension Daughter Brain aneurysm History Items: - - Patient notes a paternal family history of coronary disease, heart disease, passed from [place]. Patient Problems: Active and Suspected Problems (Last Reviewed 08/22/18 @ 03:47 by Lavelle Robertson MD) Acute renal failure (Acute) Dehydration (Acute) Elevated liver enzymes (Acute) RAFAT (acute kidney injury) (Acute) Hyperalbuminemia (Acute) - Physical Exam General: Alert, Oriented x3 HEENT: PERRLA, EOMI Oral: Dry Mucosa Neck: Supple, No JVD Lungs: Clear to auscultation, Normal air movement, No rhonchi, No wheeze Cardiovascular: Regular rate, Regular Rhythm, Normal S1, Normal S2 Abdomen: Bowel Sounds Present, Soft, Non Tender, Non-Distended Extremities: No clubbing, No cyanosis, No edema Skin: No rashes Lymphatic: No Cervical, Supraclavicular, or Inguinal Adenopathy Neurological: Neuro grossly intact Psych/Mental Status: Appropriate Vital Signs Temp Pulse Resp BP Pulse Ox 98.7 F 61 16 119/70 100 08/22/18 14:45 08/22/18 15:24 08/22/18 14:45 08/22/18 14:45 08/22/18 14:45 Oxygen Delivery Method Room Air Weight: 76.6 kg Body Mass Index (BMI) 22.2 Finger Stick Blood Glucose 309 Intake and Output for Last 24 Hours 08/20/18 08/21/18 08/22/18 23:59 23:59 23:59 Intake Total 1368 / 1368 Output Total 600 / 600 900 / 900 Balance -600 / -600 468 / 468 Laboratory Tests Past 24 Hrs 08/21/18 08/21/18 08/21/18 16:50 16:50 16:50 WBC 8.5 RBC 3.89 L Hgb 11.5 L Hct 35.9 L MCV 92.3 MCH 29.6 MCHC 32.0 RDW 17.2 H RDW Differential 55.9 H Plt Count 216 MPV 11.7 Immature Gran % (Auto) 0.200 Neut % (Auto) 83.2 H Lymph % (Auto) 6.7 L [place] % (Auto) 9.5 Eos % (Auto) 0.4 Baso % (Auto) 0.0 Absolute Neuts (auto) 7.1 Absolute Lymphs (auto) 0.57 L Total Counted Not Reportable Differential Comment Diff Path Review May foll Platelet Estimate ADEQUATE RBC Morphology NORM C+C PT 15.2 H INR 1.2 Sodium 137 Potassium 3.1 L Chloride 92 L Carbon Dioxide 26.0 Anion Gap 19 H BUN 113 H* Creatinine 6.71 H Estim Creat Clear Calc 10.62 Est GFR (MDRD) Af Amer 10 L Est GFR (MDRD) Non-Af 9 L BUN/Creatinine Ratio 16.8 Glucose 136 H Calcium 9.1 Total Bilirubin 2.90 H Direct Bilirubin 1.65 H AST 69 H ALT 46 Alkaline Phosphatase 120 H Troponin I 0.173 H Total Protein 8.4 H Albumin 3.7 Globulin 4.7 H Lipase 500 H Vitamin B12 Urine Osmolality Ur Random Sodium Urine Creatinine Urine Urea Nitrogen 08/22/18 08/22/18 08/22/18 00:19 00:19 00:19 WBC RBC Hgb Hct MCV MCH MCHC RDW RDW Differential Plt Count MPV Immature Gran % (Auto) Neut % (Auto) Lymph % (Auto) Green % (Auto) Eos % (Auto) Baso % (Auto) Absolute Neuts (auto) Absolute Lymphs (auto) Total Counted Differential Comment Diff Path Review Platelet Estimate RBC Morphology PT INR Sodium Potassium Chloride Carbon Dioxide Anion Gap BUN Creatinine Estim Creat Clear Calc Est GFR (MDRD) Af Amer Est GFR (MDRD) Non-Af BUN/Creatinine Ratio Glucose Calcium Total Bilirubin Direct Bilirubin AST ALT Alkaline Phosphatase Troponin I Total Protein Albumin Globulin Lipase Vitamin B12 Urine Osmolality 378 Ur Random Sodium 41 Urine Creatinine Cancelled 63.50 Urine Urea Nitrogen 651 08/22/18 08/22/18 08/22/18 00:19 03:50 06:18 WBC RBC Hgb Hct MCV MCH MCHC RDW RDW Differential Plt Count MPV Immature Gran % (Auto) Neut % (Auto) Lymph % (Auto) Green % (Auto) Eos % (Auto) Baso % (Auto) Absolute Neuts (auto) Absolute Lymphs (auto) Total Counted Differential Comment Diff Path Review Platelet Estimate RBC Morphology PT INR Sodium 139 Potassium 3.7 Chloride 99 Carbon Dioxide 28.0 Anion Gap 12 BUN 107 H* Creatinine 6.26 H Estim Creat Clear Calc 11.05 Est GFR (MDRD) Af Amer 11 L Est GFR (MDRD) Non-Af 9 L BUN/Creatinine Ratio 17.1 Glucose 117 H Calcium 8.9 Total Bilirubin Direct Bilirubin AST ALT Alkaline Phosphatase Troponin I 0.194 H 0.192 H Total Protein Albumin Globulin Lipase Vitamin B12 Urine Osmolality Ur Random Sodium Cancelled Urine Creatinine Urine Urea Nitrogen 08/22/18 08/22/18 06:18 09:10 WBC RBC Hgb Hct MCV MCH MCHC RDW RDW Differential Plt Count MPV Immature Gran % (Auto) Neut % (Auto) Lymph % (Auto) Green % (Auto) Eos % (Auto) Baso % (Auto) Absolute Neuts (auto) Absolute Lymphs (auto) Total Counted Differential Comment Diff Path Review Platelet Estimate RBC Morphology PT INR Sodium Potassium Chloride Carbon Dioxide Anion Gap BUN Creatinine Estim Creat Clear Calc Est GFR (MDRD) Af Amer Est GFR (MDRD) Non-Af BUN/Creatinine Ratio Glucose Calcium Total Bilirubin Direct Bilirubin AST ALT Alkaline Phosphatase Troponin I 0.203 H Total Protein Albumin Globulin Lipase Vitamin B12 Pending Urine Osmolality Ur Random Sodium Urine Creatinine Urine Urea Nitrogen Assessment/Plan All Active Problems (Last Reviewed 08/22/18 @ 03:47 by Lavelle Robertson MD) Acute renal failure (Acute) Dehydration (Acute) Elevated liver enzymes (Acute) RAFAT (acute kidney injury) (Acute) Hyperalbuminemia (Acute) Atrial fibrillation with RVR (Acute) Hypotensive episode (Acute) 1-acute kidney injury and chronic kidney disease. Baseline creatinine seems around 1.5 mg deciliter. UA for this admission showed 100 protein, RBCs 10-25. Renal ultrasound was negative for hydronephrosis. Fe urea is 60%. Interesting renal etiology is more likely. Creatinine peaked at 6.7 mg/dL. Creatinine slightly better today at 6.26 with IV fluid. I will continue the same rate of IV fluid. Nephrotic syndrome needs to be ruled out with this urine finding I will order C3/C4,. ANOOP, ANCA, hepatitis panel, UPEP and SPEP. No indication for renal replacement therapy. Please avoid diuretics and ELVA inhibitor/ARB. Check renal function in the morning. 2-hypertension. Blood pressure is well controlled. Okay to continue IV fluids for now. 3-frequent falls. PT OT as per the primary service. Patient might need rehab placement at discharge. Thank you for the consult. We will continue to follow Please call if any question or concern at [phone]
[2018-08-22 17:34] LABS: Rheumatoid Factor < 10.0 IU/mL (<15)
[2018-08-22] MEDS: Atorvastatin Calcium 80 MG Tablet PO (21:22)
[2018-08-22] MEDS: prednisoLONE eye drops (5 mL) 1 DROP OPTH.BTL 1 DRP EACH EYE (21:23)
[2018-08-22] MEDS: Latanoprost 0.005% 1 Bottle 1 DRP EACH EYE (21:23)
[2018-08-23] VITALS (10 sets, daily range): BP systolic 106–125; BP diastolic 57–69; PULSE 59–63; RESP 16; TEMP 36.4–37.1; O2SAT 97–100
[2018-08-23] MEDS: 0.9% Normal Saline 1,000 ML 125 ML IV ×2 (06:42→15:15)
[2018-08-23 07:24] LABS: Albumin, Serum 2.6 g/dL (3.2-5.0); BUN 95 mg/dL (7-18); BUN/Creat Ratio 18.2 RATIO (10-20); Chloride 105 mmol/L (98-107); Creatinine, Serum 5.21 mg/dL (0.70-1.30); EST Glomerular Filtration Rate 12 mL/min (>60); Est Glom Filt Rate - Afr Amer 14 mL/min (>60); Estimated Creatinine Clearance 13.27 ml/min; Glucose 126 mg/dL (74-106); Phosphorus 4.6 mg/dL (2.5-4.9); Potassium 3.2 mmol/L (3.5-5.1); Sodium Level 138 mmol/L (136-145)
--- NOTE | 2018-08-23 07:25 | PN_ITS ---
Patient Problems: Active and Suspected Problems (Last Reviewed 08/22/18 @ 03:47 by Lavelle Robertson MD) Acute renal failure (Acute) Dehydration (Acute) Elevated liver enzymes (Acute) RAFAT (acute kidney injury) (Acute) Hyperalbuminemia (Acute) Subjective: Patient seen still appears weak and frail. No significant improvement in kidney function. Renal ultrasound demonstrated normal kidneys without hydronephrosis Objective: GENERAL: frail HEENT: Atraumatic; EYES; Anicteric, NECK; supple, normal thyroid, RESPIRATORY: Diminished to auscultation CARDIOVASCULAR: Regular S1 S2, systolic murmur GI: soft, non-tender, normoactive bowel sounds, : No Renal angle tenderness; EXTREMITIES: No edema, no clubbing, no cyanosis. MUSCULOSKELETAL: No Joint Tenderness; NEURO: Awake; no lateralizing signs. SKIN: Bruises on both upper and lower extremities PSYCH; flat affect Vitals/I&O's: Vital Signs Temp Pulse Resp BP Pulse Ox 98.7 F 62 16 106/59 L 97 08/23/18 02:42 08/23/18 07:07 08/23/18 02:42 08/23/18 02:42 08/23/18 02:42 Oxygen Delivery Method Room Air Weight: 76.6 kg Body Mass Index (BMI) 22.2 Finger Stick Blood Glucose 309 Intake and Output for Last 24 Hours 08/21/18 08/22/18 08/23/18 23:59 23:59 23:59 Intake Total 2867 / 2867 707 / 707 Output Total 600 / 600 1875 / 1875 550 / 550 Balance -600 / -600 992 / 992 157 / 157 Laboratory Results 08/22/18 06:18: Sodium 139, Potassium 3.7, Chloride 99, Carbon Dioxide 28.0, Anion Gap 12, BUN 107 H*, Creatinine 6.26 H, Estim Creat Clear Calc 11.05, Est GFR (MDRD) Af Amer 11 L, Est GFR (MDRD) Non-Af 9 L, BUN/Creatinine Ratio 17.1, Glucose 117 H, Calcium 8.9, Troponin I 0.192 H 08/22/18 09:10: Troponin I 0.203 H 08/22/18 16:44: Rheumatoid Factor < 10.0 08/22/18 16:44: ANOOP Screen Pending, MARCEL-1 Antibody Pending, SS-A/Ro IgG Antibody Pending, SS-B/La IgG Antibody Pending, Sm (English) Antibody Pending, ECOTHERAPIST Antibody Pending, Scl-70 Scleroderma Ab Pending, Double Strand DNA Ab Pending, Centromere B Antibody Pending 08/22/18 16:44: Ur Total Protein 24 Hr Pending, Urine Total Protein Pending, Urine Albumin Pending, U Ouwac-7-Nggodgll Pending, U Jjhgd-4-Mtsxmonr Pending, U Beta Globulin Pending, U Gamma Globulin Pending, c-ANCA Antibody Pending, p-ANCA Antibody Pending, Glomerular Base Memb Ab Pending, Complement C3 Pending, Complement C4 Pending 08/22/18 16:44: Total Protein (PEP) Pending, Albumin (PEP) Pending, Globulin (PEP) Pending, Albumin/Globulin (PEP) Pending, Lmkml-3-Dodppdwam Pending, Bnwcw-3-Lcpjfhcyk Pending, Beta Globulins Pending, Gamma Globulins Pending, M- Rohan Pending 08/23/18 07:04: Sodium 138, Potassium 3.2 L, Chloride 105, Carbon Dioxide 27.0, BUN 95 H, Creatinine 5.21 H, Estim Creat Clear Calc 13.27, Est GFR (MDRD) Af Amer 14 L, Est GFR (MDRD) Non-Af 12 L, BUN/Creatinine Ratio 18.2, Glucose 126 H, Calcium 8.0 L, Phosphorus 4.6, Albumin 2.6 L Current Medications [facility] Last Admin: 08/22/18 08:52 Dose: 200 mg Documented by: Atorvastatin Calcium (Lipitor) 80 mg PO QHS [facility] Last Admin: 08/22/18 21:22 Dose: 80 mg Documented by: Dextrose (D50w Syringe) 0 gm IV X1 PRN; Protocol PRN Reason: Hypoglycemia Gabap[facility]ontin) [facility] Last Admin: 08/22/18 15:05 Dose: 100 mg Documented by: Glucagon () 1 mg IM .X1 PRN PRN Reason: Hypoglycemia Sodium Chloride () 250 mls @ 15 mls/hr IV .[id number] PRN PRN Reason: SALINE FLUSH Sodium Chloride () 1,000 mls @ 125 mls/hr IV .Q8H [facility] Stop: 08/23/18 18:54 Last Admin: 08/23/18 06:42 Dose: 125 mls/hr Documented by: Latanoprost (Xalatan Opthalmic) 1 drop EACH EYE QHS [facility] Last Admin: 08/22/18 21:23 Dose: 1 drop Documented by: Nutritional Formula (Lactose Free) (Glucerna Shake) 120 ml PO 4X/DAY [facility] Last Admin: 08/22/18 21:22 Dose: 120 ml Documented by: Ondansetron HCl (Zofran) 4 mg IV Q8H PRN PRN PRN Reason: NAUSEA/VOMITING Oxycodone HCl (Oxyir) 5 mg PO Q4H PRN PRN PRN Reason: Moderate Pain (4-6/10) Last Admin: 08/22/18 23:03 Dose: 5 mg Documented by: Prednisolone Acetate (Pred Forte Eye Drops (5 Ml)) 1 drop EACH EYE QHS [facility] Last Admin: 08/22/18 21:23 Dose: 1 drop Documented by: Rivaroxaban (Xarelto) 20 mg PO DAILY@1700 [facility] Last Admin: 08/22/18 15:05 Dose: 20 mg Documented by: Sodium Chloride () 10 - 40 ml IV UD PRN PRN Reason: SALINE FLUSH Last Admin: 08/21/18 23:36 Dose: 10 ml Documented by: Tamsulosin HCl (Flomax) 0.4 mg PO DAILY@1730 [facility] Last Admin: 08/22/18 15:05 Dose: 0.4 mg Documented by: Venlafaxine HCl (Effexor Xr) 150 mg PO DAILY [facility] Last Admin: 08/22/18 08:52 Dose: 150 mg Documented by: Medical Necessity - Tobacco Use Smoking Status: Never smoker Tobacco Use: Non-smoker Assessment/Plan All Active Problems (Last Reviewed 08/22/18 @ 03:47 by Lavelle Robertson MD) Acute renal failure (Acute) Dehydration (Acute) Elevated liver enzymes (Acute) RAFAT (acute kidney injury) (Acute) Hyperalbuminemia (Acute) Atrial fibrillation with RVR (Acute) Hypotensive episode (Acute) Patient is a 73-year-old gentleman with multiple comorbidities admitted to the emergency department with progressive generalized weakness and multiple falls. Patient was found to have markedly elevated BUN and creatinine. Creatinine admission was 6.71; patient had a creatinine of 1.26 on 08/13/2018. Admitted to a monitored bed for subsequent management 1. Acute kidney injury: Chelsea to be secondary to prerenal as well as medications. Patient was discharged home on 08/08/2018 with metformin as well as lisinopril. The offending medications discontinued on on admission, patient admitted to a monitored bed way where patient is being managed with IV fluids with subsequent monitoring of electrolytes. As part of patient management ordered renal ultrasound and consultation was placed to nephrology on admission ~08/23/2018 Patient seen still appears weak and frail. No significant improvement in kidney function. Renal ultrasound demonstrated normal kidneys without hydronephrosis. Patient was also seen in consultation by nephrology; Dr. Urrutia's notes and recommendations reviewed 2. Adult failure to thrive with multiple falls and extensive bruises requested for PT OT eval 3. Coronary artery disease with previous CABG and subsequent stent placement (CABG x2 (2004)-patient has a history of stent to RCA June 2004, CABG x2 with eden to LAD and free MARGAUX to OM 2 in June 2004, stent of proximal LAD June 2007) 4. Paroxysmal atrial fibrillation patient is on amiodarone as well as systemic anticoagulation with Xarelto. The patient underwent DC cardioversion on 08/07/2018 5. Hypertension-blood pressure controlled, home medications continued with dose adjustment as needed 6. Dyslipidemia-patient is on statin therapy, continued at home dose 7. Elevated troponin secondary to demand ischemia as a result of patient acute kidney injury 8. BPH patient is on Flomax 9. Depression patient is on SSRI 10. Sick sinus syndrome status post pacemaker placement 11. Diabetes mellitus type 2 patient on metformin discontinued in view of his impaired kidney function 12. Chronic kidney disease stage II-III with baseline creatinine of 1.2-1.4 13. Anemia secondary to anemia of chronic disorder monitoring H&H 14. Chronic systolic congestive heart failure secondary to ischemic cardiomyopathy with an ejection fraction of 35% based on echo obtain on 03/29/2018 15. DVT prophylaxis on Xarelto Code Visit Inpatient E&M: 99890 Subs Hosp L2
[2018-08-23] MEDS: Glucerna Shake 120 ML LIQUID PO ×2 (07:54→21:20)
[2018-08-23] MEDS: Amiodarone 200 MG Tablet PO (07:54)
[2018-08-23] MEDS: Venlafaxine XR 150 MG Capsule PO (07:54)
[2018-08-23] MEDS: Gabapentin 100 MG Capsule PO ×2 (07:54→15:18)
[2018-08-23] MEDS: oxyCODONE 5 MG Tablet PO ×3 (08:37→21:25)
[2018-08-23 10:19] LABS: Vitamin B12 560 pg/mL (211-911)
--- NOTE | 2018-08-23 10:56 | CASEMGMT ---
RN CM Note: Presentation: RAFAT, fall with multiple bruises, adult failure to thrive. 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 -Recent admission 08/07/18- for Afib with RVR. was also placed in SNF at this time while pt was in hospital. PCP: Dr. Riley Specialists: Dr. Urrutia, nephrology Preferred Pharmacy: [facility] Insurance: [facility] Prescription Benefit: yes LNOK: June Browning and Laurent BOOGIE Consult: PT is recommending SNF on dc. KEAGAN Bah updated and will see pt. DC PLAN: anticipate SNF on dc. Katelynn WYMAN RN ACM
--- NOTE | 2018-08-23 11:59 | CASEMGMT ---
Social Work Met with pt in room and introduced role of SW. Pt lives at home with his of whom he is the primary caregiver. When pt came into ED, pt was placed at [facility]. Pt states that he has not been getting around well at home and has had many falls recently. Pt and share a walker and a wheelchair. He states he has been primarily using WC and the walker. Pt denies having home health services or ever being in SNF. Pt children all live out of state and pt states his kids have been talking to pt and about remote computer terminal operator placement as they do not feel things are going well at home. Discussed Advanced directives with pt and he does not have a living will and health care POA. SW offered to assist and pt is not up for it at this time. Written information provided to Pt about completing advance directives as an outpatient. SW and pt had length discussion about d/c plan and options provided. If SNF needed, pt would like to go to the [facility] where his is residing. Pt uncertain at this time if he will need SNF. SW reviewed therapy notes with pt and difficulty with functionality. Pt agreeable for SW to make referral to [facility] and would like SW to stop back after he has had time to consider options. Referral made to Madeline at the [facility]. Beds are available. Referral faxed and will await determination if they can accept pt. MAXIMO Sauer
--- NOTE | 2018-08-23 14:14 | CASEMGMT ---
Social Work Return phone call from [facility] and they are able to accept pt as early as Sunday. KEAGAN met with pt and informed of this and pt is agreeable to transfer to the [facility] when medically ready. With pt permission, KEAGAN called pt son Jaspal and informed of discharge plan, and he is agreeable with this. HENS 7000 completed and Green sheet placed on chart in the event pt discharges over the weekend. Plan: [facility], can accept no earlier than Sunday MAXIMO Sauer
[2018-08-23] MEDS: Tamsulosin HCl 0.4 MG Capsule PO (15:18)
[2018-08-23] MEDS: Rivaroxaban 20 MG Tablet PO (15:18)
[2018-08-23] MEDS: Latanoprost 0.005% 1 Bottle 1 DRP EACH EYE (21:16)
[2018-08-23] MEDS: Atorvastatin Calcium 80 MG Tablet PO (21:19)
[2018-08-23] MEDS: prednisoLONE eye drops (5 mL) 1 DROP OPTH.BTL 1 DRP EACH EYE (21:22)
[2018-08-24] VITALS (12 sets, daily range): BP systolic 113–137; BP diastolic 58–66; PULSE 58–62; RESP 16–20; TEMP 36.8–37.1; O2SAT 96–100
[2018-08-24] MEDS: oxyCODONE 5 MG Tablet PO ×5 (02:43→21:56)
[2018-08-24] MEDS: Venlafaxine XR 150 MG Capsule PO (08:35)
[2018-08-24] MEDS: Amiodarone 200 MG Tablet PO (08:35)
[2018-08-24] MEDS: Gabapentin 100 MG Capsule PO ×2 (08:35→17:37)
[2018-08-24] MEDS: Glucerna Shake 120 ML LIQUID PO ×4 (08:36→21:56)
--- NOTE | 2018-08-24 10:12 | PCM.PN.HOSP ---
Patient Problems: Active and Suspected Problems (Last Reviewed 08/22/18 @ 03:47 by Lavelle Robertson MD) Acute renal failure (Acute) Dehydration (Acute) Elevated liver enzymes (Acute) RAFAT (acute kidney injury) (Acute) Hyperalbuminemia (Acute) Subjective: Patient's overall clinical condition continues to improve. His hemoglobin however did drop to 8.7 Objective: GENERAL: frail HEENT: Atraumatic; EYES; Anicteric, NECK; supple, normal thyroid, RESPIRATORY: Diminished to auscultation CARDIOVASCULAR: Regular S1 S2, systolic murmur GI: soft, non-tender, normoactive bowel sounds, : No Renal angle tenderness; EXTREMITIES: No edema, no clubbing, no cyanosis. MUSCULOSKELETAL: No Joint Tenderness; NEURO: Awake; no lateralizing signs. SKIN: Bruises on both upper and lower extremities PSYCH; flat affect Vitals/I&O's: Vital Signs Temp Pulse Resp BP Pulse Ox 98.5 F 60 16 113/58 L 98 08/24/18 08:30 08/24/18 08:30 08/24/18 08:30 08/24/18 08:30 08/24/18 08:30 Oxygen Delivery Method Room Air Weight: 76.6 kg Body Mass Index (BMI) 22.2 Finger Stick Blood Glucose 309 Intake and Output for Last 24 Hours 08/22/18 08/23/18 08/24/18 23:59 23:59 23:59 Intake Total 2867 / 2867 2267 / 2902 1285 / 1285 Output Total 1875 / 1875 1775 / 2500 1700 / 1700 Balance 992 / 992 492 / 402 -415 / -415 Microbiology Past 72 Hours 08/21/18 15:50 Urine, Clean Catch Urine Culture - Final Culture exhibits no growth. Laboratory Results 08/22/18 06:18: Vitamin B12 560 08/22/18 16:44: Ur Total Protein 24 Hr Cancelled, Urine Total Protein Cancelled, Urine Albumin Cancelled, U Hftow-5-Juhfsswo Cancelled, U Wjbed-6-Epnlgtpl Cancelled, U Beta Globulin Cancelled, U Gamma Globulin Cancelled, U PEP M-Rohan Cancelled, U PEP M-Rohan 24 Hr Cancelled, Urine Immunofixation Cancelled, Urine VIDAL Interpret Cancelled, Ur Immunofix PEP Note Cancelled Current Medications [facility] Admin: 08/24/18 08:35 Dose: 200 mg Documented by: Atorvastatin Calcium (Lipitor) 80 mg PO QHS [facility] Last Admin: 08/23/18 21:19 Dose: 80 mg Documented by: Dextrose (D50w Syringe) 0 gm IV X1 PRN; Protocol PRN Reason: Hypoglycemia Gabapentin (Neurontin) [facility] Last Admin: 08/24/18 08:35 Dose: 100 mg Documented by: Glucagon () 1 mg IM .X1 PRN PRN Reason: Hypoglycemia Sodium Chloride () 250 mls @ 15 mls/hr IV .[id number] PRN PRN Reason: SALINE FLUSH Latanoprost (Xalatan Opthalmic) [facility] Last Admin: 08/23/18 21:16 Dose: 1 drop Documented by: Nutritional Formula (Lactose Free) (Glucerna Shake) 120 ml PO 4X/DAY [facility] Last Admin: 08/24/18 08:36 Dose: 120 ml Documented by: Ondansetron HCl (Zofran) 4 mg IV Q8H PRN PRN PRN Reason: NAUSEA/VOMITING Oxycodone HCl (Oxyir) 5 mg PO Q4H PRN PRN PRN Reason: Moderate Pain (4-6/10) Last Admin: 08/24/18 08:35 Dose: 5 mg Documented by: Prednisolone Acetate (Pred Forte Eye Drops (5 Ml)) 1 drop EACH EYE QHS [facility] Last Admin: 08/23/18 21:22 Dose: 1 drop Documented by: Rivaroxaban (Xarelto) 20 mg PO DAILY@1700 [facility] Last Admin: 08/23/18 15:18 Dose: 20 mg Documented by: Sodium Chloride () 10 - 40 ml IV UD PRN PRN Reason: SALINE FLUSH Last Admin: 08/21/18 23:36 Dose: 10 ml Documented by: Tamsulosin HCl (Flomax) 0.4 mg PO DAILY@1730 [facility] Last Admin: 08/23/18 15:18 Dose: 0.4 mg Documented by: Venlafaxine HCl (Effexor Xr) 150 mg PO DAILY [facility] Last Admin: 08/24/18 08:35 Dose: 150 mg Documented by: Medical Necessity - Tobacco Use Smoking Status: Never smoker Tobacco Use: Non-smoker Assessment/Plan All Active Problems (Last Reviewed 08/22/18 @ 03:47 by Lavelle Robertson MD) Acute renal failure (Acute) Dehydration (Acute) Elevated liver enzymes (Acute) RAFAT (acute kidney injury) (Acute) Hyperalbuminemia (Acute) Atrial fibrillation with RVR (Acute) Hypotensive episode (Acute) Patient is a 73-year-old gentleman with multiple comorbidities admitted to the emergency department with progressive generalized weakness and multiple falls. Patient was found to have markedly elevated BUN and creatinine. Creatinine admission was 6.71; patient had a creatinine of 1.26 on 08/13/2018. Admitted to a monitored bed for subsequent management 1. Acute kidney injury: Chelsea to be secondary to prerenal as well as medications. Patient was discharged home on 08/08/2018 with metformin as well as lisinopril. The offending medications discontinued on on admission, patient admitted to a monitored bed way where patient is being managed with IV fluids with subsequent monitoring of electrolytes. As part of patient management ordered renal ultrasound and consultation was placed to nephrology on admission ~08/23/2018 Patient seen still appears weak and frail. No significant improvement in kidney function. Renal ultrasound demonstrated normal kidneys without hydronephrosis. Patient was also seen in consultation by nephrology; Dr. Urrutia's notes and recommendations reviewed ~ 08/24/2018: Patient kidney function continues to improve 2. Adult failure to thrive with multiple falls and extensive bruises requested for PT OT eval ~ 08/24/2018: Plan is for patient to be discharged to a assisted facility ([facility]) once he is medically stable 3. Coronary artery disease with previous CABG and subsequent stent placement (CABG x2 (2004)-patient has a history of stent to RCA June 2004, CABG x2 with eden to LAD and free MARGAUX to OM 2 in June 2004, stent of proximal LAD June 2007) 4. Paroxysmal atrial fibrillation patient is on amiodarone as well as systemic anticoagulation with Xarelto. The patient underwent DC cardioversion on 08/07/2018 5. Hypertension-blood pressure controlled, home medications continued with dose adjustment as needed 6. Dyslipidemia-patient is on statin therapy, continued at home dose 7. Elevated troponin secondary to demand ischemia as a result of patient acute kidney injury 8. BPH patient is on Flomax 9. Depression patient is on SSRI 10. Sick sinus syndrome status post pacemaker placement 11. Diabetes mellitus type 2 patient on metformin discontinued in view of his impaired kidney function 12. Chronic kidney disease stage II-III with baseline creatinine of 1.2-1.4 13. Anemia secondary to anemia of chronic disorder monitoring H&H 14. Chronic systolic congestive heart failure secondary to ischemic cardiomyopathy with an ejection fraction of 35% based on echo obtain on 03/29/2018 15. DVT prophylaxis on Xarelto 16. Anemia secondary to anemia of chronic disorder monitoring H&H with plans to transfuse if patient becomes symptomatic or hemoglobin falls below 7 Code Visit Inpatient E&M: 68393 Subs Hosp L2
[2018-08-24 11:57] LABS: Absolute Lymphocyte Count 0.38 X10^3/ul (0.83-4.51); Absolute Neutrophil Count 3.6 X10^3/uL (2.0-7.7); Eosinophil# 0.13 X10^3/uL; Eosinophils% 2.8 % (0-5); Hematocrit 27.9 % (40-54); Hemoglobin 8.7 g/dl (13.0-16.5); Lymphocyte # 0.38 X10^3/ul (4.0); Lymphocyte % 8.1 % (19-41); Mean Corp Hgb Conc 31.2 g/gl (32-36); Mean Corpuscular Hgb 29.7 pg (27.0-32.0); Mean Corpuscular Volume 95.2 fL (80-94); Mean Platelet Vol. 10.3 fl (6.2-12.0); Monocyte# 0.63 X10^3/uL; Monocyte% 13.4 % (0-10); Neutrophil # 3.56 X10^3/uL (2.7-7.7); Neutrophil % 75.7 % (47-70); Platelet Count 147 K/mm3 (150-450); RBC Distribution Width CV 16.9 % (11.6-14.6); RBC Distribution Width SD 55.8 fl (35.1-43.9); Red Blood Count 2.93 M/mm3 (4.6-6.2); White Blood Count 4.7 K/mm3 (4.4-11.0)
[2018-08-24 11:58] LABS: Differential Indicated SCAN CRITERIA MET; POSITIVE COUNT NO; POSITIVE DIFFERENTIAL YES; POSITIVE MORPHOLOGY NO
[2018-08-24 12:12] LABS: Differential Comment SCANNED
[2018-08-24 12:18] LABS: Anion Gap 5 (5-15); BUN 77 mg/dL (7-18); BUN/Creat Ratio 18.6 RATIO (10-20); Chloride 105 mmol/L (98-107); Creatinine, Serum 4.13 mg/dL (0.70-1.30); EST Glomerular Filtration Rate 15 mL/min (>60); Est Glom Filt Rate - Afr Amer 18 mL/min (>60); Estimated Creatinine Clearance 16.74 ml/min; Glucose 107 mg/dL (74-106); Magnesium 1.8 mg/dL (1.6-2.6); Potassium 3.3 mmol/L (3.5-5.1); Sodium Level 138 mmol/L (136-145)
[2018-08-24] MEDS: 0.9% NaCl Peripheral Flush Adult/Peds IV (14:35)
[2018-08-24] MEDS: 0.9% Normal Saline 1,000 ML 75 ML IV (14:35)
[2018-08-24] MEDS: Rivaroxaban 20 MG Tablet PO (17:37)
[2018-08-24] MEDS: Tamsulosin HCl 0.4 MG Capsule PO (17:37)
--- NOTE | 2018-08-24 18:18 | PCM.PN.REN ---
Patient Problems: Active and Suspected Problems (Last Reviewed 08/22/18 @ 03:47 by Lavelle Robertson MD) Acute renal failure (Acute) Dehydration (Acute) Elevated liver enzymes (Acute) RAFAT (acute kidney injury) (Acute) Hyperalbuminemia (Acute) Subjective: Doing well. denied nausea/vomiting No SOB. No CP - Physical Exam General: Alert, Oriented x3 HEENT: PERRLA, EOMI Oral: Moist Mucosa Neck: Supple, No JVD Lungs: Clear to auscultation, Normal air movement, No rhonchi, No wheeze Cardiovascular: Regular rate, Regular Rhythm, Normal S1, Normal S2 Abdomen: Bowel Sounds Present, Soft, Non Tender, Non-Distended Extremities: No clubbing, Edema - +1 edema of LE Musculoskeletal: No Tenderness to Palpation of Joints or Extremities Lymphatic: No Cervical, Supraclavicular, or Inguinal Adenopathy Neurological: Cranial nerves II-XII grossly intact, Neuro grossly intact Psych/Mental Status: Appropriate Vital Signs Temp Pulse Resp BP Pulse Ox 98.4 F 61 18 115/62 98 08/24/18 14:30 08/24/18 15:15 08/24/18 14:30 08/24/18 14:30 08/24/18 14:30 Oxygen Delivery Method Room Air Weight: 76.6 kg Body Mass Index (BMI) 22.2 Finger Stick Blood Glucose 309 Intake and Output for Last 24 Hours 08/22/18 08/23/18 08/24/18 23:59 23:59 23:59 Intake Total 2867 / 2867 2267 / 2902 2015 Output Total 1875 / 1875 1775 / 2500 3850 / 3850 Balance 992 / 992 492 / 402 -1834 / -1834 Microbiology Past 72 Hours 08/21/18 15:50 Urine Culture - Final Urine, Clean Catch Culture exhibits no growth. Laboratory Tests Past 24 Hrs 08/22/18 08/24/18 08/24/18 16:44 11:40 11:40 WBC 4.7 RBC 2.93 L Hgb 8.7 L Hct 27.9 L MCV 95.2 H MCH 29.7 MCHC 31.2 L RDW 16.9 H RDW Differential 55.8 H Plt Count 147 L MPV 10.3 Immature Gran % (Auto) 0.000 Neut % (Auto) 75.7 H Lymph % (Auto) 8.[address] [place] % (Auto) 13.4 H Eos % (Auto) 2.8 Baso % (Auto) 0.0 Absolute Neuts (auto) 3.6 Absolute Lymphs (auto) 0.38 L Total Counted Not Reportable Differential Comment SCANNED Sodium 138 Potassium 3.3 L Chloride 105 Carbon Dioxide 28.0 Anion Gap 5 BUN 77 H Creatinine 4.13 H Estim Creat Clear Calc 16.74 Est GFR (MDRD) Af Amer 18 L Est GFR (MDRD) Non-Af 15 L BUN/Creatinine Ratio 18.6 Glucose 107 H Calcium 8.0 L Magnesium 1.8 Ur Total Protein 24 Hr Cancelled Urine Total Protein Cancelled Urine Albumin Cancelled U Meyou-4-Ayflxfet Cancelled U Heokd-8-Oxwkzhoh Cancelled U Beta Globulin Cancelled U Gamma Globulin Cancelled U PEP M-Rohan Cancelled U PEP M-Rohan 24 Hr Cancelled Urine Immunofixation Cancelled Urine VIDAL Interpret Cancelled Ur Immunofix PEP Note Cancelled Medical Necessity - Tobacco Use Smoking Status: Never smoker Tobacco Use: Non-smoker Assessment/Plan All Active Problems (Last Reviewed 08/22/18 @ 03:47 by Lavelle Robertson MD) Acute renal failure (Acute) Dehydration (Acute) Elevated liver enzymes (Acute) RAFAT (acute kidney injury) (Acute) Hyperalbuminemia (Acute) Atrial fibrillation with RVR (Acute) Hypotensive episode (Acute) 1-acute kidney injury and chronic kidney disease. Baseline creatinine seems around 1.5 mg deciliter. UA for this admission showed 100 protein, RBCs 10-25. Renal ultrasound was negative for hydronephrosis. Kidney function improved with IVF Creatinine peaked at 6.7 mg/dL. Creatinine today 4.1 mg/dL I will continue the same rate of IV fluid. Nephritic syndrome needs to be ruled out with this urine finding .C3/C4,. ANOOP, ANCA, hepatitis panel, UPEP and SPEP are pending No indication for renal replacement therapy. Please avoid diuretics and ELVA inhibitor/ARB. Check renal function in the morning. 2-hypertension. Blood pressure is well controlled. Okay to continue IV fluids for now. 3-frequent falls. PT OT as per the primary service. Patient might need rehab placement at discharge. We will continue to follow Please call if any question or concern at [phone]
[2018-08-24] MEDS: Atorvastatin Calcium 80 MG Tablet PO (21:56)
[2018-08-24] MEDS: prednisoLONE eye drops (5 mL) 1 DROP OPTH.BTL 1 DRP EACH EYE (21:58)
[2018-08-24] MEDS: Latanoprost 0.005% 1 Bottle 1 DRP EACH EYE (21:58)
[2018-08-25] VITALS (8 sets, daily range): BP systolic 121–127; BP diastolic 62–76; PULSE 60–63; RESP 16–19; TEMP 36.7–36.9; O2SAT 96–99
[2018-08-25] MEDS: 0.9% Normal Saline 1,000 ML 75 ML IV ×2 (01:06→13:43)
[2018-08-25 07:22] LABS: Anion Gap 5 (5-15); BUN 66 mg/dL (7-18); BUN/Creat Ratio 19.5 RATIO (10-20); Chloride 109 mmol/L (98-107); Creatinine, Serum 3.39 mg/dL (0.70-1.30); EST Glomerular Filtration Rate 19 mL/min (>60); Est Glom Filt Rate - Afr Amer 23 mL/min (>60); Glucose 97 mg/dL (74-106); Potassium 3.7 mmol/L (3.5-5.1); Sodium Level 139 mmol/L (136-145)
[2018-08-25 07:23] LABS: Absolute Lymphocyte Count 0.51 X10^3/ul (0.83-4.51); Absolute Neutrophil Count 3.6 X10^3/uL (2.0-7.7); Eosinophil# 0.16 X10^3/uL; Eosinophils% 3.3 % (0-5); Hematocrit 25.9 % (40-54); Hemoglobin 8.3 g/dl (13.0-16.5); Lymphocyte # 0.51 X10^3/ul (4.0); Lymphocyte % 10.5 % (19-41); Mean Corpuscular Hgb 30.1 pg (27.0-32.0); Mean Corpuscular Volume 93.8 fL (80-94); Mean Platelet Vol. 10.6 fl (6.2-12.0); Monocyte# 0.61 X10^3/uL; Monocyte% 12.6 % (0-10); Neutrophil # 3.57 X10^3/uL (2.7-7.7); Neutrophil % 73.4 % (47-70); Platelet Count 159 K/mm3 (150-450); RBC Distribution Width CV 17.4 % (11.6-14.6); RBC Distribution Width SD 59.6 fl (35.1-43.9); Red Blood Count 2.76 M/mm3 (4.6-6.2); White Blood Count 4.9 K/mm3 (4.4-11.0)
[2018-08-25 07:25] LABS: Differential Indicated SCAN CRITERIA MET; POSITIVE COUNT NO; POSITIVE DIFFERENTIAL YES; POSITIVE MORPHOLOGY NO
[2018-08-25] MEDS: Glucerna Shake 120 ML LIQUID PO ×4 (08:54→21:04)
[2018-08-25] MEDS: Gabapentin 100 MG Capsule PO ×2 (08:55→16:59)
[2018-08-25] MEDS: Venlafaxine XR 150 MG Capsule PO (08:55)
[2018-08-25] MEDS: Amiodarone 200 MG Tablet PO (08:55)
[2018-08-25 08:57] LABS: Differential Comment SCANNED
--- NOTE | 2018-08-25 11:47 | PCM.PROGNOTE ---
<Lulu Lindo - Last Filed: 08/25/18 12:05> Patient Problems: Active and Suspected Problems (Last Reviewed 08/22/18 @ 03:47 by Lavelle Robertson MD) Acute renal failure (Acute) Dehydration (Acute) Elevated liver enzymes (Acute) RAFAT (acute kidney injury) (Acute) Hyperalbuminemia (Acute) Subjective: Patient seen and examined. Feels improved. Denies current complaints. Plan for discharge to [place], SNF possibly tomorrow. - Physical Exam General: Alert, Oriented x3, Cooperative HEENT: Atraumatic, PERRLA, EOMI, Normocephalic Neck: Supple, No JVD, Negative Carotid Bruits Lungs: Clear to auscultation, Normal air movement Cardiovascular: Regular rate, Regular Rhythm, Normal S1, Normal S2, No murmurs, - - AV paced Abdomen: Bowel Sounds Present, Soft, Non Tender, Non-Distended Extremities: No clubbing, No cyanosis, No edema, Capillary Refill Less than 3 Seconds Skin: No rashes, No breakdown Musculoskeletal: No Tenderness to Palpation of Joints or Extremities Neurological: Cranial nerves II-XII grossly intact, Neuro grossly intact Psych/Mental Status: Flat Affect Vital Signs Temp Pulse Resp BP Pulse Ox 98.0 F 61 18 121/67 H 97 08/25/18 09:00 08/25/18 11:00 08/25/18 09:00 08/25/18 09:00 08/25/18 09:00 Oxygen Delivery Method Room Air Weight: 168 lb 13.985 oz Body Mass Index (BMI) 22.2 Finger Stick Blood Glucose 309 Intake and Output for Last 24 Hours 08/23/18 08/24/18 08/25/18 23:59 23:59 23:59 Intake Total 2267 / 2902 3107 / 3107 460 / 460 Output Total 1775 / 2500 4500 / 4500 650 / 650 Balance 492 / 402 -1393 / -1393 -190 / -190 Microbiology Past 72 Hours 08/21/18 15:50 Urine Culture - Final Urine, Clean Catch Culture exhibits no growth. Laboratory Tests Past 24 Hrs 08/24/18 08/24/18 08/25/18 11:40 11:40 02:00 WBC 4.7 RBC 2.93 L Hgb 8.7 L Hct 27.9 L MCV 95.2 H MCH 29.7 MCHC 31.2 L RDW 16.9 H RDW Differential 55.8 H Plt Count 147 L MPV 10.3 Immature Gran % (Auto) 0.000 Neut % (Auto) 75.7 H Lymph % (Auto) 8.1 L [place] % (Auto) 13.4 H Eos % (Auto) 2.8 Baso % (Auto) 0.0 Absolute Neuts (auto) 3.6 Absolute Lymphs (auto) 0.38 L Total Counted Not Reportable Differential Comment SCANNED Sodium 138 Potassium 3.3 L Chloride 105 Carbon Dioxide 28.0 Anion Gap 5 BUN 77 H Creatinine 4.13 H Estim Creat Clear Calc 16.74 Est GFR (MDRD) Af Amer 18 L Est GFR (MDRD) Non-Af 15 L BUN/Creatinine Ratio 18.6 Glucose 107 H Calcium 8.0 L Magnesium 1.8 Ur Total Protein 24 Hr Pending Urine Total Protein Pending Urine Albumin Pending U Yjbkn-9-Hxrhtbgo Pending U Ircki-3-Gfenkkyx Pending U Beta Globulin Pending U Gamma Globulin Pending 08/25/18 08/25/18 05:52 05:52 WBC 4.9 RBC 2.76 L Hgb 8.3 L Hct 25.9 L MCV 93.8 MCH 30.1 MCHC 32.0 RDW 17.4 H RDW Differential 59.6 H Plt Count 159 MPV 10.6 Immature Gran % (Auto) 0.200 Neut % (Auto) 73.4 H Lymph % (Auto) 10.5 L [place] % (Auto) 12.6 H Eos % (Auto) 3.3 Baso % (Auto) 0.0 Absolute Neuts (auto) 3.6 Absolute Lymphs (auto) 0.51 L Total Counted Not Reportable Differential Comment SCANNED Sodium 139 Potassium 3.7 Chloride 109 H Carbon Dioxide 25.0 Anion Gap 5 BUN 66 H Creatinine 3.39 H Estim Creat Clear Calc 20.40 Est GFR (MDRD) Af Amer 23 L Est GFR (MDRD) Non-Af 19 L BUN/Creatinine Ratio 19.5 Glucose 97 Calcium 8.0 L Magnesium Ur Total Protein 24 Hr Urine Total Protein Urine Albumin U Shxxs-2-Vsfqidkr U Dhzng-6-Bzicgnjn U Beta Globulin U Gamma Globulin Medical Necessity - Tobacco Use Smoking Status: Never smoker Tobacco Use: Non-smoker Assessment/Plan All Active Problems (Last Reviewed 08/22/18 @ 03:47 by Lavelle Robertson MD) Acute renal failure (Acute) Dehydration (Acute) Elevated liver enzymes (Acute) RAFAT (acute kidney injury) (Acute) Hyperalbuminemia (Acute) Atrial fibrillation with RVR (Acute) Hypotensive episode (Acute) 1. Acute kidney injury on chronic kidney disease stage III-nephrology following. Renal ultrasound showed normal kidneys without hydronephrosis. Metformin, lisinopril and diuretic regimen on hold. Kidney function improving. Labs pending to rule out nephrotic syndrome. Trend BMP. 2. Elevated troponin-suspected demand ischemia as result of #1. Denies chest pain. EKG without acute ischemia. 3. Paroxysmal atrial fibrillation-Follows with Dr. Fong. Continue amiodarone, Xarelto regimen. Recent cardioversion 08/07/2018. 4. CAD status post PTCA/stent and CABG x2 (2004)-patient has a history of stent to RCA June 2004, CABG x2 with [place] to LAD and free MARGAUX to OM 2 in June 2004, stent of proximal LAD June 2007. Continue Xarelto, statin. 5. Chronic systolic CHF, ischemic cardiomyopathy-no acute exacerbation. Echo March 2017 with EF 35%, moderate global left ventricular systolic dysfunction improved from prior echo. 6. History of sick sinus syndrome status post pacemaker 7. Type 2 diabetes mellitus-metformin regimen on hold. Recommend discontinuing going forward. Prior hemoglobin A1c 6.3%. Recommend carb control diet. 8. Hypertension-stable, continue current regimen. 9. Hyperlipidemia-continue statin. 10. Chronic normocytic anemia-hemoglobin decreased from baseline. Trend CBC. 11. Anxiety and depression-continue home venlafaxine regimen. 12. BPH-continue Flomax regimen. 13. Failure to thrive/severe protein calorie malnutrition-dietitian consult. Recent unintended weight loss, poor oral intake. DVT prophylaxis-Xarelto Discharge planning: [facility], SNF at discharge when medically stable. This patient was seen by NAWAF Cloud under the supervision of Dr. Sandoval. <Jack Sandoval - Last Filed: 08/25/18 13:00> - Physical Exam Vital Signs Temp Pulse Resp BP Pulse Ox 98.0 F 61 18 121/67 H 97 08/25/18 09:00 08/25/18 11:00 08/25/18 09:00 08/25/18 09:00 08/25/18 09:00 Oxygen Delivery Method Room Air Weight: 76.6 kg Body Mass Index (BMI) 22.2 Finger Stick Blood Glucose 309 Intake and Output for Last 24 Hours 08/23/18 08/24/18 08/25/18 23:59 23:59 23:59 Intake Total 2267 / 2902 3107 / 3107 1310 / 1310 Output Total 1775 / 2500 4500 / 4500 1100 / 1100 Balance 492 / 402 -1393 / -1393 210 / 210 Microbiology Past 72 Hours 08/21/18 15:50 Urine Culture - Final Urine, Clean Catch Culture exhibits no growth. Laboratory Tests Past 24 Hrs 08/25/18 08/25/18 08/25/18 02:00 05:52 05:52 WBC 4.9 RBC 2.76 L Hgb 8.3 L Hct 25.9 L MCV 93.8 MCH 30.1 MCHC 32.0 RDW 17.4 H RDW Differential 59.6 H Plt Count 159 MPV 10.6 Immature Gran % (Auto) 0.200 Neut % (Auto) 73.4 H Lymph % (Auto) 10.5 L [place] % (Auto) 12.6 H Eos % (Auto) 3.3 Baso % (Auto) 0.0 Absolute Neuts (auto) 3.6 Absolute Lymphs (auto) 0.51 L Total Counted Not Reportable Differential Comment SCANNED Sodium 139 Potassium 3.7 Chloride 109 H Carbon Dioxide 25.0 Anion Gap 5 BUN 66 H Creatinine 3.39 H Estim Creat Clear Calc 20.40 Est GFR (MDRD) Af Amer 23 L Est GFR (MDRD) Non-Af 19 L BUN/Creatinine Ratio 19.5 Glucose 97 Calcium 8.0 L Ur Total Protein 24 Hr Pending Urine Total Protein Pending Urine Albumin Pending U Vwhyy-6-Lpodeucv Pending U Qcejb-1-Zxlweavb Pending U Beta Globulin Pending U Gamma Globulin Pending Assessment/Plan This patient was seen in conjunction with NAWAF Cloud . I have independently interviewed and examined the patient and reviewed pertinent historical, laboratory, and other data. Please refer to NAWAF Cloud note for details of this patient's presentation, findings, and recommendations. I have reviewed NAWAF Cloud note and concur with documented findings. In brief, patient is a 73-year-old gentleman with multiple comorbidities admitted to the emergency department with progressive generalized weakness and multiple falls. Patient was found to have markedly elevated BUN and creatinine. Creatinine admission was 6.71; patient had a creatinine of 1.26 on 08/13/2018. Admitted to a monitored bed for subsequent management 08/25/2018 patient kidney function continues to improve. Patient's son with cell phone [phone] (a urologist in [place] expects Daily update) updated the day prior. Physical Examination: GENERAL: frail HEENT: Atraumatic; EYES; Anicteric, NECK; supple, normal thyroid, RESPIRATORY: Diminished to auscultation CARDIOVASCULAR: Regular S1 S2, systolic murmur GI: soft, non-tender, normoactive bowel sounds, : No Renal angle tenderness; EXTREMITIES: No edema, no clubbing, no cyanosis. MUSCULOSKELETAL: No Joint Tenderness; NEURO: Awake; no lateralizing signs. SKIN: Bruises on both upper and lower extremities PSYCH; flat affect Assessment: 1. Acute kidney injury: 2. Adult failure to thrive with multiple falls 3. Coronary artery disease with previous CABG and subsequent stent placement (CABG x2 (2004)-patient has a history of stent to RCA June 2004, CABG x2 with [place] to LAD and free MARGAUX to OM 2 in June 2004, stent of proximal LAD June 2007) 4. Paroxysmal atrial fibrillation patient is on amiodarone as well as systemic anticoagulation with Xarelto. The patient underwent DC cardioversion on 08/07/2018 5. Hypertension-blood pressure controlled, home medications continued with dose adjustment as needed 6. Dyslipidemia-patient is on statin therapy, continued at home dose 7. Elevated troponin secondary to demand ischemia as a result of patient acute kidney injury 8. BPH patient is on Flomax 9. Depression patient is on SSRI 10. Sick sinus syndrome status post pacemaker placement 11. Diabetes mellitus type 2 patient on metformin discontinued in view of his impaired kidney function 12. Chronic kidney disease stage II-III with baseline creatinine of 1.2-1.4 13. Anemia secondary to anemia of chronic disorder monitoring H&H 14. Chronic systolic congestive heart failure secondary to ischemic cardiomyopathy with an ejection fraction of 35% based on echo obtain on 03/29/2018 15. DVT prophylaxis on Xarelto 16. Anemia secondary to anemia of chronic disorder monitoring H&H with plans to transfuse if patient becomes symptomatic or hemoglobin falls below 7 Recommendations: 1. I have discussed the results of my overview and impressions with the patient 2. Options for management were reviewed Code Visit Inpatient E&M: 33817 Subs Hosp L2
--- NOTE | 2018-08-25 16:23 | PCM.PN.REN ---
Patient Problems: Active and Suspected Problems (Last Reviewed 08/22/18 @ 03:47 by Lavelle Robertson MD) Acute renal failure (Acute) Dehydration (Acute) Elevated liver enzymes (Acute) RAFAT (acute kidney injury) (Acute) Hyperalbuminemia (Acute) Subjective: Feeling well today No SOB. No nausea/vomiting No CP - Physical Exam General: Alert, Oriented x3 HEENT: PERRLA, EOMI Oral: Moist Mucosa Neck: Supple, No JVD Lungs: Clear to auscultation, Normal air movement, No rhonchi, No wheeze Cardiovascular: Regular rate, Regular Rhythm, Normal S1, Normal S2 Abdomen: Bowel Sounds Present, Soft, Non Tender Extremities: No clubbing, No cyanosis, No edema Skin: No rashes Musculoskeletal: No Tenderness to Palpation of Joints or Extremities Lymphatic: No Cervical, Supraclavicular, or Inguinal Adenopathy Neurological: Cranial nerves II-XII grossly intact, Neuro grossly intact Psych/Mental Status: Appropriate Vital Signs Temp Pulse Resp BP Pulse Ox 98.4 F 60 18 121/62 H 98 08/25/18 15:00 08/25/18 15:00 08/25/18 15:00 08/25/18 15:00 08/25/18 15:00 Oxygen Delivery Method Room Air Weight: 76.6 kg Body Mass Index (BMI) 22.2 Finger Stick Blood Glucose 309 Intake and Output for Last 24 Hours 08/23/18 08/24/18 08/25/18 23:59 23:59 23:59 Intake Total 2267 / 2902 3107 / 3107 1310 / 1310 Output Total 1775 / 2500 4500 / 4500 1100 / 1100 Balance 492 / 402 -1393 / -1393 210 / 210 Microbiology Past 72 Hours 08/21/18 15:50 Urine Culture - Final Urine, Clean Catch Culture exhibits no growth. Laboratory Tests Past 24 Hrs 08/25/18 08/25/18 08/25/18 02:00 05:52 05:52 WBC 4.9 RBC 2.76 L Hgb 8.3 L Hct 25.9 L MCV 93.8 MCH 30.1 MCHC 32.0 RDW 17.4 H RDW Differential 59.6 H Plt Count 159 MPV 10.6 Immature Gran % (Auto) 0.200 Neut % (Auto) 73.4 H Lymph % (Auto) 10.5 L [place] % (Auto) 12.6 H Eos % (Auto) 3.3 Baso % (Auto) 0.0 Absolute Neuts (auto) 3.6 Absolute Lymphs (auto) 0.51 L Total Counted Not Reportable Differential Comment SCANNED Sodium 139 Potassium 3.7 Chloride 109 H Carbon Dioxide 25.0 Anion Gap 5 BUN 66 H Creatinine 3.39 H Estim Creat Clear Calc 20.40 Est GFR (MDRD) Af Amer 23 L Est GFR (MDRD) Non-Af 19 L BUN/Creatinine Ratio 19.5 Glucose 97 Calcium 8.0 L Ur Total Protein 24 Hr Pending Urine Total Protein Pending Urine Albumin Pending U Ypqxv-3-Hivxomki Pending U Gvujp-4-Phxwodvd Pending U Beta Globulin Pending U Gamma Globulin Pending Medical Necessity - Tobacco Use Smoking Status: Never smoker Tobacco Use: Non-smoker Assessment/Plan All Active Problems (Last Reviewed 08/22/18 @ 03:47 by Lavelle Robertson MD) Acute renal failure (Acute) Dehydration (Acute) Elevated liver enzymes (Acute) RAFAT (acute kidney injury) (Acute) Hyperalbuminemia (Acute) Atrial fibrillation with RVR (Acute) Hypotensive episode (Acute) 1-acute kidney injury and chronic kidney disease. Baseline creatinine seems around 1.5 mg deciliter. UA for this admission showed 100 protein, RBCs 10-25. Renal ultrasound was negative for hydronephrosis. Kidney function improved with IVF Creatinine peaked at 6.7 mg/dL. Creatinine today 3.3 mg/dL I will continue the same rate of IV fluid. Nephritic syndrome needs to be ruled out with this urine finding .C3/C4,. ANOOP, ANCA, hepatitis panel, UPEP and SPEP are pending No indication for renal replacement therapy. Please avoid diuretics and ELVA inhibitor/ARB. Check renal function in the morning. 2-hypertension. Blood pressure is well controlled. Okay to continue IV fluids for now. 3-frequent falls. PT OT as per the primary service. Patient might need rehab placement at discharge. We will continue to follow Please call if any question or concern at [phone]
[2018-08-25] MEDS: Rivaroxaban 20 MG Tablet PO (16:59)
[2018-08-25] MEDS: Tamsulosin HCl 0.4 MG Capsule PO (17:00)
[2018-08-25] MEDS: prednisoLONE eye drops (5 mL) 1 DROP OPTH.BTL 1 DRP EACH EYE (21:04)
[2018-08-25] MEDS: Atorvastatin Calcium 80 MG Tablet PO (21:04)
[2018-08-25] MEDS: Latanoprost 0.005% 1 Bottle 1 DRP EACH EYE (21:05)
[2018-08-25] MEDS: BACITRACIN 15 GM Tube 1 APPLIC TOPICAL (21:13)
[2018-08-26] VITALS (9 sets, daily range): BP systolic 101–131; BP diastolic 56–67; PULSE 60–65; RESP 14–20; TEMP 37–37.7; O2SAT 95–99
[2018-08-26] MEDS: 0.9% Normal Saline 1,000 ML 75 ML IV ×2 (03:14→15:28)
[2018-08-26 06:25] LABS: Anion Gap 7 (5-15); BUN 58 mg/dL (7-18); BUN/Creat Ratio 20.1 RATIO (10-20); Calcium,Total 8.3 mg/dL (8.5-10.1); Chloride 110 mmol/L (98-107); Creatinine, Serum 2.88 mg/dL (0.70-1.30); EST Glomerular Filtration Rate 23 mL/min (>60); Est Glom Filt Rate - Afr Amer 28 mL/min (>60); Estimated Creatinine Clearance 24.01 ml/min; Glucose 98 mg/dL (74-106); Potassium 3.9 mmol/L (3.5-5.1); Sodium Level 142 mmol/L (136-145)
[2018-08-26 06:36] LABS: Absolute Lymphocyte Count 0.47 X10^3/ul (0.83-4.51); Absolute Neutrophil Count 4.2 X10^3/uL (2.0-7.7); Basophil# 0.01 X10^3/uL; Basophil% 0.2 % (0-1); Eosinophil# 0.09 X10^3/uL; Eosinophils% 1.6 % (0-5); Hematocrit 25.3 % (40-54); Hemoglobin 8.2 g/dl (13.0-16.5); Lymphocyte # 0.47 X10^3/ul (4.0); Lymphocyte % 8.4 % (19-41); Mean Corp Hgb Conc 32.4 g/gl (32-36); Mean Corpuscular Hgb 30.6 pg (27.0-32.0); Mean Corpuscular Volume 94.4 fL (80-94); Mean Platelet Vol. 10.7 fl (6.2-12.0); Monocyte# 0.79 X10^3/uL; Monocyte% 14.2 % (0-10); Neutrophil # 4.21 X10^3/uL (2.7-7.7); Neutrophil % 75.4 % (47-70); Platelet Count 155 K/mm3 (150-450); RBC Distribution Width CV 17.2 % (11.6-14.6); RBC Distribution Width SD 59.4 fl (35.1-43.9); Red Blood Count 2.68 M/mm3 (4.6-6.2); White Blood Count 5.6 K/mm3 (4.4-11.0)
[2018-08-26 06:53] LABS: Differential Indicated SCAN CRITERIA MET; POSITIVE COUNT NO; POSITIVE DIFFERENTIAL YES; POSITIVE MORPHOLOGY NO
[2018-08-26 07:06] LABS: Differential Comment SCANNED
[2018-08-26] MEDS: Amiodarone 200 MG Tablet PO (10:01)
[2018-08-26] MEDS: Venlafaxine XR 150 MG Capsule PO (10:01)
[2018-08-26] MEDS: Gabapentin 100 MG Capsule PO ×2 (10:01→17:04)
[2018-08-26] MEDS: BACITRACIN 15 GM Tube 1 APPLIC TOPICAL (10:03)
[2018-08-26] MEDS: Glucerna Shake 120 ML LIQUID PO ×2 (10:12→13:50)
--- NOTE | 2018-08-26 10:26 | CASEMGMT ---
Addendum entered by Eneida Lobato 08/26/18 12:35: SW spoke w/physician, he states pt is not ready for discharge today. He is calling pt's son Jaspal now to explain what is going on medically w/pt. KEAGAN called [facility] and let Belinda know pt is not ready for discharge today. She also informed SW she spoke to pt's son. ERICA Sanchez Original Note: SW spoke w/physician, he is waiting for input from the renal doctor and will then see if pt is ready for discharge. Pt's son Jaspal Mustafa had left a message w/nursing to have someone call him back as he has questions in regard to residential placement. SW called son Jaspal, let him know that pt may be ready for discharge today to [facility]. SW will let him know. Son's questions were in regard to insurance coverage at residential. SW explained how Medicare covers SNF. Son also asked about Medicaid, in regard to snf care, as he explains that pt's may need [facility] operator care. She is at [facility] already however he states that [facility] cannot take patients for snf, and he was not sure where else to consider. SW explained will call [facility] for clarification, and can email him a list of nursing homes in [facility], son agreeable to this and gave SW his email. Son also asked about Medicaid, he explains his father was told he is over income, his Mom has Medicaid already. SW explained that there are different types of Medicaid, and that Medicaid for nursing homes usually allow a higher income but less in the bank. SW explained if his mom already has Medicaid it is likely just a matter of converting one type to the other, and wherever she goes, if she does need longwall headgate operator care, should be able to assist. KEAGAN did also give son the number to [facility]. KEAGAN explained will call [facility] about clarification in regard to if they can take patients snf and will include this information in the email. KEAGAN called Belinda at [facility], let her know that pt may be able to come today. They can likely come pick pt up. KEAGAN also asked about [facility] patients, as son was told that they do not take longwall headgate operator patients, only rehab. Belinda states that they do take longwall headgate operator patients, and that pt's already has the correct Medicaid to cover snf care in place, and she can stay there [facility]. She is going to call pt's son herself to explain all of this. SW emailed son the list of nursing homes and included the information Belinda gave to this SW in email, and let him know Belinda will be calling him. KEAGAN will continue to follow for discharge to [facility] when pt is medically ready. ERICA Sanchez
--- NOTE | 2018-08-26 10:30 | NURSING ---
Leo Maciel LPN's assessment reviewed and this nurse agrees with assessment.
--- NOTE | 2018-08-26 11:34 | PCM.PN.REN ---
Patient Problems: Active and Suspected Problems (Last Reviewed 08/22/18 @ 03:47 by Lavelle Robertson MD) Acute renal failure (Acute) Dehydration (Acute) Elevated liver enzymes (Acute) RAFAT (acute kidney injury) (Acute) Hyperalbuminemia (Acute) Subjective: No new complaints - Physical Exam General: Alert, Oriented x3, Cooperative HEENT: Atraumatic, PERRLA, EOMI, Normocephalic Neck: Supple, No JVD, Negative Carotid Bruits Lungs: Clear to auscultation, Normal air movement Cardiovascular: Regular rate, No murmurs Abdomen: Bowel Sounds Present, Soft, Non Tender Extremities: No edema, Capillary Refill Less than 3 Seconds Skin: No rashes, No breakdown Musculoskeletal: No Tenderness to Palpation of Joints or Extremities Neurological: Cranial nerves II-XII grossly intact Psych/Mental Status: Normal Affect, Appropriate Vital Signs Temp Pulse Resp BP Pulse Ox 99.9 F H 60 16 101/56 L 98 08/26/18 09:15 08/26/18 09:15 08/26/18 09:15 08/26/18 09:15 08/26/18 09:15 Oxygen Delivery Method Room Air Weight: 76.6 kg Body Mass Index (BMI) 22.2 Finger Stick Blood Glucose 309 Intake and Output for Last 24 Hours 08/24/18 08/25/18 08/26/18 23:59 23:59 23:59 Intake Total 3107 / 3107 3233 / 3233 384 / 384 Output Total 4500 / 4500 2375 / 2375 100 / 100 Balance -1393 / -1393 858 / 858 284 / 284 Microbiology Past 72 Hours 08/21/18 15:50 Urine Culture - Final Urine, Clean Catch Culture exhibits no growth. Laboratory Tests Past 24 Hrs 08/26/18 08/26/18 05:30 05:30 WBC 5.6 RBC 2.68 L Hgb 8.2 L Hct 25.3 L MCV 94.4 H MCH 30.6 MCHC 32.4 RDW 17.2 H RDW Differential 59.4 H Plt Count 155 MPV 10.7 Immature Gran % (Auto) 0.200 Neut % (Auto) 75.4 H Lymph % (Auto) 8.4 L [place] % (Auto) 14.2 H Eos % (Auto) 1.6 Baso % (Auto) 0.2 Absolute Neuts (auto) 4.2 Absolute Lymphs (auto) 0.47 L Total Counted Not Reportable Differential Comment SCANNED Sodium 142 Potassium 3.9 Chloride 110 H Carbon Dioxide 25.0 Anion Gap 7 BUN 58 H Creatinine 2.88 H Estim Creat Clear Calc 24.01 Est GFR (MDRD) Af Amer 28 L Est GFR (MDRD) Non-Af 23 L BUN/Creatinine Ratio 20.1 H Glucose 98 Calcium 8.3 L Medical Necessity - Tobacco Use Smoking Status: Never smoker Tobacco Use: Non-smoker Assessment/Plan All Active Problems (Last Reviewed 08/22/18 @ 03:47 by Lavelle Robertson MD) Acute renal failure (Acute) Dehydration (Acute) Elevated liver enzymes (Acute) RAFAT (acute kidney injury) (Acute) Hyperalbuminemia (Acute) Atrial fibrillation with RVR (Acute) Hypotensive episode (Acute) 1-acute kidney injury and chronic kidney disease. Baseline creatinine seems around 1.5 mg deciliter. UA for this admission showed 100 protein, RBCs 10-25. Renal ultrasound was negative for hydronephrosis. Kidney function improved with IVF Creatinine peaked at 6.7 mg/dL. Creatinine today 2.8 mg/dL DC IV fluids Okay to discharge to rehab today. Will need BMP in a week Reviewed cardiology notes from last week of July. Lasix was increased to 80 twice daily at that time. 2-hypertension. Blood pressure is well controlled.
--- NOTE | 2018-08-26 11:40 | PCM.TXEXTCAR ---
- Diet 08/23/18 15:52 Diet: REGULAR Is pt able to select menu?: YES - Routine Orders/Code Status Routine Lab Work: BMP - IN 48 HRS, THEN AGAIN IN 5 DAYS - Wound(s) BLE Wound Type: Abrasion Left hip Wound Type: Hematoma Left FH Wound Type: Abrasion - Therapies Physical Therapy: Eval and Treat Occupational Therapy: Eval and Treat - Problem/Diagnosis (1) Debility Status: Acute Current Visit: Yes (2) Acute renal failure Status: Acute Comment: CAUSE UNKNOWN-FELT TO BE DUE TO DEHYDRATION Current Visit: Yes (3) Paroxysmal atrial fibrillation Status: Chronic Comment: DCCV 12/2016 and June 2017; Current Visit: No (4) Hypertension Status: Chronic Current Visit: No (5) Atherosclerosis of coronary artery of [place] heart without angina pectoris Status: Chronic Comment: PTCA/Stent to RCA 06/27/2004; CABG with MCKENZIE to LAD and free MARGAUX to OM2 in June 2004; PTCA/Stent of the proximal LAD June 2007; Current Visit: No - Allergies/Procedures Done in Hospital Allergies/Adverse Reactions: Allergies Penicillins Adverse Reaction (Mild, Verified 08/21/18 14:54) Upset Stomach SEASONAL Allergy (Mild, Uncoded 08/21/18 14:54) Other Procedures: - - RENAL ULTRASOUND - Type of Care/Length of Stay Estimated LOS: Convalescent Care Less Than 30 days Type of Care Needed: Skilled Rehab Potential: Good Prognosis: Good - Additional Orders/Day of Discharge H&P will serve as current which was dated: 08/21/18 Day of Discharge: 08/26/18 - Follow Up Care Primary Care Physician: Josemanuel Riley MD [Primary Care Provider] -
--- NOTE | 2018-08-26 11:55 | NURSING ---
Was asked to see patient for abrasions to bilateral lower legs. patient states he has been falling frequently at home and is here for [facility] placement. abrasions are dry and scabbed over can leave WIRE BENDER HAND as long as there is no drainage. no redness noted at this time. will monitor.
--- NOTE | 2018-08-26 12:02 | NURSING ---
wound photo: left lower leg
--- NOTE | 2018-08-26 12:03 | NURSING ---
wound photo: right lower leg
[2018-08-26 12:11] LABS: Iron 47 ug/dL (65-175); Iron Binding Capacity,Total 276 ug/dL (250-450)
[2018-08-26 14:06] LABS: PROEL- A/G Ratio 0.9 (0.7-1.7); PROEL- Albumin 3.1 g/dL (2.9-4.4); PROEL- Alpha-1 Globulin 0.4 g/dL (0.0-0.4); PROEL- Alpha-2 Globulin 0.8 g/dL (0.4-1.0); PROEL- Beta Globulin 1.2 g/dL (0.7-1.3); PROEL- Gamma Globulin 0.9 g/dL (0.4-1.8); PROEL- Globulin, Total 3.3 g/dL (2.2-3.9); PROEL- TOTAL PROTEIN 6.4 g/dL (6.0-8.5)
[2018-08-26 14:13] LABS: Pathologist Review Reviewed
--- NOTE | 2018-08-26 15:12 | HP.PCM_ITS ---
Problem List (1) Anemia Status: Acute Qualifiers: Anemia type: iron deficiency (2) Acute renal failure Status: Acute Comment: CAUSE UNKNOWN-FELT TO BE DUE TO DEHYDRATION History of Present Illness Date of Admission: 08/26/18 Chief Complaint: Iron deficiency anemia The patient is a 73 year old M who is here for dehydration and falls. I was consulted for anemia. Patient reports no gross blood in his stool. He has a history of sigmoid colectomy for diverticulitis. Patient notes no abdominal pain. The patient says his last colonoscopy was over 10 years ago. Past Medical History Past Medical History (Chronic Problems): Chronic Problems (Last Reviewed 08/22/18 @ 03:47 by Lavelle Robertson MD) Paroxysmal atrial fibrillation (Chronic) DCCV 12/2016 and June 2017; Nonrheumatic mitral (valve) insufficiency (Chronic) Paroxysmal ventricular tachycardia (Chronic) Atrial flutter (Chronic) Presence of cardiac pacemaker (Chronic ~08/19/12) Sick sinus syndrome (Chronic) S/P PPM November 2005; H/O coronary artery bypass surgery (Chronic ~06/28/04) MCKENZIE-LAD, Free MARGAUX-OM2 History of coronary artery stent placement (Chronic) Stent - RCA 06/2004 Stent-LAD 06/2007 Atherosclerosis of coronary artery bypass graft without angina pectoris (Chronic) Ischemic cardiomyopathy (Chronic) Hyperlipidemia (Chronic) Hypertension (Chronic) Atherosclerosis of coronary artery of [place] heart without angina pectoris (Chronic) PTCA/Stent to RCA 06/27/2004; CABG with MCKENZIE to LAD and free MARGAUX to OM2 in June 2004; PTCA/Stent of the proximal LAD June 2007; Chronic systolic (congestive) heart failure (Chronic) Medical History: Medical History (Last Reviewed 08/22/18 @ 03:47 by Lavelle Robertson MD) Nonrheumatic mitral (valve) insufficiency (Chronic) I34.0 Paroxysmal ventricular tachycardia (Chronic) I47.2 Atrial flutter (Chronic) I48.92 Sick sinus syndrome (Chronic) I49.5 S/P PPM November 2005; Atherosclerosis of coronary artery bypass graft without angina pectoris (Chronic) I25.810 Ischemic cardiomyopathy (Chronic) I25.5 Hyperlipidemia (Chronic) E78.5 Hypertension (Chronic) I10 Atherosclerosis of coronary artery of [place] heart without angina pectoris (Chronic) I25.10 PTCA/Stent to RCA 06/27/2004; CABG with MCKENZIE to LAD and free MARGAUX to OM2 in June 2004; PTCA/Stent of the proximal LAD June 2007; Chronic systolic (congestive) heart failure (Chronic) I50.22 History of cardioversion Onset Date: ~12/25/16 Z98.890 Obstructive sleep apnea G47.33 Old myocardial infarction Onset Date: ~06/2004 I25.2 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 Renal insufficiency N28.9 Allergies Penicillins Adverse Reaction (Mild, Verified 08/21/18 14:54) Upset Stomach SEASONAL Allergy (Mild, Uncoded 08/21/18 14:54) Other Home Medications: Ambulatory Orders Medication Instructions Recorded Amiodarone HCl 200 mg PO DAILY 08/07/18 Gabapentin [Neurontin] 300 mg PO BID 08/07/18 Latanoprost 0.005% [Xalatan 1 drp EACH EYE QHS 08/07/18 Opthalmic] Prednisolone Acetate [Pred Forte] 1 drp EACH EYE QHS 08/07/18 Rivaroxaban [Xarelto] 20 mg PO DAILY 08/07/18 Rosuvastatin Calcium [Crestor] 40 mg PO QHS 08/07/18 Tamsulosin HCl [Flomax] 0.4 mg PO DAILY 08/07/18 Venlafaxine HCl [Venlafaxine HCl 150 mg PO DAILY 08/07/18 ER] Surgical History: Surgical History (Last Reviewed 08/22/18 @ 03:47 by Lavelle Robertson MD) Presence of cardiac pacemaker (Chronic) Onset Date: ~08/19/12 Z95.0 H/O coronary artery bypass surgery (Chronic) Onset Date: ~06/28/04 Z95.1 MCKENZIE-LAD, Free MARGAUX-OM2 History of coronary artery stent placement (Chronic) Z95.5 Stent - RCA 06/2004 Stent-LAD 06/2007 History of electrophysiologic study Onset Date: ~05/2008 Z98.890 07/09/07 History of right hip replacement Z96.641 Surgical History: coronary bypass surgery, - - CABG x2, PCI, right hip replacement, pacemaker placement, bilateral total knee replacement. Psychiatric History: Anxiety, Depression Smoking Status: Never smoker Tobacco Use: Non-smoker - *Family History Maternal Family History: Family History (Last Reviewed 07/04/19 @ 03:47 by Lavelle Robertson MD) Mother CVA (cerebral vascular accident) Hypertension Sister Hypertension Daughter Brain aneurysm History Items: - - Patient notes a maternal family history of hypertension. Paternal Family History: Family History (Last Reviewed 08/22/18 @ 03:47 by Lavelle Robertson MD) Mother CVA (cerebral vascular accident) Hypertension Sister Hypertension Daughter Brain aneurysm History Items: - - Patient notes a paternal family history of coronary disease, heart disease, passed from [place]. Review of Systems Constitutional: Denies: Anorexia, Fever Eyes: Denies: Blurred vision HEENT: Denies: Difficulty Swallowing Cardiovascular: Denies: Chest Pain Respiratory: Denies: Cough, Shortness of Breath Gastrointestinal: Denies: Abdominal Pain, Nausea, Melena Genitourinary: Denies: Dysuria Hematologic/ Lymphatic: Reports: Anemia VTE Information - Inpt Only VTE Present on Admission: No VTE Mechan Device Prophylaxis: SCD's VTE Pharm Prophylaxis ordered?: No Patient Problems: Active and Suspected Problems (Last Reviewed 08/22/18 @ 03:47 by Lavelle Robertson MD) Acute renal failure (Acute) CAUSE UNKNOWN-FELT TO BE DUE TO DEHYDRATION Dehydration (Acute) Elevated liver enzymes (Acute) RAFAT (acute kidney injury) (Acute) Hyperalbuminemia (Acute) Debility (Acute) Anemia (Acute) - Physical Exam General: Alert, Oriented x3, Cooperative HEENT: Atraumatic Neck: No JVD Lungs: Normal air movement Cardiovascular: Regular rate, Regular Rhythm Abdomen: Soft, Non Tender, Non-Distended Vital Signs Temp Pulse Resp BP Pulse Ox 99.9 F H 60 16 101/56 L 98 08/26/18 09:15 08/26/18 11:03 08/26/18 09:15 08/26/18 09:15 08/26/18 09:15 Oxygen Delivery Method Room Air Weight: 168 lb 13.985 oz Body Mass Index (BMI) 22.2 Finger Stick Blood Glucose 309 Intake and Output for Last 24 Hours 08/24/18 08/25/18 08/26/18 23:59 23:59 23:59 Intake Total 3107 / 3107 3233 / 3233 1074 / 1074 Output Total 4500 / 4500 2375 / 2375 500 / 500 Balance -1393 / -1393 858 / 858 574 / 574 Microbiology Past 72 Hours 08/21/18 15:50 Urine Culture - Final Urine, Clean Catch Culture exhibits no growth. Laboratory Tests Past 24 Hrs 08/21/18 08/26/18 08/26/18 16:50 05:30 05:30 WBC 5.6 RBC 2.68 L Hgb 8.2 L Hct 25.3 L MCV 94.4 H MCH 30.6 MCHC 32.4 RDW 17.2 H RDW Differential 59.4 H Plt Count 155 MPV 10.7 Immature Gran % (Auto) 0.200 Neut % (Auto) 75.4 H Lymph % (Auto) 8.4 L [place] % (Auto) 14.2 H Eos % (Auto) 1.6 Baso % (Auto) 0.2 Absolute Neuts (auto) 4.2 Absolute Lymphs (auto) 0.47 L Total Counted Not Reportable Differential Comment SCANNED Diff Path Review Reviewed Sodium 142 Potassium 3.9 Chloride 110 H Carbon Dioxide 25.0 Anion Gap 7 BUN 58 H Creatinine 2.88 H Estim Creat Clear Calc 24.01 Est GFR (MDRD) Af Amer 28 L Est GFR (MDRD) Non-Af 23 L BUN/Creatinine Ratio 20.1 H Glucose 98 Calcium 8.3 L Iron TIBC Iron Saturation 08/26/18 05:30 WBC RBC Hgb Hct MCV MCH MCHC RDW RDW Differential Plt Count MPV Immature Gran % (Auto) Neut % (Auto) Lymph % (Auto) [place] % (Auto) Eos % (Auto) Baso % (Auto) Absolute Neuts (auto) Absolute Lymphs (auto) Total Counted Differential Comment Diff Path Review Sodium Potassium Chloride Carbon Dioxide Anion Gap BUN Creatinine Estim Creat Clear Calc Est GFR (MDRD) Af Amer Est GFR (MDRD) Non-Af BUN/Creatinine Ratio Glucose Calcium Iron 47 L TIBC 276 Iron Saturation 17.0 Assessment/Plan All Active Problems (Last Reviewed 08/22/18 @ 03:47 by Lavelle Robertson MD) Acute renal failure (Acute) Dehydration (Acute) Elevated liver enzymes (Acute) RAFAT (acute kidney injury) (Acute) Hyperalbuminemia (Acute) Debility (Acute) Anemia (Acute) Atrial fibrillation with RVR (Acute) Hypotensive episode (Acute) 73-year-old male with anemia 1. I was consulted due to the patient's anemia. The patient is not having any gross blood in stool or vomiting any blood. He has frequent falls at home and he is on Xarelto. I recommend patient have an upper and lower scope. I would like to wait until his kidneys have recovered from his dehydration before performing these. I have him scheduled for next week at 1:30 PM for upper and lower endoscopy. I discussed this with the patient and his son. 2. I explained endoscopy in detail to the patient. I explained the risks including but not limited to stroke or heart attack with anesthesia, perforation of the GI tract, bleeding, infection. I explained that any of these could necessitate further emergency surgery. The patient understands and all questions were answered sufficiently. The patient wishes to proceed with procedure. Dante Daigle MD Pager: [facility] [address] [place] [address], [address] [place] [address] Office:
[2018-08-26] MEDS: Tamsulosin HCl 0.4 MG Capsule PO (17:04)
--- NOTE | 2018-08-26 17:16 | NURSING ---
Leo Maciel LPN's assessment reviewed and this nurse is in agreement.
--- NOTE | 2018-08-26 19:43 | PCM.PROGNOTE ---
Patient Problems: Active and Suspected Problems (Last Reviewed 08/22/18 @ 03:47 by Lavelle Robertson MD) Acute renal failure (Acute) CAUSE UNKNOWN-FELT TO BE DUE TO DEHYDRATION Dehydration (Acute) Elevated liver enzymes (Acute) RAFAT (acute kidney injury) (Acute) Hyperalbuminemia (Acute) Debility (Acute) Anemia (Acute) Subjective: Patient was seen and examined today, his hemoglobin today was 8.2, I had initially entertain transferring the patient to intermediate today but when I noted his hemoglobin had dropped from admission, I was reluctant to send him and I had general surgery see him for possible endoscopy. There is no evidence at this time that the patient has acute GI bleeding, I did a serum iron level and it was slightly low and I gave him IV iron. General surgery like to do a colonoscopy and EGD as an outpatient due to the patient's acute renal failure. I explained this to the patient and the patient's son by phone. I will repeat patient's labs in the morning and if they are stable, I anticipate the patient going to intermediate tomorrow. For now, I think it is prudent to hold the patient's Xarelto. - Physical Exam General: Alert, Oriented x3, Cooperative, No apparent distress, Well developed HEENT: Atraumatic, PERRLA, EOMI, Normocephalic Oral: Moist Mucosa Neck: Supple, No JVD, Trachea Midline, Thyroid Normal Size and Texture Lungs: Clear to auscultation, Normal air movement, No rhonchi, No wheeze, No rales Cardiovascular: Regular rate, Regular Rhythm, Normal S1, Normal S2, No murmurs Abdomen: Bowel Sounds Present, Soft, Non Tender, Non-Distended, No hernias noted Extremities: No clubbing, No cyanosis, No edema, Capillary Refill Less than 3 Seconds Neurological: Cranial nerves II-XII grossly intact, Neuro grossly intact, Sensory exam intact to light touch and pain, Coordination normal Psych/Mental Status: Normal Affect, Appropriate, Alert and oriented to time, place, person, mood and affect Vital Signs Temp Pulse Resp BP Pulse Ox 99.3 F H 60 16 125/65 H 95 08/26/18 17:22 08/26/18 18:50 08/26/18 17:22 08/26/18 17:22 08/26/18 17:22 Oxygen Delivery Method Room Air Weight: 76.6 kg Body Mass Index (BMI) 22.2 Finger Stick Blood Glucose 309 Intake and Output for Last 24 Hours 08/24/18 08/25/18 08/26/18 23:59 23:59 23:59 Intake Total 3107 / 3107 3233 / 3233 1784 / 1784 Output Total 4500 / 4500 2375 / 2375 500 / 500 Balance -1393 / -1393 858 / 858 1284 / 1284 Microbiology Past 72 Hours 08/21/18 15:50 Urine Culture - Final Urine, Clean Catch Culture exhibits no growth. Laboratory Tests Past 24 Hrs 08/21/18 08/26/18 08/26/18 16:50 05:30 05:30 WBC 5.6 RBC 2.68 L Hgb 8.2 L Hct 25.3 L MCV 94.4 H MCH 30.6 MCHC 32.4 RDW 17.2 H RDW Differential 59.4 H Plt Count 155 MPV 10.7 Immature Gran % (Auto) 0.200 Neut % (Auto) 75.4 H Lymph % (Auto) 8.4 L [place] % (Auto) 14.2 H Eos % (Auto) 1.6 Baso % (Auto) 0.2 Absolute Neuts (auto) 4.2 Absolute Lymphs (auto) 0.47 L Total Counted Not Reportable Differential Comment SCANNED Diff Path Review Reviewed Sodium 142 Potassium 3.9 Chloride 110 H Carbon Dioxide 25.0 Anion Gap 7 BUN 58 H Creatinine 2.88 H Estim Creat Clear Calc 24.01 Est GFR (MDRD) Af Amer 28 L Est GFR (MDRD) Non-Af 23 L BUN/Creatinine Ratio 20.1 H Glucose 98 Calcium 8.3 L Iron TIBC Iron Saturation 08/26/18 05:30 WBC RBC Hgb Hct MCV MCH MCHC RDW RDW Differential Plt Count MPV Immature Gran % (Auto) Neut % (Auto) Lymph % (Auto) [place] % (Auto) Eos % (Auto) Baso % (Auto) Absolute Neuts (auto) Absolute Lymphs (auto) Total Counted Differential Comment Diff Path Review Sodium Potassium Chloride Carbon Dioxide Anion Gap BUN Creatinine Estim Creat Clear Calc Est GFR (MDRD) Af Amer Est GFR (MDRD) Non-Af BUN/Creatinine Ratio Glucose Calcium Iron 47 L TIBC 276 Iron Saturation 17.0 Medical Necessity - Tobacco Use Smoking Status: Never smoker Tobacco Use: Non-smoker Assessment/Plan All Active Problems (Last Reviewed 08/22/18 @ 03:47 by Lavelle Robertson MD) Acute renal failure (Acute) Dehydration (Acute) Elevated liver enzymes (Acute) RAFAT (acute kidney injury) (Acute) Hyperalbuminemia (Acute) Debility (Acute) Anemia (Acute) Atrial fibrillation with RVR (Resolved) Hypotensive episode (Resolved) #1 acute renal failure on a backdrop of stage III chronic kidney disease-possibly secondary to dehydration from diuretics, continue IV fluid administration, recheck BMP tomorrow #2 anemia-iron deficiency anemia-etiology unclear at this point, patient will be given iron IV, I will repeat this tomorrow #3 coronary artery disease #4 generalized debility-patient will go to a intermediate facility when stable #5 hypertension #6 elevated troponin-etiology unclear #7 depression #8 type 2 diabetes #9 ischemic cardiomyopathy-EF 35% Code Visit Inpatient E&M: 33373 Subs Hosp L2
[2018-08-26] MEDS: Atorvastatin Calcium 80 MG Tablet PO (22:01)
[2018-08-26] MEDS: prednisoLONE eye drops (5 mL) 1 DROP OPTH.BTL 1 DRP EACH EYE (22:01)
[2018-08-26] MEDS: Latanoprost 0.005% 1 Bottle 1 DRP EACH EYE (22:01)
[2018-08-27 03:06] VITALS: PULSE 60
[2018-08-27 03:35] VITALS: BP 129/69; PULSE 62; RESP 15; TEMP 37; O2SAT 95
[2018-08-27] MEDS: 0.9% Normal Saline 1,000 ML 75 ML IV (05:46)
[2018-08-27 07:14] VITALS: PULSE 61
[2018-08-27 08:50] LABS: Anion Gap 8 (5-15); BUN 50 mg/dL (7-18); BUN/Creat Ratio 20.5 RATIO (10-20); Calcium,Total 8.3 mg/dL (8.5-10.1); Chloride 111 mmol/L (98-107); Creatinine, Serum 2.44 mg/dL (0.70-1.30); EST Glomerular Filtration Rate 28 mL/min (>60); Est Glom Filt Rate - Afr Amer 34 mL/min (>60); Estimated Creatinine Clearance 28.34 ml/min; Glucose 91 mg/dL (74-106); Potassium 3.7 mmol/L (3.5-5.1); Sodium Level 142 mmol/L (136-145)
[2018-08-27 08:51] LABS: Absolute Lymphocyte Count 0.49 X10^3/ul (0.83-4.51); Absolute Neutrophil Count 3.3 X10^3/uL (2.0-7.7); Basophil# 0.01 X10^3/uL; Basophil% 0.2 % (0-1); Eosinophil# 0.12 X10^3/uL; Eosinophils% 2.7 % (0-5); Hematocrit 26.5 % (40-54); Hemoglobin 8.3 g/dl (13.0-16.5); Lymphocyte # 0.49 X10^3/ul (4.0); Mean Corp Hgb Conc 31.3 g/gl (32-36); Mean Corpuscular Hgb 29.7 pg (27.0-32.0); Mean Platelet Vol. 11.1 fl (6.2-12.0); Monocyte# 0.58 X10^3/uL; Neutrophil # 3.25 X10^3/uL (2.7-7.7); Neutrophil % 73.1 % (47-70); Platelet Count 152 K/mm3 (150-450); RBC Distribution Width CV 17.4 % (11.6-14.6); RBC Distribution Width SD 60.6 fl (35.1-43.9); Red Blood Count 2.79 M/mm3 (4.6-6.2); White Blood Count 4.5 K/mm3 (4.4-11.0)
[2018-08-27 08:52] LABS: Differential Indicated SCAN CRITERIA MET; POSITIVE COUNT NO; POSITIVE DIFFERENTIAL YES; POSITIVE MORPHOLOGY NO
[2018-08-27] MEDS: Venlafaxine XR 150 MG Capsule PO (08:52)
[2018-08-27] MEDS: Gabapentin 100 MG Capsule PO (08:52)
[2018-08-27] MEDS: Amiodarone 200 MG Tablet PO (08:52)
[2018-08-27 09:12] LABS: Differential Comment SCANNED
[2018-08-27 09:35] VITALS: BP 143/72; PULSE 61; RESP 18; TEMP 36.6; O2SAT 98
[2018-08-27 10:59] VITALS: PULSE 63
--- NOTE | 2018-08-27 11:18 | PCM.PN.REN ---
Patient Problems: Active and Suspected Problems (Last Reviewed 08/22/18 @ 03:47 by Lavelle Robertson MD) Acute renal failure (Acute) CAUSE UNKNOWN-FELT TO BE DUE TO DEHYDRATION Dehydration (Acute) Elevated liver enzymes (Acute) RAFAT (acute kidney injury) (Acute) Hyperalbuminemia (Acute) Debility (Acute) Anemia (Acute) Subjective: no new events - Physical Exam General: Alert, Oriented x3, Cooperative HEENT: Atraumatic, PERRLA, EOMI, Normocephalic Neck: Supple, No JVD, Negative Carotid Bruits Lungs: Clear to auscultation, Normal air movement Cardiovascular: Regular rate, No murmurs Abdomen: Bowel Sounds Present, Soft, Non Tender Extremities: No edema, Capillary Refill Less than 3 Seconds Skin: No rashes, No breakdown Musculoskeletal: No Tenderness to Palpation of Joints or Extremities Neurological: Cranial nerves II-XII grossly intact Psych/Mental Status: Normal Affect, Appropriate Vital Signs Temp Pulse Resp BP Pulse Ox 97.8 F 63 18 143/72 H 98 08/27/18 09:35 08/27/18 10:59 08/27/18 09:35 08/27/18 09:35 08/27/18 09:35 Oxygen Delivery Method Room Air Weight: 76.6 kg Body Mass Index (BMI) 22.2 Finger Stick Blood Glucose 309 Intake and Output for Last 24 Hours 08/25/18 08/26/18 08/27/18 23:59 23:59 23:59 Intake Total 3233 / 3233 3532 / 3532 407 / 407 Output Total 2375 / 2375 500 / 500 590 / 590 Balance 858 / 858 3032 / 3032 -183 / -183 Microbiology Past 72 Hours 08/21/18 15:50 Urine Culture - Final Urine, Clean Catch Culture exhibits no growth. Laboratory Tests Past 24 Hrs 08/21/18 08/26/18 08/27/18 16:50 05:30 07:24 WBC 4.5 RBC 2.79 L Hgb 8.3 L Hct 26.5 L MCV 95.0 H MCH 29.7 MCHC 31.3 L RDW 17.4 H RDW Differential 60.6 H Plt Count 152 MPV 11.1 Immature Gran % (Auto) 0.000 Neut % (Auto) 73.1 H Lymph % (Auto) 11.0 L [place] % (Auto) 13.0 H Eos % (Auto) 2.7 Baso % (Auto) 0.2 Absolute Neuts (auto) 3.3 Absolute Lymphs (auto) 0.49 L Total Counted Not Reportable Differential Comment SCANNED Diff Path Review Reviewed Sodium Potassium Chloride Carbon Dioxide Anion Gap BUN Creatinine Estim Creat Clear Calc Est GFR (MDRD) Af Amer Est GFR (MDRD) Non-Af BUN/Creatinine Ratio Glucose Calcium Iron 47 L TIBC 276 Iron Saturation 17.0 08/27/18 07:24 WBC RBC Hgb Hct MCV MCH MCHC RDW RDW Differential Plt Count MPV Immature Gran % (Auto) Neut % (Auto) Lymph % (Auto) [place] % (Auto) Eos % (Auto) Baso % (Auto) Absolute Neuts (auto) Absolute Lymphs (auto) Total Counted Differential Comment Diff Path Review Sodium 142 Potassium 3.7 Chloride 111 H Carbon Dioxide 23.0 Anion Gap 8 BUN 50 H Creatinine 2.44 H Estim Creat Clear Calc 28.34 Est GFR (MDRD) Af Amer 34 L Est GFR (MDRD) Non-Af 28 L BUN/Creatinine Ratio 20.5 H Glucose 91 Calcium 8.3 L Iron TIBC Iron Saturation Medical Necessity - Tobacco Use Smoking Status: Never smoker Tobacco Use: Non-smoker Assessment/Plan All Active Problems (Last Reviewed 08/22/18 @ 03:47 by Lavelle Robertson MD) Acute renal failure (Acute) Dehydration (Acute) Elevated liver enzymes (Acute) RAFAT (acute kidney injury) (Acute) Hyperalbuminemia (Acute) Debility (Acute) Anemia (Acute) Atrial fibrillation with RVR (Resolved) Hypotensive episode (Resolved) 1-acute kidney injury and chronic kidney disease. Baseline creatinine seems around 1.5 mg deciliter. UA for this admission showed 100 protein, RBCs 10-25. Renal ultrasound was negative for hydronephrosis. Kidney function improved with IVF Creatinine peaked at 6.7 mg/dL. Creatinine today 2.4 mg/dL off fluids Okay to discharge to rehab today. Will need BMP in a week Reviewed cardiology notes from last week of July. Lasix was increased to 80 twice daily at that time. currently volume status looks ok. 2-hypertension. Blood pressure is well controlled.
[2018-08-27 12:33] VITALS: BP 139/69; PULSE 63; RESP 18; TEMP 36.3; O2SAT 97
--- NOTE | 2018-08-27 13:05 | CASEMGMT ---
Patient is ready for discharge to [facility]. Faxed orders to [facility]. 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 She made some phone calls and said someone could be here in about a half an hour. KEAGAN notified RN, RN CARDIOVASCULAR, area secretary, and patient. KEAGAN asked patient if he would like SW to call family to notify them of above. He said, No, he would take care of it. d/c to [facility] at [place] under skilled level of care on a convalescent stay. [facility] came to [facility] and picked up patient via van. Shannen HA JEWELRY INSPECTOR
[2018-08-27 16:08] LABS: Albumin, Ur 16.5 % (.); Alpha-1-Globulin, Ur 6.1 % (.); Alpha-2-Globulins, Ur 25.9 % (.); Beta Globulin, Ur 29.9 % (.); Gamma Globulin, Ur 21.6 % (.); Protein, 24Ur 878 mg/24 hr (30-150); Total Protein, Ur 36.6 mg/dL (Not Estab.)
[2018-08-28 13:00] LABS: IFE Result, Ur Comment: (.); M-Spike, Ur % Comment: % (Not Observed)
[2018-08-28 18:18] LABS: ANTINUCLEAR ANTIBODIES DIRECT Negative (Negative)
--- NOTE | 2018-08-29 09:48 | DS.PCM_ITS ---
Discharge Date and Diagnosis Date of Admission: 08/26/18 Date of Discharge: 08/27/18 - Primary Discharge Diagnosis #1 acute renal failure on a backdrop of stage III chronic kidney disease- possibly secondary to dehydration from diuretics #2 anemia-iron deficiency anemia-etiology unclear at this point #3 coronary artery disease #4 generalized debility #5 hypertension #6 elevated troponin \#7 depression #8 type 2 diabetes #9 ischemic cardiomyopathy-EF 35% #10 atrial fibrillation-chronic - Secondary Discharge Diagnosis Chronic Problems (Last Reviewed 08/22/18 @ 03:47 by Lavelle Robertson MD) Paroxysmal atrial fibrillation (Chronic) DCCV 12/2016 and June 2017; Nonrheumatic mitral (valve) insufficiency (Chronic) Paroxysmal ventricular tachycardia (Chronic) Atrial flutter (Chronic) Presence of cardiac pacemaker (Chronic ~08/19/12) Sick sinus syndrome (Chronic) S/P PPM November 2005; H/O coronary artery bypass surgery (Chronic ~06/28/04) MCKENZIE-LAD, Free MARGAUX-OM2 History of coronary artery stent placement (Chronic) Stent - RCA 06/2004 Stent-LAD 06/2007 Atherosclerosis of coronary artery bypass graft without angina pectoris (Chronic) Ischemic cardiomyopathy (Chronic) Hyperlipidemia (Chronic) Hypertension (Chronic) Atherosclerosis of coronary artery of [place] heart without angina pectoris (Chronic) PTCA/Stent to RCA 06/27/2004; CABG with MCKENZIE to LAD and free MARGAUX to OM2 in June 2004; PTCA/Stent of the proximal LAD June 2007; Chronic systolic (congestive) heart failure (Chronic) Hospital Course and Treatment Consultations 08/25/18 15:23 Consult: Onc/Wound/racing secretary Routine Comment: Reason for Consult:: MULTIPLE ABRASIONS/REDDENED AREA BLES Operations: None Procedures: - - Renal ultrasound Summary of Care Provided: The patient is a 73 year old M room at [facility] with a chief complaint of generalized debility. Patient is under treatment as an outpatient for an ischemic cardiomyopathy and takes Lasix, he had stopped the Lasix prior to coming to the emergency room but still felt weak. Evaluation in the ER included labs which revealed his creatinine to be 6.71 with a BUN of 113. Patient's liver enzymes were also elevated, his troponin was also elevated. CT of the abdomen and pelvis was performed which was negative for renal pathology, a Boykin catheter was inserted with the resulting 400 cc of urine that appeared concentrated. Patient was admitted to PCU for acute renal failure and elevated troponins, his troponin was cycled and found to be persistently elevated in the intermediate range, patient had no cardiac complaints and his EKG showed a paced rhythm. Patient was seen in consultation by nephrology who recommended administration of fluids, with a ministration of fluids patient's creatinine dropped, patient's hemoglobin however also dropped from an unknown reason, iron studies were obtained and showed the patient be iron deficient. Patient's Xarel to was stopped due to concerns that he had occult bleeding, general surgery was consulted and felt that due to his kidney failure, they would delay doing endoscopy until the following week. Patient was seen by PT and OT and was felt to benefit from inpatient rehab services. Arrangements were made for the patient be admitted to a [place] [facility] facility. Patient was given iron infusions while in the hospital, his hemoglobin did not drop further from the initial drop. On 08/27/2018, patient was seen and examined: On examination he appeared in good health and spirits. Vital signs as documented. Skin warm and dry and without overt rashes. Neck without JVD. Lungs clear. Heart exam notable for regular rhythm, normal sounds and absence of murmurs, rubs or gallops. Abdomen unremarkable and without evidence of organomegaly, masses, or abdominal aortic enlargement. Extremities nonedematous. Neuro: Cranial nerves II through XII are grossly intact, no focal motor deficits were noted, sensation to light touch and pinprick intact. Psych: Patient is alert and oriented x3, he does not appear anxious or depressed On 08/27/2018, patient was seen and examined and felt to be in stable condition f or discharge to [place]. - Physical Exam Vital Signs Temp Pulse Resp BP Pulse Ox 97.3 F L 63 18 139/69 H 97 08/27/18 12:33 08/27/18 12:33 08/27/18 12:33 08/27/18 12:33 08/27/18 12:33 Oxygen Delivery Method Room Air Weight: 76.6 kg Body Mass Index (BMI) 22.2 Finger Stick Blood Glucose 309 Intake and Output for Last 24 Hours 08/27/18 08/28/18 08/29/18 23:59 23:59 23:59 Intake Total 807 / 807 Output Total 1265 / 1265 Balance -458 / -458 Laboratory Tests Past 24 Hrs 08/22/18 08/22/18 08/22/18 16:44 16:44 16:44 Total Protein (PEP) 6.4 Albumin (PEP) 3.1 Globulin (PEP) 3.3 Albumin/Globulin (PEP) 0.9 Zhgxq-5-Miwekjgkx 0.4 Jhyob-7-Zmhtfniex 0.8 Beta Globulins 1.2 Gamma Globulins 0.9 M-Rohan PEP Note Comment PEP Interpretation Comment Ur Total Protein 24 Hr Urine Total Protein Urine Albumin U Ycqsr-8-Usrxfscq U Czqbs-2-Uwrxtuqe U Beta Globulin U Gamma Globulin U PEP M-Rohan U PEP M-Rohan 24 Hr Urine Immunofixation Ur Immunofix PEP Note ANOOP Screen Negative c-ANCA Antibody p-ANCA Antibody Not Reportable MARCEL-1 Antibody Not Reportable SS-A/Ro IgG Antibody Not Reportable SS-B/La IgG Antibody Not Reportable Sm (English) Antibody Not Reportable RIPSAW OPERATOR Antibody Not Reportable Scl-70 Scleroderma Ab Not Reportable Double Strand DNA Ab Not Reportable Centromere B Antibody Not Reportable Glomerular Base Memb Ab Complement C3 Complement C4 08/25/18 02:00 Total Protein (PEP) Albumin (PEP) Globulin (PEP) Albumin/Globulin (PEP) Kfmyj-3-Oszkrpaye Abtzg-8-Xjpurrfpl Beta Globulins Gamma Globulins M-Rohan PEP Note PEP Interpretation Ur Total Protein 24 Hr 878 H Urine Total Protein 36.6 Urine Albumin 16.5 U Nuvmx-9-Opkqccnp 6.1 U Ccofi-1-Caxhusov 25.9 U Beta Globulin 29.9 U Gamma Globulin 21.6 U PEP M-Rohan Comment: U PEP M-Rohan 24 Hr TNP Urine Immunofixation Comment: Ur Immunofix PEP Note Comment ANOOP Screen c-ANCA Antibody p-ANCA Antibody MARCEL-1 Antibody SS-A/Ro IgG Antibody SS-B/La IgG Antibody Sm (English) Antibody RIPSAW OPERATOR Antibody Scl-70 Scleroderma Ab Double Strand DNA Ab Centromere B Antibody Glomerular Base Memb Ab Complement C3 Complement C4 Home Medications: Medications to take at Discharge Amiodarone HCl 200 mg PO DAILY 08/07/18 Gabapentin [Neurontin] 300 mg PO BID 08/07/18 Latanoprost 0.005% [Xalatan Opthalmic] 1 drp EACH EYE QHS 08/07/18 Prednisolone Acetate [Pred Forte] 1 drp EACH EYE QHS 08/07/18 Rivaroxaban [Xarelto] 20 mg PO DAILY 08/07/18 Rosuvastatin Calcium [Crestor] 40 mg PO QHS 08/07/18 Tamsulosin HCl [Flomax] 0.4 mg PO DAILY 08/07/18 Venlafaxine HCl [Venlafaxine HCl ER] 150 mg PO DAILY 08/07/18 Primary Care Physician: Josemanuel Riley MD [Primary Care Provider] - Disposition: Assisted facility Minutes spent on discharge:: 32 Patient Condition:: Stable Medical Necessity - Tobacco Use Smoking Status: Never smoker Tobacco Use: Non-smoker Meaningful Use Info Meaningful Use Diagnoses (Choose all that apply): None applicable Code Visit Inpatient E&M: 88313 Disch Hosp
== END 2018-08-27 13:04 | disposition skilled nursing facility (03) | DRG 682 ==
LOC: ED 20:57 → PCU 21:14
PROVIDERS: Internal Medicine; Internal Medicine Nephrology; Admitting Provider Hospitalist; Emergency Provider Emergency Medicine; Family Provider Internal Medicine; PCP Internal Medicine; Visit Provider Internal Medicine
DX: N17.9 Acute kidney failure, unspecified (principal); E43 Unspecified severe protein-calorie malnutrition; I50.22 Chronic systolic (congestive) heart failure; I13.0 Hypertensive heart and chronic kidney disease with heart failure and stage 1 through stage 4 chronic kidney disease, or unspecified chronic kidney disease; N18.3 Chronic kidney disease, stage 3 (moderate); E78.5 Hyperlipidemia, unspecified; N40.0 Benign prostatic hyperplasia without lower urinary tract symptoms; F32.9 Major depressive disorder, single episode, unspecified; R79.89 Other specified abnormal findings of blood chemistry; I25.10 Atherosclerotic heart disease of native coronary artery without angina pectoris; E11.22 Type 2 diabetes mellitus with diabetic chronic kidney disease; R29.6 Repeated falls; I25.5 Ischemic cardiomyopathy; I48.0 Paroxysmal atrial fibrillation; E86.0 Dehydration; D50.9 Iron deficiency anemia, unspecified; T50.2X5A Adverse effect of carbonic-anhydrase inhibitors, benzothiadiazides and other diuretics, initial encounter; Z95.5 Presence of coronary angioplasty implant and graft; Z95.1 Presence of aortocoronary bypass graft; Z79.01 Long term (current) use of anticoagulants; Z95.0 Presence of cardiac pacemaker; Z68.22 Body mass index [BMI] 22.0-22.9, adult
CPT/HCPCS: 36415; 51702; 70450; 71045; 73502; 74176; 76705; 76770; 80048; 80069; 80076; 81001; 82570; 82607; 83520; 83540; 83550; 83690; 83735; 83935; 84165; 84166; 84300; 84484; 84540; 85025; 85610; 86038; 86160; 86225; 86235; 86256; 86335; 86431; 87086; 93005; 97110; 97162; 97166; 97530; 97535; 97802; 99285; J1756; J7030; J7040; A4216

== ENCOUNTER 2018-09-02 12:08 | Day surgery (SDC) | payer MEDICARE, OTHER, SELFPAY ==
[2018-08-21 21:36] VITALS: BMI 22.2
--- NOTE | 2018-08-30 09:18 | NURSING ---
Ludivina, from [place] called and notified of meds to take am of scope. amiodorone, gabapentin. states Xaralto last given. 08/28/18.
[2018-09-02 12:35] VITALS: BP 167/78; PULSE 64; RESP 14; TEMP 36.2; O2SAT 100; BMI 25.1
--- NOTE | 2018-09-02 13:18 | HP.PCM_ITS ---
Problem List (1) Anemia Status: Acute Qualifiers: Anemia type: iron deficiency Iron deficiency anemia type: unspecified iron deficiency Qualified Code(s): D50.9 - Iron deficiency anemia, unspecified History and Physical Date of Admission: 09/02/18 History & Physical (Standard) Patient Name: PRITESH STERLING Date of : 1945 Patient Status: Inpatient Attending Provider: Ben Voss Date: 08/26/18 15:12 Initialization Date: 08/26/18 15:12 Problem List (1) Anemia Status: Acute Qualifiers: Anemia type: iron deficiency (2) Acute renal failure Status: Acute Comment: CAUSE UNKNOWN-FELT TO BE DUE TO DEHYDRATION History of Present Illness Date of Admission: 08/26/18 Chief Complaint: Iron deficiency anemia The patient is a 73 year old M who is here for dehydration and falls. I was consulted for anemia. Patient reports no gross blood in his stool. He has a history of sigmoid colectomy for diverticulitis. Patient notes no abdominal pain. The patient says his last colonoscopy was over 10 years ago. Past Medical History Past Medical History (Chronic Problems): Chronic Problems (Last Reviewed 08/22/18 @ 03:47 by Lavelle Robertson MD) Paroxysmal atrial fibrillation (Chronic) DCCV 12/2016 and June 2017; Nonrheumatic mitral (valve) insufficiency (Chronic) Paroxysmal ventricular tachycardia (Chronic) Atrial flutter (Chronic) Presence of cardiac pacemaker (Chronic ~08/19/12) Sick sinus syndrome (Chronic) S/P PPM November 2005; H/O coronary artery bypass surgery (Chronic ~06/28/04) MCKENZIE-LAD, Free MARGAUX-OM2 History of coronary artery stent placement (Chronic) Stent - RCA 06/2004 Stent-LAD 06/2007 Atherosclerosis of coronary artery bypass graft without angina pectoris (Chronic) Ischemic cardiomyopathy (Chronic) Hyperlipidemia (Chronic) Hypertension (Chronic) Atherosclerosis of coronary artery of [place] heart without angina pectoris (Chronic) PTCA/Stent to RCA 06/27/2004; CABG with MCKENZIE to LAD and free MARGAUX to OM2 in June 2004; PTCA/Stent of the proximal LAD June 2007; Chronic systolic (congestive) heart failure (Chronic) Medical History: Medical History (Last Reviewed 07/04/19 @ 03:47 by Lavelle Robertson MD) Nonrheumatic mitral (valve) insufficiency (Chronic) I34.0 Paroxysmal ventricular tachycardia (Chronic) I47.2 Atrial flutter (Chronic) I48.92 Sick sinus syndrome (Chronic) I49.5 S/P PPM November 2005; Atherosclerosis of coronary artery bypass graft without angina pectoris (Chronic) I25.810 Ischemic cardiomyopathy (Chronic) I25.5 Hyperlipidemia (Chronic) E78.5 Hypertension (Chronic) I10 Atherosclerosis of coronary artery of [place] heart without angina pectoris (Chronic) I25.10 PTCA/Stent to RCA 06/27/2004; CABG with MCKENZIE to LAD and free MARGAUX to OM2 in June 2004; PTCA/Stent of the proximal LAD June 2007; Chronic systolic (congestive) heart failure (Chronic) I50.22 History of cardioversion Onset Date: ~12/25/16 Z98.890 Obstructive sleep apnea G47.33 Old myocardial infarction Onset Date: ~06/2004 I25.2 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 Renal insufficiency N28.9 Allergies Penicillins Adverse Reaction (Mild, Verified 08/21/18 14:54) Upset Stomach SEASONAL Allergy (Mild, Uncoded 08/21/18 14:54) Other Home Medications: Ambulatory Orders Medication Instructions Recorded Amiodarone HCl 200 mg PO DAILY 08/07/18 Gabapentin [Neurontin] 300 mg PO BID 08/07/18 Latanoprost 0.005% [Xalatan 1 drp EACH EYE QHS 08/07/18 Opthalmic] Prednisolone Acetate [Pred Forte] 1 drp EACH EYE QHS 08/07/18 Rivaroxaban [Xarelto] 20 mg PO DAILY 08/07/18 Rosuvastatin Calcium [Crestor] 40 mg PO QHS 08/07/18 Tamsulosin HCl [Flomax] 0.4 mg PO DAILY 08/07/18 Venlafaxine HCl [Venlafaxine HCl 150 mg PO DAILY 08/07/18 ER] Surgical History: Surgical History (Last Reviewed 08/22/18 @ 03:47 by Lavelle Robertson MD) Presence of cardiac pacemaker (Chronic) Onset Date: ~08/19/12 Z95.0 H/O coronary artery bypass surgery (Chronic) Onset Date: ~06/28/04 Z95.1 MCKENZIE-LAD, Free MARGAUX-OM2 History of coronary artery stent placement (Chronic) Z95.5 Stent - RCA 06/2004 Stent-LAD 06/2007 History of electrophysiologic study Onset Date: ~05/2008 Z98.890 07/09/07 History of right hip replacement Z96.641 Surgical History: coronary bypass surgery, - - CABG x2, PCI, right hip replacement, pacemaker placement, bilateral total knee replacement. Psychiatric History: Anxiety, Depression Smoking Status: Never smoker Tobacco Use: Non-smoker - *Family History Maternal Family History: Family History (Last Reviewed 08/22/18 @ 03:47 by Lavelle Robertson MD) Mother CVA (cerebral vascular accident) Hypertension Sister Hypertension Daughter Brain aneurysm History Items: - - Patient notes a maternal family history of hypertension. Paternal Family History: Family History (Last Reviewed 08/22/18 @ 03:47 by Lavelle Robertson MD) Mother CVA (cerebral vascular accident) Hypertension Sister Hypertension Daughter Brain aneurysm History Items: - - Patient notes a paternal family history of coronary disease, heart disease, passed from [place]. Review of Systems Constitutional: Denies: Anorexia, Fever Eyes: Denies: Blurred vision HEENT: Denies: Difficulty Swallowing Cardiovascular: Denies: Chest Pain Respiratory: Denies: Cough, Shortness of Breath Gastrointestinal: Denies: Abdominal Pain, Nausea, Melena Genitourinary: Denies: Dysuria Hematologic/ Lymphatic: Reports: Anemia VTE Information - Inpt Only VTE Present on Admission: No VTE Mechan Device Prophylaxis: SCD's VTE Pharm Prophylaxis ordered?: No Patient Problems: Active and Suspected Problems (Last Reviewed 08/22/18 @ 03:47 by Lavelle Robertson MD) Acute renal failure (Acute) CAUSE UNKNOWN-FELT TO BE DUE TO DEHYDRATION Dehydration (Acute) Elevated liver enzymes (Acute) RAFAT (acute kidney injury) (Acute) Hyperalbuminemia (Acute) Debility (Acute) Anemia (Acute) - Physical Exam General: Alert, Oriented x3, Cooperative HEENT: Atraumatic Neck: No JVD Lungs: Normal air movement Cardiovascular: Regular rate, Regular Rhythm Abdomen: Soft, Non Tender, Non-Distended Vital Signs Temp Pulse Resp BP Pulse Ox 99.9 F H 60 16 101/56 L 98 08/26/18 09:15 08/26/18 11:03 08/26/18 09:15 08/26/18 09:15 08/26/18 09:15 Oxygen Delivery Method Room Air Weight: 168 lb 13.985 oz Body Mass Index (BMI) 22.2 Finger Stick Blood Glucose 309 Intake and Output for Last 24 Hours 08/24/18 08/25/18 08/26/18 23:59 23:59 23:59 Intake Total 3107 / 3107 3233 / 3233 1074 / 1074 Output Total 4500 / 4500 2375 / 2375 500 / 500 Balance -1393 / -1393 858 / 858 574 / 574 Microbiology Past 72 Hours 08/21/18 15:50 Urine Culture - Final Urine, Clean Catch Culture exhibits no growth. Laboratory Tests Past 24 Hrs 08/21/18 08/26/18 08/26/18 16:50 05:30 05:30 WBC 5.6 RBC 2.68 L Hgb 8.2 L Hct 25.3 L MCV 94.4 H MCH 30.6 MCHC 32.4 RDW 17.2 H RDW Differential 59.4 H Plt Count 155 MPV 10.7 Immature Gran % (Auto) 0.200 Neut % (Auto) 75.4 H Lymph % (Auto) 8.4 L [place] % (Auto) 14.2 H Eos % (Auto) 1.6 Baso % (Auto) 0.2 Absolute Neuts (auto) 4.2 Absolute Lymphs (auto) 0.47 L Total Counted Not Reportable Differential Comment SCANNED Diff Path Review Reviewed Sodium 142 Potassium 3.9 Chloride 110 H Carbon Dioxide 25.0 Anion Gap 7 BUN 58 H Creatinine 2.88 H Estim Creat Clear Calc 24.01 Est GFR (MDRD) Af Amer 28 L Est GFR (MDRD) Non-Af 23 L BUN/Creatinine Ratio 20.1 H Glucose 98 Calcium 8.3 L Iron TIBC Iron Saturation 08/26/18 05:30 WBC RBC Hgb Hct MCV MCH MCHC RDW RDW Differential Plt Count MPV Immature Gran % (Auto) Neut % (Auto) Lymph % (Auto) [place] % (Auto) Eos % (Auto) Baso % (Auto) Absolute Neuts (auto) Absolute Lymphs (auto) Total Counted Differential Comment Diff Path Review Sodium Potassium Chloride Carbon Dioxide Anion Gap BUN Creatinine Estim Creat Clear Calc Est GFR (MDRD) Af Amer Est GFR (MDRD) Non-Af BUN/Creatinine Ratio Glucose Calcium Iron 47 L TIBC 276 Iron Saturation 17.0 Assessment/Plan All Active Problems (Last Reviewed 08/22/18 @ 03:47 by Lavelle Robertson MD) Acute renal failure (Acute) Dehydration (Acute) Elevated liver enzymes (Acute) RAFAT (acute kidney injury) (Acute) Hyperalbuminemia (Acute) Debility (Acute) Anemia (Acute) Atrial fibrillation with RVR (Acute) Hypotensive episode (Acute) 73-year-old male with anemia 1. I was consulted due to the patient's anemia. The patient is not having any gross blood in stool or vomiting any blood. He has frequent falls at home and he is on Xarelto. I recommend patient have an upper and lower scope. I would like to wait until his kidneys have recovered from his dehydration before performing these. I have him scheduled for next week at 1:30 PM for upper and lower endoscopy. I discussed this with the patient and his son. 2. I explained endoscopy in detail to the patient. I explained the risks including but not limited to stroke or heart attack with anesthesia, perforation of the GI tract, bleeding, infection. I explained that any of these could necessitate further emergency surgery. The patient understands and all questions were answered sufficiently. The patient wishes to proceed with procedure. Dante Daigle MD Pager: [facility] [address] [place] [address], [address] [place] [address] Office:
[2018-09-02 13:20] LABS: Bedside Glucose 90 mg/dL (70-110)
[2018-09-02 13:59] VITALS: BP 147/78; BP 167/78; PULSE 60; RESP 18; TEMP 36.1; O2SAT 98
--- NOTE | 2018-09-02 13:59 | OP.ENDO_ITS ---
09/02/2018 Josemanuel Riley [address] [place] [address] Re : Upper GI endoscopy procedure for Ubaldo Mustafa Dear Dr. Riley This procedure was performed on Sunday, September 02, 2018. My impressions and recommendations are as follows: Impressions : - Normal esophagus. - Normal stomach. - Normal examined duodenum. - No specimens collected. Recommendations : - Discharge patient to home. - Resume previous diet. - Continue present medications. My findings are described in the full procedure note, which is enclosed. If I can be of further assistance, please feel free to contact me at Doctor phone number(s): , Work: . Sincerely, Dante Daigle MD 09/02/2018 1:58:43 PM This report has been signed electronically.
[2018-09-02 14:00] VITALS: BP 149/77; BP 167/78; PULSE 60; RESP 18; O2SAT 100
--- NOTE | 2018-09-02 14:00 | OP.ENDO_ITS ---
09/02/2018 Josemanuel Riley [address] [place] [address] Re : Colonoscopy procedure for Ubaldo Mustafa Dear Dr. Riley This procedure was performed on Sunday, September 02, 2018. My impressions and recommendations are as follows: Impressions : - The entire examined colon is normal on direct and retroflexion views. - No specimens collected. Recommendations : - Discharge patient to home. - Resume previous diet. - Continue present medications. - Resume Xarelto (rivaroxaban) at prior dose tomorrow. - Repeat colonoscopy in 5 years for surveillance. My findings are described in the full procedure note, which is enclosed. If I can be of further assistance, please feel free to contact me at Doctor phone number(s): , Work: . Sincerely, Dante Daigle MD 09/02/2018 2:00:26 PM This report has been signed electronically.
[2018-09-02 14:05] VITALS: BP 157/79; BP 167/78; PULSE 60; RESP 18; O2SAT 100
[2018-09-02 14:10] VITALS: BP 157/80; BP 167/78; PULSE 60; RESP 18; O2SAT 100
[2018-09-02 14:16] VITALS: BP 161/80; BP 167/78; PULSE 60; RESP 18; TEMP 36.1; O2SAT 99
== END 2018-09-02 15:17 | disposition home or self-care (01) ==
LOC: EN 12:13 → AC 12:15
PROVIDERS: Family Provider Internal Medicine; PCP Internal Medicine; Referring Provider Internal Medicine; Visit Provider Surgery
PROC: 0DJD8ZZ Inspection of Lower Intestinal Tract, Via Natural or Artificial Opening Endoscopic (ICD-10-PCS; CPT 45378; principal; 2018-09-02 13:25)
DX: D50.9 Iron deficiency anemia, unspecified (principal); I48.0 Paroxysmal atrial fibrillation; E78.5 Hyperlipidemia, unspecified; I11.0 Hypertensive heart disease with heart failure; I50.22 Chronic systolic (congestive) heart failure; I25.810 Atherosclerosis of coronary artery bypass graft(s) without angina pectoris; I48.92 Unspecified atrial flutter; I25.5 Ischemic cardiomyopathy; I25.2 Old myocardial infarction; G62.9 Polyneuropathy, unspecified; Z95.0 Presence of cardiac pacemaker; Z95.5 Presence of coronary angioplasty implant and graft; Z79.02 Long term (current) use of antithrombotics/antiplatelets; Z79.899 Other long term (current) drug therapy
CPT/HCPCS: 43235; 45378; 82962; J7120

== ENCOUNTER → 2018-10-08 | Outpatient (CLI) | payer MEDICARE, OTHER, SELFPAY ==
--- NOTE | 2018-10-08 13:16 | CT_ITS ---
STUDY: CT SOFT TISSUE NECK WITH CONTRAST REASON FOR EXAM: Male, 73 years old. Left neck mass RADIATION DOSAGE (If Supplied By Facility): CTDIvol = ( 14.18 ) mGy, DLP = ( 881.99 ) mGycm TECHNIQUE: The patient was scanned in a multi-detector CT scanner. High resolution transaxial imaging was performed following intravenous administration of 75mL IV Isovue 370. Sagittal and coronal images were reconstructed. Individualized dose optimization techniques were used for this CT. COMPARISON: None. FINDINGS: A marker is placed on the left side just superficial to the left sternocleidomastoid muscle, with no evidence of focal abnormality. No evidence of cystic or solid lesion is visualized in the same region. Normal bilateral parotid glands. Normal bilateral java portal developer spaces. Normal bilateral parapharyngeal spaces. Normal bilateral carotid spaces. Normal bilateral sublingual and submandibular glands and spaces. Normal visualized nasopharynx. Normal retropharyngeal space. Normal perivertebral space. Normal visualized bilateral faucial tonsils. The visualized tongue, tongue base and oropharynx are normal. The visualized cervical lymph nodes (levels I-) are within normal size limits, and maintain normal morphology. There is no demonstrated solid or cystic mass lesion. There is no abnormal contrast enhancement. Normal epiglottis, bilateral vallecula and hypopharynx. The pre-epiglottic and paraglottic adipose spaces are normal. Normal visualized bilateral piriform sinuses, aryepiglottic folds, vocal cords, and arytenoid-cricoid articulations. Normal subglottic trachea. Normal bilateral lobes of the thyroid gland. Normal visualized pulmonary apices. Prior right maxillary antrostomy with mild chronic changes There is multilevel degenerative changes of the cervical spine. CT/Soft Tissue Neck WITH Contrast IMPRESSION: A marker is placed on the left side just superficial to the left sternocleidomastoid muscle, with no evidence of focal abnormality. No evidence of cystic or solid lesion is visualized in the same region. Prior right maxillary antrostomy with mild chronic changes There is multilevel degenerative changes of the cervical spine. Electronically Signed: Kanu Andino MD at 14:03 EDT Tel [phone], Service support ,
[2018-10-08 13:51] LABS: CREATININE FINGERSTICK 1.4 mg/dL (0.70-1.30)
== END | disposition home or self-care (01) ==
LOC: CT 13:14
PROVIDERS: Family Provider Internal Medicine; PCP Internal Medicine; Referring Provider Otolaryngology Otolaryngology/Facial Plastic Surgery; Visit Provider Otolaryngology Otolaryngology/Facial Plastic Surgery
DX: R22.1 Localized swelling, mass and lump, neck (principal)
CPT/HCPCS: 70491; Q9967

== ENCOUNTER → 2018-11-26 | Outpatient (CLI) | payer MEDICARE, OTHER, SELFPAY ==
[2018-11-25 14:26] VITALS: BMI 24.7
[2018-11-26 13:49] LABS: AST(SGOT) 52 U/L (15-37); Alanine Aminotransfer ALT/SGPT 36 U/L (16-61); Albumin, Serum 3.7 g/dL (3.2-5.0); Alkaline Phosphatase 136 U/L (45-117); Anion Gap 4 (5-15); BUN 20 mg/dL (7-18); BUN/Creat Ratio 14.2 RATIO (10-20); Bilirubin, Direct 0.42 mg/dL (0.00-0.30); Calcium,Total 9.1 mg/dL (8.5-10.1); Chloride 106 mmol/L (98-107); Cholesterol 131 mg/dL (200); Creatinine, Serum 1.41 mg/dL (0.70-1.30); EST Glomerular Filtration Rate 52 mL/min (>60); Est Glom Filt Rate - Afr Amer 63 mL/min (>60); Glucose 108 mg/dL (74-106); High Density Lipoprotein 38 mg/dL; Potassium 3.4 mmol/L (3.5-5.1); Protein, Total 7.7 g/dL (6.4-8.2); Sodium Level 141 mmol/L (136-145); Triglycerides 91 mg/dL; Very Low Density Lipoprotein 18 mg/dL (5-40)
== END | disposition home or self-care (01) ==
LOC: LAB 12:49
PROVIDERS: Family Provider Internal Medicine; PCP Internal Medicine; Referring Provider Nurse Practitioner Family; Visit Provider Nurse Practitioner Family
DX: I50.22 Chronic systolic (congestive) heart failure (principal); N17.9 Acute kidney failure, unspecified; E78.5 Hyperlipidemia, unspecified; I25.10 Atherosclerotic heart disease of native coronary artery without angina pectoris; R74.8 Abnormal levels of other serum enzymes
CPT/HCPCS: 36415; 80048; 80061; 80076

== ENCOUNTER → 2019-01-24 13:42 | Outpatient (CLI) | payer MEDICARE, OTHER, SELFPAY ==
[2018-11-25 14:26] VITALS: BMI 24.7
[2019-01-24 14:19] LABS: Anion Gap 4 (5-15); BUN 15 mg/dL (7-18); BUN/Creat Ratio 9.7 RATIO (10-20); Calcium,Total 9.6 mg/dL (8.5-10.1); Chloride 106 mmol/L (98-107); Creatinine, Serum 1.55 mg/dL (0.70-1.30); EST Glomerular Filtration Rate 47 mL/min (>60); Est Glom Filt Rate - Afr Amer 56 mL/min (>60); Glucose 115 mg/dL (74-106); Potassium 4.6 mmol/L (3.5-5.1); Sodium Level 142 mmol/L (136-145)
== END ==
PROVIDERS: Family Provider Internal Medicine; PCP Internal Medicine; Referring Provider Nurse Practitioner Family; Visit Provider Nurse Practitioner Family
DX: E78.5 Hyperlipidemia, unspecified (principal); I25.5 Ischemic cardiomyopathy; I48.0 Paroxysmal atrial fibrillation; I11.0 Hypertensive heart disease with heart failure; I50.23 Acute on chronic systolic (congestive) heart failure
CPT/HCPCS: 36415; 80048

== ENCOUNTER → 2019-03-28 | Outpatient (CLI) | payer MEDICARE, OTHER, SELFPAY ==
[2018-11-25 14:26] VITALS: BMI 24.7
[2019-03-28 15:28] LABS: Anion Gap 3 (5-15); BUN 17 mg/dL (7-18); BUN/Creat Ratio 11.3 RATIO (10-20); Calcium,Total 9.8 mg/dL (8.5-10.1); Chloride 106 mmol/L (98-107); Creatinine, Serum 1.51 mg/dL (0.70-1.30); EST Glomerular Filtration Rate 48 mL/min (>60); Est Glom Filt Rate - Afr Amer 58 mL/min (>60); Glucose 128 mg/dL (74-106); Sodium Level 141 mmol/L (136-145)
== END | disposition home or self-care (01) ==
LOC: LAB 14:07
PROVIDERS: PCP Internal Medicine; Referring Provider Nurse Practitioner Family; Visit Provider Nurse Practitioner Family
DX: E88.09 Other disorders of plasma-protein metabolism, not elsewhere classified (principal); I25.5 Ischemic cardiomyopathy; I25.810 Atherosclerosis of coronary artery bypass graft(s) without angina pectoris; I48.0 Paroxysmal atrial fibrillation; I49.5 Sick sinus syndrome; I50.23 Acute on chronic systolic (congestive) heart failure; N17.9 Acute kidney failure, unspecified; R53.81 Other malaise; Z95.0 Presence of cardiac pacemaker
CPT/HCPCS: 36415; 80048

== ENCOUNTER 2020-05-09 09:24 | Emergency (ER) | payer MEDICARE, OTHER, SELFPAY ==
[2020-01-26 08:33] VITALS: BMI 27.3
[2020-05-09 09:25] VITALS: BP 147/90; PULSE 59; RESP 16; TEMP 36.3; O2SAT 100; BMI 26.4
--- NOTE | 2020-05-09 10:03 | CT_ITS ---
INDICATION: headache EXAMINATION: CT BRAIN - CT Head or Brain W/O Contrast Injection TECHNIQUE: Multiple axial images were obtained of the head without intravenous contrast. A radiation dose optimization technique was used for this scan. IV Contrast dosage and agent: None. COMPARISON: 08/21/2018 FINDINGS: BRAIN PARENCHYMA: No intra- or extra-axial hemorrhage. No evidence of acute infarct. No intracranial mass or mass effect. 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 There is preservation of the ponce/white matter interface. Posterior fossa structures are unremarkable. CSF SPACES: Appropriate for age. No hydrocephalus. Basal cisterns are patent. CALVARIUM, SKULL BASE, PARANASAL SINUSES AND MASTOID AIR CELLS: Clear. No discrete lytic or blastic abnormalities. ORBITS: Both globes, extraocular muscles, optic nerves and retrobulbar fat appear unremarkable. ASPECTS Score for Acute Strokes: 11/28 CT/Brain/Head without Contrast IMPRESSION: No definite acute or significant abnormality seen. Electronically Signed: Brayden Bowden MD at 11:01 EDT , Service support ,
--- NOTE | 2020-05-09 10:05 | ED.VIS.GEN ---
History of Present Illness Chief Complaint: Headache Informant: Patient, Significant Other Narrative: 74-year-old male presents with 3 days of right frontal headache. Patient states that it is a dull constant ache with occasional sharp spikes. He denies any neurologic deficits or changes. He notes some light sensitivity. No change in hearing. He denies any trauma or injury. No rashes. He states he is not someone who is prone to headaches. He got his second Covid vaccination on Sunday but his headache was present before he got his vaccination. He is on Eliquis. He states he is very worried that he has a ruptured brain aneurysm because his daughter of one. - Past Medical History (1) Atherosclerosis of coronary artery of [place] heart without angina pectoris Status: Chronic Comment: PTCA/Stent to RCA 06/27/2004; CABG with MCKENZIE to LAD and free MARGAUX to OM2 in June 2004; PTCA/Stent of the proximal LAD (2) Atrial flutter Status: Chronic (3) Chronic systolic (congestive) heart failure Status: Chronic (4) Essential (primary) hypertension Status: Chronic (5) Hyperlipidemia Status: Chronic (6) Ischemic cardiomyopathy Status: Chronic (7) Paroxysmal atrial fibrillation Status: Chronic Comment: DCCV 12/2016 and June 2017; (8) Paroxysmal ventricular tachycardia Status: Chronic (9) Sick sinus syndrome Status: Chronic Comment: S/P PPM November 2005; Past Medical History - Allergies and Home Meds Allergies/Adverse Reactions: Allergies Penicillins Adverse Reaction (Mild, Verified 05/09/20 09:27) Upset Stomach SEASONAL Allergy (Mild, Uncoded 05/09/20 09:27) Other Primary Care Physician: Josemanuel Riley MD [Primary Care Provider] - 1-2 Days if not improving Surgical History: coronary bypass surgery, - - CABG x2, PCI, right hip replacement, pacemaker placement, bilateral total knee replacement. Lives: Spouse/ Significant Other Smoking Status: Never smoker Drugs: None - Family History Maternal Family History: Family History (Last Reviewed 06/19/19 @ 15:[address] Cam Fong MD) Mother CVA (cerebral vascular accident) Hypertension Sister Hypertension Daughter Brain aneurysm Family History: Reports: - - Patient notes a maternal family history of hypertension. Paternal Family History: Family History (Last Reviewed 06/19/19 @ 15:[address] Cam Fong MD) Mother CVA (cerebral vascular accident) Hypertension Sister Hypertension Daughter Brain aneurysm Family History: Reports: - - Patient notes a paternal family history of coronary disease, heart disease, passed from [place]. Review of Systems General: Denies: Chills, Fever, Sweats Eyes: Denies: Visual changes - bilaterally, Diplopia ENT: Denies: Rhinorrhea, Sore throat Cardiovascular: Denies: Chest pain, Palpitations Respiratory: Denies: Dyspnea, Cough, Dyspnea on exertion Gastrointestinal: Denies: Abdominal pain, Nausea, Vomiting, Diarrhea, Melena, Hematochezia Genitourinary: Denies: Dysuria, Hematuria, Frequency Musculoskeletal: Denies: Back pain, Extremity Pain Skin: Denies: Rash, Wounds Neurological: Reports: Headache. Denies: Weakness, Numbness Physical Exam Vital Signs/Narrative: Vital Signs Temp Pulse Resp BP Pulse Ox 05/09/20 09:25 97.3 F L 59 L 16 147/90 H 100 Inital Vital Signs reviewed: Yes General: Well nourished, Well developed, No Acute Distress Head: Normocephalic, Atraumatic Eyes: Perrl, EOMI ENT: Moist mucous membranes, No rhinorrhea Neck: Supple, Nontender Cardiovascular: Regular rate, Regular rhythm, No murmurs Respiratory: No distress, CTA bilaterally, Chest nontender Abdomen: Soft, Nontender, Nondistended, Normal bowel sounds Back: Nontender, Normal Inspection Extremities: Nontender, No edema Skin: Normal color, No rash Neurological: Alert, Oriented x3, Cranial nerves II-XII grossly intact, Normal Strength, Normal Sensation Psychological: Normal affect, Normal Mood Diagnostic/Tx/Re-eval Laboratory Last Values WBC 3.6 K/mm3 (4.4-11.0) L 05/09/20 10:05 RBC 4.50 M/mm3 (4.6-6.2) L 05/09/20 10:05 Hgb 14.1 g/dL (13.0-16.5) 05/09/20 10:05 Hct 43.0 % (40-54) 05/09/20 10:05 MCV 95.6 fL (80-94) H 05/09/20 10:05 MCH 31.3 pg (27.0-32.0) 05/09/20 10:05 MCHC 32.8 g/dL (32-36) 05/09/20 10:05 RDW Std Deviation 46.5 fl (35.1-43.9) H 05/09/20 10:05 RDW Coeff of Su 13.1 % (11.6-14.6) 05/09/20 10:05 Plt Count 114 K/mm3 (150-450) L 05/09/20 10:05 MPV 11.4 fl (6.2-12.0) 05/09/20 10:05 Immature Gran % (Auto) 0.000 % (0.0-0.9) 05/09/20 10:05 Neut % (Auto) 67.4 % (47-70) 05/09/20 10:05 Lymph % (Auto) 17.1 % (19-41) L 05/09/20 10:05 [place] % (Auto) 11.5 % (0-10) H 05/09/20 10:05 Eos % (Auto) 3.4 % (0-5) 05/09/20 10:05 Baso % (Auto) 0.6 % (0-1) 05/09/20 10:05 Absolute Neuts (auto) 2.4 X10^3/uL (2.0-7.7) 05/09/20 10:05 Absolute Lymphs (auto) 0.61 X10^3/uL (0.83-4.51) L 05/09/20 10:05 Nucleated RBC % 0 % (0-5) 05/09/20 10:05 Sodium 137 mmol/L (136-145) 05/09/20 10:05 Potassium 3.6 mmol/L (3.5-5.1) 05/09/20 10:05 Chloride 103 mmol/L (98-107) 05/09/20 10:05 Carbon Dioxide 27.0 mmol/L (21.0-32.0) 05/09/20 10:05 Anion Gap 7 (5-15) 05/09/20 10:05 BUN 22 mg/dL (7-18) H 05/09/20 10:05 Creatinine 1.50 mg/dL (0.70-1.30) H 05/09/20 10:05 Estim Creat Clear Calc 47.35 ml/min 05/09/20 10:05 Est GFR (MDRD) Af Amer 58 mL/min (>60) L 05/09/20 10:05 Est GFR (MDRD) Non-Af 48 mL/min (>60) L 05/09/20 10:05 BUN/Creatinine Ratio 14.7 RATIO (10-20) 05/09/20 10:05 Glucose 138 mg/dL (74-106) H 05/09/20 10:05 Calcium 9.1 mg/dL (8.5-10.1) 05/09/20 10:05 Total Bilirubin 0.80 mg/dL (0.20-1.00) 05/09/20 10:05 AST 60 U/L (15-37) H 05/09/20 10:05 ALT 63 U/L (16-61) H 05/09/20 10:05 Alkaline Phosphatase 104 U/L (45-117) 05/09/20 10:05 Total Protein 7.4 g/dL (6.4-8.2) 05/09/20 10:05 Albumin 3.5 g/dL (3.2-5.0) 05/09/20 10:05 Globulin 3.9 g/dL (2.2-4.2) 05/09/20 10:05 Albumin/Globulin Ratio 0.9 RATIO (0.9-2.4) 05/09/20 10:05 Clinical Impression(s) from Imaging Studies Brain CT 05/09/20 10:03 IMPRESSION: No definite acute or significant abnormality seen. Electronically Signed: Brayden Bowden MD at 11:01 EDT , Service support , - Medical Decision Making Patient received a dose of Toradol and Reglan. He states that he is doing better and that he no longer has these sharp stabbing pains. He states that he had that headache that was dull and aching before the Covid but after the Covid shot is when he developed a sharp aching pains. This point I do not see a clear etiology for his headache. I recommend rest continue Tylenol fluid hydration if no improvement follow-up with primary care return if worsening ED Disposition - Plan for ED Patient: Disposition: Home or Assisted Living Diagnosis: Headache Instructions: ED Headache Unspecified Referrals: Josemanuel Riley MD [Primary Care Provider] - 1-2 Days if not improving
[2020-05-09 10:13] LABS: Absolute Lymphocyte Count 0.61 X10^3/uL (0.83-4.51); Absolute Neutrophil Count 2.4 X10^3/uL (2.0-7.7); Basophil# 0.02 X10^3/uL; Basophil% 0.6 % (0-1); Eosinophil# 0.12 X10^3/uL; Eosinophils% 3.4 % (0-5); Hemoglobin 14.1 g/dL (13.0-16.5); Lymphocyte # 0.61 X10^3/ul (4.0); Lymphocyte % 17.1 % (19-41); Mean Corp Hgb Conc 32.8 g/dL (32-36); Mean Corpuscular Hgb 31.3 pg (27.0-32.0); Mean Corpuscular Volume 95.6 fL (80-94); Mean Platelet Vol. 11.4 fl (6.2-12.0); Monocyte# 0.41 X10^3/uL; Monocyte% 11.5 % (0-10); NRBC Flagged by Analyzer 0 % (0-5); Neutrophil # 2.41 X10^3/uL (2.7-7.7); Neutrophil % 67.4 % (47-70); Platelet Count 114 K/mm3 (150-450); RBC Distribution Width CV 13.1 % (11.6-14.6); RBC Distribution Width SD 46.5 fl (35.1-43.9); White Blood Count 3.6 K/mm3 (4.4-11.0)
[2020-05-09] MEDS: Ketorolac 15 MG/ML Vial IV (10:18)
[2020-05-09] MEDS: Metoclopramide 10 MG/2 ML Vial 5 MG IV (10:21)
[2020-05-09 10:30] LABS: ALB/GLOB Ratio 0.9 RATIO (0.9-2.4); AST(SGOT) 60 U/L (15-37); Alanine Aminotransfer ALT/SGPT 63 U/L (16-61); Albumin, Serum 3.5 g/dL (3.2-5.0); Alkaline Phosphatase 104 U/L (45-117); Anion Gap 7 (5-15); BUN 22 mg/dL (7-18); BUN/Creat Ratio 14.7 RATIO (10-20); Calcium,Total 9.1 mg/dL (8.5-10.1); Chloride 103 mmol/L (98-107); EST Glomerular Filtration Rate 48 mL/min (>60); Est Glom Filt Rate - Afr Amer 58 mL/min (>60); Estimated Creatinine Clearance 47.35 ml/min; Globulin 3.9 g/dL (2.2-4.2); Glucose 138 mg/dL (74-106); Potassium 3.6 mmol/L (3.5-5.1); Protein, Total 7.4 g/dL (6.4-8.2); Sodium Level 137 mmol/L (136-145)
[2020-05-09 11:29] VITALS: BP 164/97; PULSE 60; RESP 12; O2SAT 97
== END 2020-05-09 11:31 | disposition home or self-care (01) ==
PROVIDERS: Emergency Provider Emergency Medicine; PCP Internal Medicine
DX: R51.9 Headache, unspecified (principal); I25.10 Atherosclerotic heart disease of native coronary artery without angina pectoris; I11.0 Hypertensive heart disease with heart failure; I50.22 Chronic systolic (congestive) heart failure; E78.5 Hyperlipidemia, unspecified; I48.0 Paroxysmal atrial fibrillation; Z79.02 Long term (current) use of antithrombotics/antiplatelets; Z79.899 Other long term (current) drug therapy
CPT/HCPCS: 70450; 80053; 85025; 96374; 96375; 99285; A4216

== ENCOUNTER 2020-06-13 04:07 | Emergency (ER) | payer MEDICARE, OTHER, SELFPAY ==
[2020-06-13 04:08] VITALS: BP 152/94; PULSE 93; RESP 18; TEMP 35.5; O2SAT 99; BMI 60.6
--- NOTE | 2020-06-13 04:28 | ED.DCSUM_ITS ---
History of Present Illness Chief Complaint: Dental Informant: Patient Onset: Days Context: Gradual Onset Timing: Continuous Current Severity: Moderate Maximum Severity: Moderate Narrative: Patient is a 74-year-old male presents to the emergency department with dental pain. He states that he saw his dentist earlier this week. He was having pain on the Tooth. He was started on clindamycin. He states that over the past 24 hours, the swelling of the tooth has gotten more significant and he was having increasing pain. He denies fevers or chills. He denies any trouble speaking or swallowing. He is otherwise been in his normal state of health. Prior similar symptoms: No Recent Illness/Hospitalization: No Past Medical History - Allergies and Home Meds Allergies/Adverse Reactions: Allergies Penicillins Adverse Reaction (Mild, Verified 06/13/20 04:10) Upset Stomach SEASONAL Allergy (Mild, Uncoded 05/09/20 09:27) Other Primary Care Physician: Josemanuel Riley MD [Primary Care Provider] - Prior records reviewed: Yes Past Medical History: - - A. fib, hypertension, hyperlipidemia, coronary vascular disease Surgical History: coronary bypass surgery, - - CABG x2, PCI, right hip replacement, pacemaker placement, bilateral total knee replacement. Smoking Status: Never smoker - Family History Maternal Family History: Family History (Last Reviewed 06/19/19 @ 15:[address] Cma Fong MD) Mother CVA (cerebral vascular accident) Hypertension Sister Hypertension Daughter Brain aneurysm Family History: Reports: - - Patient notes a maternal family history of hypertension. Paternal Family History: Family History (Last Reviewed 06/19/19 @ 15:[address] Cam Fong MD) Mother CVA (cerebral vascular accident) Hypertension Sister Hypertension Daughter Brain aneurysm Family History: Reports: - - Patient notes a paternal family history of coronary disease, heart disease, passed from [place]. Review of Systems General: Denies: Chills, Fever, Sweats Eyes: Denies: Visual changes - bilaterally, Diplopia ENT: Denies: Rhinorrhea, Sore throat Cardiovascular: Denies: Chest pain, Palpitations Respiratory: Denies: Dyspnea, Cough, Dyspnea on exertion Gastrointestinal: Denies: Abdominal pain, Nausea, Vomiting, Diarrhea, Melena, Hematochezia Genitourinary: Denies: Dysuria, Hematuria, Frequency Musculoskeletal: Denies: Back pain, Extremity Pain Skin: Denies: Rash, Wounds Neurological: Denies: Headache, Weakness, Numbness Physical Exam Vital Signs/Narrative: Vital Signs Temp Pulse Resp BP Pulse Ox 06/13/20 04:08 96 F L 93 18 152/94 H 99 Inital Vital Signs reviewed: Yes General: Well nourished, Well developed, No Acute Distress Head: Normocephalic, Atraumatic Eyes: Perrl, EOMI ENT: Moist mucous membranes, No rhinorrhea, - - Oropharynx is widely patent. Submental space is soft. There is abscess of tooth #29. There is purulence and fluctuance. Neck: Supple, Nontender Cardiovascular: Regular rate, Regular rhythm, No murmurs Respiratory: No distress, CTA bilaterally, Chest nontender Abdomen: Soft, Nontender, Nondistended, Normal bowel sounds Back: Nontender, Normal Inspection Extremities: Nontender, No edema Skin: Normal color, No rash Neurological: Alert, Oriented x3, Cranial nerves II-XII grossly intact, Normal Strength, Normal Sensation Psychological: Normal affect, Normal Mood Diagnostic/Tx/Re-eval - Medical Decision Making Patient presents with obvious dental abscess. There is significant fluctuance. He is also having some pain. Patient was consented for inferior alveolar block and incision and drainage. Block was done using 3 cc bupivacaine without epinephrine. Landmarks were identified, there was no blood aspirated, and anesthesia was achieved. As the patient is on anticoagulants, great care was made. I did make a very small incision on the inferior aspect of the tooth of approximately 4 mm. Purulence was able to be expressed. The gumline was gently massaged and purulence was relieved. The patient tolerated this well and his pain was improved. He will continue the antibiotics. He will follow-up with his dentist. He will be discharged home. Impression 1. Dental abscess with incision and drainage 2. Inferior alveolar block ED Disposition - Plan for ED Patient: Instructions: Dental Abscess Prescriptions: Hydrocodone Bitart/Apap 5-325 [[place] 5MG-325MG] 1 tablet PO Q6H PRN PRN 3 Days #10 tab PRN Reason: Pain Prescription Printed Referrals: Josemanuel Riley MD [Primary Care Provider] -
[2020-06-13 04:57] VITALS: RESP 18
== END 2020-06-13 04:58 | disposition home or self-care (01) ==
LOC: ED 04:22
PROVIDERS: Emergency Provider Emergency Medicine; PCP Internal Medicine
DX: K04.7 Periapical abscess without sinus (principal); I10 Essential (primary) hypertension; E78.5 Hyperlipidemia, unspecified; Z79.2 Long term (current) use of antibiotics
CPT/HCPCS: 41800; 64999; 99282

== ENCOUNTER → 2020-10-05 15:22 | Outpatient (CLI) | payer MEDICARE, OTHER, SELFPAY ==
[2020-10-05 14:45] VITALS: BMI 27.4
--- NOTE | 2020-10-05 15:30 | RAD_ITS ---
STUDY: X-RAY CHEST REASON FOR EXAM: Male, 75 years old. afib TECHNIQUE: Frontal and lateral views COMPARISON: None. FINDINGS: Sternotomy wires and left-sided pacemaker are in place. The lungs are clear and expanded. There is no demonstrated pleural abnormality. Normal size heart. Normal mediastinum and kaushik. Normal visualized pulmonary arteries. Normal visualized aortic arch and descending thoracic aorta. Normal visualized thoracic spine. Normal visualized ribs, clavicles, and shoulders. There is no demonstrated abnormality of the visualized soft tissue structures of the upper abdomen. RAD/Chest PA and Lateral IMPRESSION: Normal x-ray examination of the chest. Electronically Signed: Chuy Patterson DO at 16:15 EDT Tel [phone], Service support ,
[2020-10-05 17:52] LABS: Anion Gap 5 (5-15); BUN 18 mg/dL (7-18); BUN/Creat Ratio 14.2 RATIO (10-20); Chloride 108 mmol/L (98-107); Creatinine, Serum 1.27 mg/dL (0.70-1.30); EST Glomerular Filtration Rate 58 mL/min (>60); Est Glom Filt Rate - Afr Amer 71 mL/min (>60); Glucose 122 mg/dL (74-106); Potassium 3.8 mmol/L (3.5-5.1); Sodium Level 141 mmol/L (136-145)
== END ==
PROVIDERS: PCP Internal Medicine; Referring Provider Internal Medicine Cardiovascular Disease; Visit Provider Internal Medicine Cardiovascular Disease
DX: I48.0 Paroxysmal atrial fibrillation (principal); I48.92 Unspecified atrial flutter; I50.22 Chronic systolic (congestive) heart failure
CPT/HCPCS: 36415; 71046; 80048; 84443

== ENCOUNTER → 2020-10-12 10:21 | Day surgery (SDC) | payer MEDICARE, OTHER, SELFPAY ==
[2020-10-05 14:45] VITALS: BMI 27.4
[2020-10-11 14:38] VITALS: BMI 27.4
== END ==
PROVIDERS: PCP Internal Medicine; Referring Provider Internal Medicine Cardiovascular Disease; Visit Provider Internal Medicine Cardiovascular Disease
DX: I48.0 Paroxysmal atrial fibrillation (principal); I48.92 Unspecified atrial flutter; Z53.8 Procedure and treatment not carried out for other reasons; Z91.14 Patient's other noncompliance with medication regimen

== ENCOUNTER 2020-10-26 06:00 | Emergency (ER) | payer MEDICARE, OTHER, SELFPAY ==
[2020-10-26] VITALS (12 sets, daily range): BP systolic 126–178; BP diastolic 78–96; PULSE 69–76; RESP 10–17; TEMP 35.4–36.1; O2SAT 96–100; BMI 30.7
--- NOTE | 2020-10-26 06:01 | EKG12_ITS ---
Test Reason : STROKE Blood Pressure : / mmHG Vent. Rate : 074 BPM Atrial Rate : 074 BPM P-R Int : 144 ms QRS Dur : 196 ms QT Int : 518 ms P-R-T Axes : 232 -67 111 degrees QTc Int : 574 ms Atrial-sensed ventricular-paced rhythm Abnormal ECG Confirmed by BEVERLEY ARITA, LISA ([id number]), continuity editor YAZMIN ISLAS ([id number]) on 10/28/2020 9:09:10 AM Referred By: MR Confirmed By:LISA LOWERY MD
--- NOTE | 2020-10-26 06:01 | CT_ITS ---
We are attempting to reach an attending provider to discuss findings. An addendum with communication details will be sent when the communication is complete. STUDY: CT HEAD STROKE PROTOCOL W/O CONTRAST INJECTION REASON FOR EXAM: Male, 75 years old. Neuro deficit, acute, stroke suspected RADIATION DOSAGE (If Supplied By Facility): CTDIvol = ( ) mGy, DLP = ( ) mGycm TECHNIQUE: Transaxial CT imaging of the brain was performed without administration of intravenous contrast material. Individualized dose optimization techniques were used for this CT. COMPARISON: CT head August 21, 2018, May 09, 2020 FINDINGS: Normal soft tissue structures. Normal calvarium. There is blood within the right anterior horn right posterior horn and a trace amount of hyperdensity within the left posterior horn there is a 3.4 x 1.6 x 1.0 cm high density focus within the right thalamus extending to the right periventricular white matter compatible with thalamic hemorrhage. There is a prior lacunar infarct in the left putamen. Normal brainstem. There is mild cerebellar atrophy. There is no intracranial hemorrhage. There are no findings of an acute ischemic infarction. Normal visualized paranasal sinuses. CT/STROKE Brain/Head without Cont IMPRESSION: Acute Right thalamic bleed with intraventricular extension consider hypertensive bleed and/or hemorrhagic infarct. Electronically Signed: Rena Perez MD at 6:16 EDT Tel , Service support ,
--- NOTE | 2020-10-26 06:03 | ED.RN ---
call to [facility] at this time
--- NOTE | 2020-10-26 06:15 | EKG12_ITS ---
Test Reason : STROKE Blood Pressure : / mmHG Vent. Rate : 073 BPM Atrial Rate : 073 BPM P-R Int : 326 ms QRS Dur : 130 ms QT Int : 434 ms P-R-T Axes : -69 -11 -67 degrees QTc Int : 478 ms Unusual P axis, possible ectopic atrial rhythm with First Degree AV Block Non-specific intra-ventricular conduction block Inferior infarct , age undetermined , cannot be excluded Abnormal ECG Confirmed by BEVERLEY ARITA, LISA ([id number]), video tape editor YAZMIN ISLAS ([id number]) on 10/28/2020 9:08:28 AM Referred By: MR Confirmed By:LISA LOWERY MD
[2020-10-26 06:17] LABS: Absolute Lymphocyte Count 0.74 X10^3/uL (0.83-4.51); Absolute Neutrophil Count 2.1 X10^3/uL (2.0-7.7); Basophil# 0.01 X10^3/uL; Basophil% 0.3 % (0-1); Eosinophil# 0.11 X10^3/uL; Eosinophils% 3.2 % (0-5); Hematocrit 42.4 % (40-54); Lymphocyte # 0.74 X10^3/ul (0.83-4.51); Lymphocyte % 21.3 % (19-41); Mean Platelet Vol. 11.8 fl (6.2-12.0); Monocyte# 0.46 X10^3/uL; Monocyte% 13.3 % (0-10); NRBC Flagged by Analyzer 0 % (0-5); Neutrophil # 2.14 X10^3/uL (2.7-7.7); Neutrophil % 61.6 % (47-70); Platelet Count 114 K/mm3 (150-450); RBC Distribution Width CV 13.7 % (11.6-14.6); RBC Distribution Width SD 50.7 fl (35.1-43.9); Red Blood Count 4.24 M/mm3 (4.6-6.2); White Blood Count 3.5 K/mm3 (4.4-11.0)
--- NOTE | 2020-10-26 06:21 | EDS_ITS ---
HPI History of Present Illness Chief Complaint: Neuro S/Sx Narrative Narrative: Patient presenting for evaluation secondary to strokelike symptoms. Patient went to bed at about 12:30 AM today. He was at his baseline at that time. Patient is presenting now secondary to left-sided weakness. This was sudden onset when he woke up and is associated with left facial droop, left arm weakness, and left leg weakness. Patient denies any numbness. Denies any speech difficulty. Denies any visual changes. Patient does have an underlying history of atrial fibrillation he is anticoagulated on Eliquis he did take his nighttime dose. Denies any headaches. Review of systems otherwise negative. EMS activated a prehospital stroke team on the patient due to his asymmetric neurologic symptoms. 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) Paroxysmal atrial fibrillation Paroxysmal ventricular tachycardia Polyneuropathy Renal insufficiency Sick sinus syndrome Home Medications prednisolone acetate 1 drp EACH EYE QHS 08/07/18 [History Last Taken 08/16/18] tamsulosin 0.4 mg PO DAILY 08/07/18 [History Last Taken 08/16/18] ferrous sulfate 27 mg iron tablet 60 mg PO DAILY tab 11/25/18 [History Last Taken Unknown] gabapentin 300 mg capsule 300 mg PO BID 06/19/19 [History Last Taken Unknown] venlafaxine 150 mg capsule,extended release 24 hr 150 mg PO DAILY 06/19/19 [History Last Taken Unknown] aspirin 81 mg tablet,delayed release 81 mg PO DAILY 01/26/20 [History Last Taken Unknown] apixaban 2.5 mg tablet 2.5 mg PO BID #60 tab 03/02/20 [Rx Last Taken Unknown] rosuvastatin 40 mg tablet 40 mg PO QHS #90 tab 03/02/20 [Rx Last Taken Unknown] amiodarone 200 mg tablet 200 mg PO DAILY #90 tab 07/26/20 [Rx Last Taken Unknown] brimonidine 0.2 %-timolol 0.5 % eye drops 1 drp OPHTHALMIC (EYE) BID ml 10/05/20 [History Last Taken Unknown] buspirone 10 mg tablet 10 mg PO BID tab 10/05/20 [History Last Taken Unknown] furosemide 40 mg tablet 40 mg PO Q OTHER DAY tab 10/05/20 [History Last Taken Unknown] Allergy/AdvReac Type Severity Reaction Status Date / Time Penicillins AdvReac Mild Upset Verified 10/26/20 06:27 Stomach SEASONAL Allergy Mild Other Uncoded 10/26/20 06:27 Family History Mother CVA (cerebral vascular accident) Hypertension Sister Hypertension Daughter Brain aneurysm Surgical History H/O coronary artery bypass surgery (06/28/04) History of cardioversion (2017) History of coronary artery stent placement (06/2007) History of electrophysiologic study (05/2008) History of permanent cardiac pacemaker placement (08/19/12) History of right hip replacement Social History Smoking Status: Never smoker alcohol intake: never substance use type: does not use caffeine: Yes Type: coffee Number of servings: 3 what type of physical activity do you participate in: none seatbelt use: always do you feel safe at home: Yes ROS ROS ED Constitutional Constitutional ED: Denies chills or fever(s) ENT ENT ED: Denies rhinorrhea Cardiovascular Cardiovascular: Denies chest pain Respiratory/Chest Respiratory/Chest: Denies cough or dyspnea Gastrointestinal Gastrointestinal: Denies abdominal pain, diarrhea, nausea or vomiting Genitourinary Genitourinary ED: Denies dysuria or hematuria Musculoskeletal Musculoskeletal: Denies back pain Integumentary Denies rash Neurologic Neurologic: Reports weakness Psychiatric Psychiatric: Denies depression Endocrine Endocrinology: Denies fatigue Allergic/Immunologic Allergic/Immunologic ED: Denies urticaria EXAM Physical Exam Const Vital Signs: 10/26/20 06:11 10/26/20 06:13 10/26/20 06:20 Temperature 95.8 F L Temperature Source Temporal Pulse Rate 72 69 Respiratory Rate 12 15 Blood Pressure 173/96 H 178/94 H Blood Pressure Mean 121 122 Pulse Ox 96 97 97 Oxygen Delivery Method Room Air Room Air Room Air 10/26/20 06:21 10/26/20 06:23 10/26/20 06:28 Temperature Temperature Source Pulse Rate 72 71 70 Respiratory Rate 16 14 10 L Blood Pressure 178/94 H 178/94 H 166/94 H Blood Pressure Mean 122 122 118 Pulse Ox 98 99 Oxygen Delivery Method Room Air Room Air 10/26/20 06:31 10/26/20 06:34 10/26/20 06:40 Temperature Temperature Source Pulse Rate 70 69 71 Respiratory Rate 11 L 12 14 Blood Pressure 166/86 H 166/86 H 146/78 H Blood Pressure Mean 112 112 100 Pulse Ox 100 99 98 Oxygen Delivery Method Room Air Room Air Positive well nourished and well developed Constitutional Narrative: Airway is patent, breath sounds are equal bilateral, peripheral pulses are 2+ and symmetric. GCS is 15. General Appearance ED: well developed and NAD HEENT Reports moist mucous membranes Negative for trauma or tenderness Eyes EOMs intact bilaterally Neck no lymphadenopathy, supple and no JVD Chest Wall inspection of chest normal Resp normal respiratory effort and clear to auscultation bilaterally Cardio regular rate, regular rhythm and peripheral pulses 2+ throughout Cardio Narrative: Regular rate and rhythm, 2 out of 6 systolic murmur noted. GI normal to inspection, nondistended, normoactive bowel sounds, non-tender and no masses Palpation: soft Back/Spine normal to inspection Extremity normal to inspection General Extremety ED: Negative for tenderness Neuro oriented x3 Neuro Narrative: NIH stroke scale is 12 secondary to the patient having very mild left facial droop, paralysis of the left arm and left leg, and mild extinction inattention to the left with a predominance of gaze to the right side that is able to be overcome. Patient has loss of sensation on the left as well Sensorium / Orientation: alert Cranial Nerves: other Psych mental status grossly normal Skin no rashes or lesions noted STROKE Vital Signs/Narrative: Vital Signs Temp Pulse Resp BP Pulse Ox 10/26/20 06:40 71 14 146/78 H 98 10/26/20 06:34 69 12 166/86 H 99 10/26/20 06:31 70 11 L 166/86 H 100 10/26/20 06:28 70 10 L 166/94 H 99 10/26/20 06:23 71 14 178/94 H 10/26/20 06:21 72 16 178/94 H 98 10/26/20 06:20 97 10/26/20 06:13 95.8 F L 69 15 178/94 H 97 10/26/20 06:11 72 12 173/96 H 96 MDM MDM MDM Narrative Medical decision making narrative: Patient presented as a prehospital stroke team. I evaluated the patient upon arrival from the ambulance bay he was protecting his airway was taken immediately to CT. Patient's noncontrasted head CT demonstrated intraparenchymal hemorrhage. Patient was immediately brought back to the resuscitation bay and his evaluation was completed. His NIH stroke scale was 12 is noted. Patient is protecting his airway, is awake and alert. Patient requested to be transferred to the [facility]. He did report that he took his Eliquis last night. Per the intracranial hemorrhage protocol, Kcentra was ordered on the patient. Patient was noted to be hypertensive he will be placed on a Cardene drip. He is also given vitamin K. I discussed patient's case with the [facility] neurosurgery who requested the patient be loaded with 500 mg of Keppra this was also ordered. Patient will be auto launched by helicopter for treatment of intraparenchymal hemorrhage. Critical care transport became available at the patient's bedside at 0645. Patient will be transferred by air to [facility] for definitive management of his intraparenchymal hemorrhage. Lab Data Labs: Laboratory Results - last 24 hr 10/26/20 10/26/20 10/26/20 06:13 06:13 06:13 WBC 3.5 L RBC 4.24 L Hgb 14.0 Hct 42.4 MCV 100.0 H MCH 33.0 H MCHC 33.0 RDW Std Deviation 50.7 H RDW Coeff of Su 13.7 Plt Count 114 L MPV 11.8 Immature Gran % (Auto) 0.300 Neut % (Auto) 61.6 Lymph % (Auto) 21.3 [place] % (Auto) 13.3 H Eos % (Auto) 3.2 Baso % (Auto) 0.3 Absolute Neuts (auto) 2.1 Absolute Lymphs (auto) 0.74 L Nucleated RBC % 0 PT 15.0 H INR 1.3 APTT 35.8 Sodium 142 Potassium 3.1 L Chloride 109 H Carbon Dioxide 27.0 Anion Gap 6 BUN 19 H Creatinine 1.24 Estim Creat Clear Calc 51.51 Est GFR (MDRD) Af Amer 73 Est GFR (MDRD) Non-Af 60 BUN/Creatinine Ratio 15.3 Glucose 162 H Calcium 8.3 L Troponin I High Sens 312 H* Radiography Diagnostic Testing: Radiology Impression Brain CT 10/26/20 06:01 IMPRESSION: Acute Right thalamic bleed with intraventricular extension consider hypertensive bleed and/or hemorrhagic infarct. Electronically Signed: Rena Perez MD at 6:16 EDT Tel , Service support , ADDENDUM: 10/26/20625 IMPRESSION: Acute Right thalamic bleed with intraventricular extension consider hypertensive bleed and/or hemorrhagic infarct. N.B. : The above Results were Read Back by Rena Perez MD to Dr. Nicolette MD, and understanding confirmed on 10/26/2020 06:19:07 (ET). Electronically Signed: Rena Perez MD at 6:16 EDT Tel , Service support , EKG Initial EKG: Attestation: I personally reviewed and interpreted this EKG as follows: (Atrially sensed ventricularly paced rhythm at 74 no acute ischemic changes are noted.) Stroke Documentation Questions Stroke Team Activated: Yes Critical Care Time Critical care time (excluding procedures): 30-74 minutes (57), Including time spent:, Discussing w/Patient &/or Family/Special Education Secretary, Discussing w/Consultants, Arranging Admission or Transfer and Performing Direct Patient Care at Bedside Discharge Plan Triage Chief Complaint: Neuro S/Sx ED Provider: Martínez Will Dx/Rx/DC Orders Clinical Impression: Acute spont intraparenchymal hemorrhage assoc w/ hypertension Prescriptions: No Action ferrous sulfate 27 mg iron tablet 60 mg PO DAILY RF: 0 aspirin [Adult Low Dose Aspirin] 81 mg tablet,delayed release (DR/EC) 81 mg PO DAILY RF: 0 furosemide 40 mg tablet 40 mg PO Q OTHER DAY RF: 0 [place] 0.2-0.5 % drops 1 drp ophthalmic (eye) BID RF: 0 buspirone 10 mg tablet 10 mg PO BID RF: 0 prednisolone acetate 5 ML drops,suspension 1 drp EACH EYE QHS RF: 0 tamsulosin 0.4 MG capsule 0.4 mg PO DAILY RF: 0 gabapentin 300 mg capsule 300 mg PO BID RF: 0 venlafaxine 150 mg capsule,extended release 24hr 150 mg PO DAILY RF: 0 Eliquis 2.5 mg tablet 2.5 mg PO BID Qty: 60 RF: 12 rosuvastatin 40 mg tablet 40 mg PO QHS Qty: 90 RF: 3 amiodarone 200 mg tablet 200 mg PO DAILY Qty: 90 RF: 3 Primary Care Provider: Josemanuel Riley Referrals: Josemanuel Riley MD [Primary Care Provider] - Disposition Disposition: Acute Care Hospital Discharge Location: [facility]
[2020-10-26] MEDS: Nicardipine HCl-0.9% Sod Chlor 20 MG/200 ML IV.SOLN 50 MG IV (06:23)
[2020-10-26 06:26] LABS: International Normalized Ratio 1.3
[2020-10-26 06:27] LABS: Partial Thromboplast Time 35.8 Seconds (24.1-36.2)
--- NOTE | 2020-10-26 06:39 | NURSING ---
[facility] H 22 BED 4 NURSE TO NURSE [phone]
[2020-10-26 06:41] LABS: Anion Gap 6 (5-15); BUN 19 mg/dL (7-18); BUN/Creat Ratio 15.3 RATIO (10-20); Calcium,Total 8.3 mg/dL (8.5-10.1); Chloride 109 mmol/L (98-107); Creatinine, Serum 1.24 mg/dL (0.70-1.30); EST Glomerular Filtration Rate 60 mL/min (>60); Est Glom Filt Rate - Afr Amer 73 mL/min (>60); Estimated Creatinine Clearance 51.51 ml/min; Glucose 162 mg/dL (74-106); Potassium 3.1 mmol/L (3.5-5.1); Sodium Level 142 mmol/L (136-145); Troponin-I HS 312 pg/mL (3.0-78.0)
== END 2020-10-26 06:55 | disposition short-term general hospital (02) ==
PROVIDERS: Emergency Provider Emergency Medicine; PCP Internal Medicine
DX: I62.9 Nontraumatic intracranial hemorrhage, unspecified (principal); R29.810 Facial weakness; G81.94 Hemiplegia, unspecified affecting left nondominant side; I11.0 Hypertensive heart disease with heart failure; R29.712 NIHSS score 12; I50.22 Chronic systolic (congestive) heart failure; I25.10 Atherosclerotic heart disease of native coronary artery without angina pectoris; E78.5 Hyperlipidemia, unspecified; I48.0 Paroxysmal atrial fibrillation; Z79.02 Long term (current) use of antithrombotics/antiplatelets; Z79.899 Other long term (current) drug therapy
CPT/HCPCS: 70450; 80048; 84484; 85025; 85610; 85730; 93005; 96365; 99285; J7050; J7168; A4216; J3490